=== PATIENT | female | born 1955 | race African-American/Black ===

== ENCOUNTER 2020-09-10 08:32 | Day surgery (SDC) | payer BC, OTHER, SELFPAY ==
[2020-09-03 10:56] VITALS: BMI 45.6
--- NOTE | 2020-09-05 16:39 | MHC.SHP ---
Pre-Procedural Eval Section A The patient is an INPATIENT: No The History & Physical has been completed within 30 days and I have reviewed it.: Yes Section B Chief Complaint: Cataract Left Eye Allergies: Allergies Allergy/AdvReac Type Severity Reaction Status Date / Time No Known Allergies Allergy Unverified 09/03/20 10:48 [No Known Allergies*] Plan Diagnosis/Plan: Unchanged I have reviewed the history and physical and performed a pertinent physical examination on my patient. No changes have occurred unless specified.
--- NOTE | 2020-09-07 08:50 | HO.ANESPROP2 ---
Documented by User: Lolita Feliz 09/07/20 08:50 HPI - Anesthesia Eval Consult details Narrative: 65yo F for Left Cataract Extraction IOL Insertion No prev cataract PCP cleared [facility] Past Medical History Medical History (Updated 09/10/20 @ 09:38 by Monica Pal) Asthma Cervical radiculopathy Constipation Cough GERD (gastroesophageal reflux disease) Iron deficiency anemia Obesity ADITYA on CPAP Osteoarthritis Pre-diabetes Urge incontinence Surgical History Surgical History History of ankle surgery Hx of section Hx of colonoscopy Social History Social History Smoking Status: Never smoker Use of substances other than those prescribed or required for medical reasons: No Have you been hit, kicked, punched, or otherwise hurt by someone within the past year? If so, by whom?: No Advance Directives: No Advance Directives Information Provided: No Advance Directives on File: No Recently lost weight without trying: No Meds Allergies Allergy/AdvReac Type Severity Reaction Status Date / Time No Known Allergies Allergy Unverified 09/03/20 10:48 [No Known Allergies*] Home Medications Medication Instructions Recorded Confirmed Last Taken Type albuterol sulfate 1 vial INHALATION Q4H PRN 09/03/20 09/03/20 Unknown History albuterol sulfate 2 puff INHALATION Q4H PRN 09/03/20 09/03/20 Unknown History benzonatate 1 cap PO Q8H PRN 09/03/20 09/03/20 Unknown History fluconazole 1 tab PO 09/03/20 Unknown History fluticasone propion-salmeterol 2 puff INHALATION BID 09/03/20 09/03/20 Unknown History [Advair HFA] hydrochlorothiazide 1 tab PO DAILY 09/03/20 09/03/20 Unknown History montelukast 1 tab PO DAILY 09/03/20 09/03/20 Unknown History naproxen 1 tab PO BID 09/03/20 09/03/20 Unknown History solifenacin 1 tab PO DAILY 09/03/20 09/03/20 Unknown History Exam Exam Date and Time: September 07, 2020 0850 Height,Weight and Vital Signs: Height 5 ft 5 in Weight 124.284 kg Assessment and Plan Assessment Anesthesia Assessment: Chart Reviewed Documented by User: Monica Pal 09/10/20 09:38 [facility] Past Medical History Medical History (Updated 09/10/20 @ 09:38 by Monica Pal) Asthma Cervical radiculopathy Constipation Cough GERD (gastroesophageal reflux disease) Iron deficiency anemia Obesity ADITYA on CPAP Osteoarthritis Pre-diabetes Urge incontinence Family History Family history of problems with anesthesia: No Surgical History Surgical History History of ankle surgery Hx of section Hx of colonoscopy History of Problems with Anesthesia: No Social History Social History Smoking Status: Never smoker Use of substances other than those prescribed or required for medical reasons: No Have you been hit, kicked, punched, or otherwise hurt by someone within the past year? If so, by whom?: No Advance Directives: No Advance Directives Information Provided: No Advance Directives on File: No Recently lost weight without trying: No Meds Allergies Allergy/AdvReac Type Severity Reaction Status Date / Time No Known Allergies Allergy Unverified 09/03/20 10:48 [No Known Allergies*] Home Medications Medication Instructions Recorded Confirmed Last Taken Type albuterol sulfate 1 vial INHALATION Q4H PRN 09/03/20 09/03/20 Unknown History albuterol sulfate 2 puff INHALATION Q4H PRN 09/03/20 09/03/20 Unknown History benzonatate 1 cap PO Q8H PRN 09/03/20 09/03/20 Unknown History fluconazole 1 tab PO 09/03/20 Unknown History fluticasone propion-salmeterol 2 puff INHALATION BID 09/03/20 09/03/20 Unknown History [Advair HFA] hydrochlorothiazide 1 tab PO DAILY 09/03/20 09/03/20 Unknown History montelukast 1 tab PO DAILY 09/03/20 09/03/20 Unknown History naproxen 1 tab PO BID 09/03/20 09/03/20 Unknown History solifenacin 1 tab PO DAILY 09/03/20 09/03/20 Unknown History Exam Height,Weight and Vital Signs: Vital Signs Temp Pulse Resp BP Pulse Ox 09/10/20 08:52 97.8 F 80 16 126/77 97 Airway Mallampati Class: II TM Dist: >3cm Neck ROM: Full Heart: RRR Lungs: CTAB Assessment and Plan Assessment Anesthesia Assessment: Anesthesia Plan Discussed and Chart Reviewed Final Anesthetic Review NPO: Yes ASA Class: III Final Preanesthetic Review: No Changes in Pt Med Stat, Meds/Allgs Chart Reviewed, Consent Obtained/Reviewed and Anes Risks/Benef Reviewed Patient Risk: Intermediate Procedure Risk: Low Assessment/Block/Sedation in SS: Assess/Block/Sedation-SS Anesthetic Plan Anesthetic Plan: MAC: Disposition: Standard PACU
[2020-09-10 08:52] VITALS: BP 126/77; PULSE 80; RESP 16; TEMP 36.6; O2SAT 97
[2020-09-10] MEDS: Lactated Ringers 500 ML 50 ML IV (09:13)
[2020-09-10] MEDS: Tropicamide 1 % Ophth Sol 3 ML BTL 1 DROP EYE-LEFT ×3 (09:13→09:21)
[2020-09-10] MEDS: Tetracaine HCl/PF 0.5% Oph Sol 4 ML DROPS 1 DROP EYE-LEFT (09:13)
[2020-09-10] MEDS: Phenylephrine HCL 2.5% Oph SoL 2 ML BOTTLE 1 DROP EYE-LEFT ×3 (09:16→09:24)
[2020-09-10 10:14] VITALS: BP 129/70; PULSE 63; RESP 16; TEMP 36.1; O2SAT 97
== END 2020-09-10 10:28 | disposition home or self-care (01) ==
PROVIDERS: PCP Internal Medicine; Visit Provider Ophthalmology
PROC: (CPT 66985; principal; 2020-09-10 10:30)
DX: H25.12 Age-related nuclear cataract, left eye (principal); H52.4 Presbyopia; H52.13 Myopia, bilateral; I10 Essential (primary) hypertension; J45.909 Unspecified asthma, uncomplicated; R73.03 Prediabetes; G47.33 Obstructive sleep apnea (adult) (pediatric)
CPT/HCPCS: 66984; J2250; J3010; J3300; V2632

== ENCOUNTER 2020-09-24 07:13 | Day surgery (SDC) | payer BC, OTHER, SELFPAY ==
[2020-09-03 11:26] VITALS: BMI 45.6
--- NOTE | 2020-09-19 07:49 | MHC.SHP ---
Pre-Procedural Eval Section A The patient is an INPATIENT: No The History & Physical has been completed within 30 days and I have reviewed it.: Yes Section B Chief Complaint: Cataract Right Eye Allergies: Allergies Allergy/AdvReac Type Severity Reaction Status Date / Time No Known Allergies Allergy Unverified 09/03/20 10:48 [No Known Allergies*] Plan Diagnosis/Plan: Unchanged I have reviewed the history and physical and performed a pertinent physical examination on my patient. No changes have occurred unless specified.
--- NOTE | 2020-09-21 12:38 | P.CONAN_ITS ---
Documented by User: Lolita Perezney 09/21/20 12:39 HPI - Anesthesia Eval Consult details Narrative: 65yo F for Right Cataract Extraction IOL Insertion Left eye 09/10 fent 100, mid 2 PCP cleared [facility] Active Problems Active Problems: All Active Problems (Updated 09/10/20 @ 09:38 by Monica Pal) Cough (Acute) Past Medical History Medical History Asthma Cervical radiculopathy Constipation Cough GERD (gastroesophageal reflux disease) Iron deficiency anemia Obesity ADITYA on CPAP Osteoarthritis Pre-diabetes Urge incontinence Surgical History Surgical History History of ankle surgery Hx of section Hx of colonoscopy Social History Social History Are you a primary career and technology education teacher to a significant other at home: No Do you presently have visiting nurse or other home services: No Smoking Status: Never smoker Use of substances other than those prescribed or required for medical reasons: No Have you been hit, kicked, punched, or otherwise hurt by someone within the past year? If so, by whom?: No Advance Directives: No Advance Directives Information Provided: No Advance Directives on File: No Recently lost weight without trying: No Meds Allergies Allergy/AdvReac Type Severity Reaction Status Date / Time No Known Allergies Allergy Unverified 09/03/20 10:48 [No Known Allergies*] Home Medications Medication Instructions Recorded Confirmed Last Taken Type albuterol sulfate 1 vial INHALATION Q4H PRN 09/03/20 09/03/20 Unknown History albuterol sulfate 2 puff INHALATION Q4H PRN 09/03/20 09/03/20 Unknown History benzonatate 1 cap PO Q8H PRN 09/03/20 09/03/20 Unknown History fluconazole 1 tab PO 09/03/20 Unknown History fluticasone propion-salmeterol 2 puff INHALATION BID 09/03/20 09/03/20 Unknown History [Advair HFA] hydrochlorothiazide 1 tab PO DAILY 09/03/20 09/03/20 Unknown History montelukast 1 tab PO DAILY 09/03/20 09/03/20 Unknown History naproxen 1 tab PO BID 09/03/20 09/03/20 Unknown History solifenacin 1 tab PO DAILY 09/03/20 09/03/20 Unknown History Exam Exam Date and Time: September 21, 2020 1238 Height,Weight and Vital Signs: Height 5 ft 5 in Weight 124.284 kg Assessment and Plan Assessment Anesthesia Assessment: Chart Reviewed Documented by User: Deion Canchola 09/24/20 08:29 [facility] Past Medical History Medical History Asthma Cervical radiculopathy Constipation Cough GERD (gastroesophageal reflux disease) Iron deficiency anemia Obesity ADITYA on CPAP Osteoarthritis Pre-diabetes Urge incontinence Surgical History Surgical History History of ankle surgery Hx of section Hx of colonoscopy Social History Social History Are you a primary career and technology education teacher to a significant other at home: No Do you presently have visiting nurse or other home services: No Smoking Status: Never smoker Use of substances other than those prescribed or required for medical reasons: No Have you been hit, kicked, punched, or otherwise hurt by someone within the past year? If so, by whom?: No Advance Directives: No Advance Directives Information Provided: No Advance Directives on File: No Recently lost weight without trying: No Meds Allergies Allergy/AdvReac Type Severity Reaction Status Date / Time No Known Allergies Allergy Unverified 09/03/20 10:48 [No Known Allergies*] Home Medications Medication Instructions Recorded Confirmed Last Taken Type albuterol sulfate 1 vial INHALATION Q4H PRN 09/03/20 09/03/20 Unknown History albuterol sulfate 2 puff INHALATION Q4H PRN 09/03/20 09/03/20 Unknown History benzonatate 1 cap PO Q8H PRN 09/03/20 09/03/20 Unknown History fluconazole 1 tab PO 09/03/20 Unknown History fluticasone propion-salmeterol 2 puff INHALATION BID 09/03/20 09/03/20 Unknown History [Advair HFA] hydrochlorothiazide 1 tab PO DAILY 09/03/20 09/03/20 Unknown History montelukast 1 tab PO DAILY 09/03/20 09/03/20 Unknown History naproxen 1 tab PO BID 09/03/20 09/03/20 Unknown History solifenacin 1 tab PO DAILY 09/03/20 09/03/20 Unknown History Exam Airway Mallampati Class: III TM Dist: >3cm Neck ROM: Full Denture: Upper Heart: [id number] Lungs: cta b/l Assessment and Plan Assessment Anesthesia Assessment: Anesthesia Plan Discussed, PAT Visit and Chart Reviewed Final Anesthetic Review NPO: Yes ASA Class: III Final Preanesthetic Review: No Changes in Pt Med Stat, Meds/Allgs Chart Reviewed, Consent Obtained/Reviewed and Anes Risks/Benef Reviewed Patient Risk: Intermediate Procedure Risk: Low Assessment/Block/Sedation in SS: Assess/Block/Sedation-SS Anesthetic Plan Anesthetic Plan: MAC: and Agree w/ Assess. and Plan Disposition: Standard PACU
[2020-09-24 07:57] VITALS: BP 130/94; PULSE 67; RESP 18; TEMP 36.6; O2SAT 96
[2020-09-24] MEDS: Tetracaine HCl/PF 0.5% Oph Sol 4 ML DROPS 1 DROP EYE-RIGHT (08:02)
[2020-09-24] MEDS: Tropicamide 1 % Ophth Sol 3 ML BTL 1 DROP EYE-RIGHT ×3 (08:02→08:05)
[2020-09-24] MEDS: Phenylephrine HCL 2.5% Oph SoL 2 ML BOTTLE 1 DROP EYE-RIGHT ×3 (08:03→08:06)
[2020-09-24] MEDS: Lactated Ringers 500 ML 50 ML IV (08:14)
--- NOTE | 2020-09-24 09:28 | HO.PNOPHT ---
Ophthalmology Procedure Procedure Date of Service: 09/24/20 Ophthalmology Viscoelastic: Shahnaz Horant Dual Pack Pro Ophthalmology Lenses: TECSAMARA [id number] (15) Procedure Notes: PREOPERATIVE DIAGNOSIS: Decreased visual acuity right eye secondary to cataract POSTOPERATIVE DIAGNOSIS: Same PROCEDURE: Right cataract extraction with intraocular lens insertion SURGEON: Walker Jacinto M.D. ANESTHESIA: Topical/MAC ESTIMATED BLOOD LOSS: None COMPLICATIONS: None After obtaining informed consent, the patient was brought to the operating room suite and placed in the supine position. After adequate sedation per anesthesia, topical drops of Tetracaine were given to the right eye. The eye was then prepped and draped in the usual sterile fashion. The operating room microscope was then positioned over the operative eye and a lid speculum placed. A paracentesis was created. Viscoelastic was then instilled into the anterior chamber. A three plane incision was then created temporally, utilizing a 2.85 mm keratome. Capsulotomy forceps were then utilized to create a circular tear capsulotomy. Hydrodissection and hydrodelineation were carried out until adequate mobilization of the nucleus occurred. Phacoemulsification was then utilized to remove the dense central nucleus followed by removal of the cortical material utilizing the automated aspiration irrigation unit. Viscoelastic was instilled into the posterior capsular bag followed by placement of a posterior chamber intraocular lens without difficulty. The residual Viscoelastic was then removed utilizing the automated IA machine. The wound was checked and found to be watertight. The patient tolerated the procedure well and the lid speculum was removed. Intracameral injection of Vigamox 0.1 mL followed by a subtenon injection of Kenalog-40 0.2 mL were administered. The patient will be seen in the a.m.
[2020-09-24 09:30] VITALS: BP 141/84; PULSE 67; RESP 16; TEMP 36.5; O2SAT 100
== END 2020-09-24 09:45 | disposition home or self-care (01) ==
PROVIDERS: PCP Internal Medicine; Visit Provider Ophthalmology
PROC: (CPT 66985; principal; 2020-09-24 08:40)
DX: H25.11 Age-related nuclear cataract, right eye (principal); H52.13 Myopia, bilateral; H52.4 Presbyopia; I10 Essential (primary) hypertension; G47.33 Obstructive sleep apnea (adult) (pediatric); J45.909 Unspecified asthma, uncomplicated; Z79.51 Long term (current) use of inhaled steroids; Z79.899 Other long term (current) drug therapy
CPT/HCPCS: 66984; J2250; J3010; J3300; V2632

== ENCOUNTER 2021-12-09 12:46 | Outpatient (REF) | payer BC, SELFPAY ==
[2021-12-09 13:06] VITALS: BP 133/72; PULSE 83; RESP 16; TEMP 36.9; O2SAT 98
[2021-12-09 13:07] VITALS: BMI 38.5
== END 2021-12-09 12:47 | disposition home or self-care (01) ==
LOC: HO.MS 12:46
PROVIDERS: Visit Provider Ophthalmology
PROC: (CPT 66821; principal; 2021-12-09 14:50)
DX: H26.491 Other secondary cataract, right eye (principal); H35.61 Retinal hemorrhage, right eye; Z96.1 Presence of intraocular lens; I10 Essential (primary) hypertension; J45.909 Unspecified asthma, uncomplicated; E11.9 Type 2 diabetes mellitus without complications; Z79.899 Other long term (current) drug therapy
CPT/HCPCS: 66821

== ENCOUNTER 2024-05-04 10:33 | Outpatient (AMB) | payer MEDICARE, OTHER, SELFPAY ==
--- NOTE | 2024-05-04 10:35 | MHC.OFFVIS ---
Vital Signs 05/04/24 10:38 Height 5 ft 5.5 in Weight 246 lb 14.684 oz BMI 40.5 BP 130/64 Blood Pressure Location Rt brachial Position Sitting Pulse 92 Pulse Oximetry (%) 98 Oxygen Delivery Method Room Air Intake Visit Reasons: asthma/aditya Catalogue Illustrator Required: No Service Trainer: Service Trainer offered & declined Accompanied by: Self / Same As Patient Allergies No Known Allergies [No Known Allergies*] Allergy (Unverified 05/04/24 10:42) Medication List - Last Reconciled 05/04/24 by Hannah Ward LPN albuterol sulfate 90 mcg/actuation 2 puffs inhalation Q4H PRN albuterol sulfate 1 vial inhalation Q4H PRN alendronate (Fosamax) 70 mg PO QWEEK benzonatate 1 cap PO Q8H PRN fluconazole 1 tab PO hydrochlorothiazide 1 tab PO DAILY montelukast 1 tab PO DAILY semaglutide (Ozempic) 1 mg subcut QWEEK solifenacin 1 tab PO DAILY HPI Comments Details: The patient is here for pulmonary evaluation. The patient is a 68 year woman with known history of asthma in addition to obstructive sleep apnea. She has been having worsening respiratory symptoms and she was made an appointment. Apparently she was initially diagnosed in her young adult years. She was initially treated by her primary care doctor and she felt that she received too much steroids. Subsequently after that she felt that she started developing complications from the steroids including cataracts and also osteoporosis. Subsequently after that she stopped taking any inhaled steroid medication. She had been on Advair for some time. It did bother her throat it was the disc is preparation and therefore she stopped taking it. She continued to use a Combivent inhaler and she also had a albuterol rescue inhaler. Sleep study at this time though. Recently the patient did have knee surgery and she was recovering to physical therapy. She started developing worsening shortness of breath chest tightness and wheezing. She was asked by her therapist to use her inhaler prior to the physical therapy but still continued to have significant wheezing. Therefore it was recommended that she seek pulmonary care. She had been seen at [facility] for many years. The patient had numerous studies done including x-rays a CT scan of the chest which we personally reviewed and also PFTs but I can not find PFTs in the last 510 years. Her CTA did demonstrate a small 2-3 mm nodule in the left lower lobe that was not mentioned on the report. This is from a CT scan from 2019. She also had a chest x-ray done in 2021 after she had a fall some discomfort in the x-ray appeared to be completely normal. In regards to her sleep apnea patient was diagnosed many years ago. She had been using CPAP. But during the pandemic she stopped using it and she had been sleeping upright on a recliner or with a wedge and she has been sleeping okay though she has been waking up tired. Her [place] score is elevated 1124. She is wondering if she needs to go back to using her CPAP. She will need to have a sleep study at this time. [facility] Medical History (Updated 05/04/24 @ 22:47 by [place] Scott MD) ADITYA (obstructive sleep apnea) Cough Osteoarthritis Obesity Cervical radiculopathy Constipation Asthma Pre-diabetes GERD (gastroesophageal reflux disease) Iron deficiency anemia Urge incontinence ADITYA on CPAP Surgical History History of ankle surgery Hx of section Hx of colonoscopy Social History (Updated 05/04/24 @ 10:46 by Hannah Ward LPN) Are you a primary patient care to a significant other at home: No Do you presently have visiting nurse or other home services: No Patient Tobacco Use Status: Never used Tobacco Review of Systems Const Reports daytime sleepiness, Reports difficulty sleeping and Reports fatigue Eyes Reports no additional complaints ENT Reports nasal congestion Card Denies chest pain and Reports dyspnea on exertion Resp Reports cough, Reports dyspnea on exertion and Reports wheezing GI Reports no additional complaints Musc Reports as per HPI, Reports abnormal gait and Reports arthralgias Skin/Breast Denies rash Neuro Reports abnormal gait Endo Reports fatigue Cristi/Lymph Reports no additional complaints Aller/Immun Reports wheezing Physical Exam Vital Signs: Last Vital Signs Pulse 92 05/04/24 10:38 BP 130/64 05/04/24 10:38 Pulse Ox 98 05/04/24 10:38 Oxygen Delivery Method Room Air 05/04/24 10:38 BMI result Body Mass Index 40.5 Const General: comfortable HEENT Head: Yes normocephalic Neck Neck: Yes supple Chest Chest palpation & inspection: normal inspection of the chest Resp Effort & Inspection: normal respiratory effort and prolonged expiratory phase Auscultation: wheezes Cardio Heart sounds: S1 normal heart sound present and S2 normal heart sound present GI Palpation (GI): Soft to palpation Skin General skin exam: no rashes or lesions noted Extrem General: No clubbing and No cyanosis Assessment & Plan Assessment & Plan (1) Cough: Code(s): R05 - Cough Category: Medical Qualifiers: Cough type: chronic Qualified Code(s): R05.3 - Chronic cough (2) ADITYA (obstructive sleep apnea): Code(s): G47.33 - Obstructive sleep apnea (adult) (pediatric) Category: Medical (3) Asthma: Code(s): J45.909 - Unspecified asthma, uncomplicated Category: Medical Qualifiers: Asthma severity: moderate Asthma persistence: persistent Asthma complication type: uncomplicated Qualified Code(s): J45.40 - Moderate persistent asthma, uncomplicated Plan start Advair HFA Use spacer EDWAR as needed Hold combivent for now CXR PFT Home PSG F/U 2-3 months Orders: Orders XR chest 2V Today R05 - Cough PFT pulmonary function test Today R05 - Cough RT home sleep study Today G47.33 - Obstructive sleep apnea (adult) (pediatric) Medications: New fluticasone propion-salmeterol 115-21 mcg/actuation (Advair HFA) 2 puffs inhalation Q12H 30 days 12 grams 11RF inhalational spacing device (Aerochamber MV spacer) As directed 1 ea 0RF Coding Level of Care Code New Pt Level 4 (41325) Diagnoses Chronic cough R05.3 Cough type: chronic ADITYA (obstructive sleep apnea) G47.33 Moderate persistent asthma without complication J45.40 Asthma severity: moderate Asthma persistence: persistent Asthma complication type: uncomplicated Time Spent (min) 40
[2024-05-04 10:38] VITALS: BP 130/64; PULSE 92; O2SAT 98; BMI 40.5
== END 2024-05-04 11:20 | disposition home or self-care (01) ==
PROVIDERS: PCP Internal Medicine; Visit Provider Hospitalist
DX: R05.3 Chronic cough (principal); G47.33 Obstructive sleep apnea (adult) (pediatric); J45.40 Moderate persistent asthma, uncomplicated
CPT/HCPCS: 99204

== ENCOUNTER → 2024-05-04 10:33 | Outpatient (BNVA) | payer MEDICARE, OTHER, SELFPAY | PROVIDERS: PCP Internal Medicine; Visit Provider Hospitalist | DX: J45.40 Moderate persistent asthma, uncomplicated (principal); G47.33 Obstructive sleep apnea (adult) (pediatric); R05.3 Chronic cough; Z99.89 Dependence on other enabling machines and devices | CPT/HCPCS: 99202 ==

== ENCOUNTER 2024-07-22 15:54 | Outpatient (REF) | payer MEDICARE, OTHER, SELFPAY ==
--- NOTE | 2024-07-22 15:57 | PFT_ITS ---
Flows: FEV1: 85 % of predicted at 1.74 L FVC: 96 % of predicted at 2.50 L FEV1/FVC: 70 % Bronchodilator response: Present Volumes: Total lung capacity: 79 % of predicted at 4.08 L Residual volume: 88 % of predicted at 1.71 L Slow vital capacity: 73 % of predicted at 2.37 L Expiratory reserve volume: 35 % of predicted at 0.28 L Diffusion capacity: Normal Impression: Combined mild restrictive and reversible mild obstructive ventilatory defect with positive bronchodilator response. Decreased expiratory reserve volume suggests extrathoracic restriction likely secondary to abdominal obesity. MTDD
== END 2024-07-22 15:55 | disposition home or self-care (01) ==
LOC: HO.RESP 15:54
PROVIDERS: PCP Internal Medicine; Visit Provider Hospitalist
DX: R05.9 Cough, unspecified (principal)
CPT/HCPCS: 94010; 94640; 94727; 94729

== ENCOUNTER → 2024-07-22 15:57 | Outpatient (BNV) | payer MEDICARE, OTHER, SELFPAY | PROVIDERS: PCP Internal Medicine; Visit Provider Internal Medicine Pulmonary Disease | DX: R05.9 Cough, unspecified (principal) | CPT/HCPCS: 94060; 94727; 94729 ==

== ENCOUNTER 2024-07-25 11:04 | Outpatient (AMB) | payer MEDICARE, OTHER, SELFPAY ==
[2024-07-25 11:07] VITALS: BP 118/66; PULSE 97; O2SAT 98; BMI 39.2
--- NOTE | 2024-07-25 11:07 | A.OFFVIS_ITS ---
Vital Signs 07/25/24 11:07 Height 5 ft 5.5 in Weight 239 lb 3.225 oz BMI 39.2 BP 118/66 Blood Pressure Location Rt brachial Position Sitting Pulse 97 Pulse Source Pulse Oximeter Pulse Oximetry (%) 98 Oxygen Delivery Method Room Air Intake Visit Reasons: Asthma/ADITYA Allergies No Known Allergies [No Known Allergies*] Allergy (Unverified 07/25/24 11:11) HPI Comments Details: The patient is a 69 year woman with known history of asthma in addition to obstructive sleep apnea. She has been having worsening respiratory symptoms and she was made an appointment. Apparently she was initially diagnosed in her young adult years. She was initially treated by her primary care doctor and she felt that she received too much steroids. Subsequently after that she felt that she started developing complications from the steroids including cataracts and also osteoporosis. Subsequently after that she stopped taking any inhaled steroid medication. She had been on Advair for some time. It did bother her throat it was the disc is preparation and therefore she stopped taking it. She continued to use a Combivent inhaler and she also had a albuterol rescue inhaler. Sleep study at this time though. Recently the patient did have knee surgery and she was recovering to physical therapy. She started developing worsening shortness of breath chest tightness and wheezing. She was asked by her therapist to use her inhaler prior to the physical therapy but still continued to have significant wheezing. Therefore it was recommended that she seek pulmonary care. She had been seen at [facility] for many years. The patient had numerous studies done including x-rays a CT scan of the chest which we personally reviewed and also PFTs but I can not find PFTs in the last 510 years. Her CTA did demonstrate a small 2-3 mm nodule in the left lower lobe that was not mentioned on the report. This is from a CT scan from 2019. She also had a chest x-ray done in 2021 after she had a fall some discomfort in the x-ray appeared to be completely normal. In regards to her sleep apnea patient was diagnosed many years ago. She had been using CPAP. But during the pandemic she stopped using it and she had been sleeping upright on a recliner or with a wedge and she has been sleeping okay though she has been waking up tired. Her Kindred score is elevated 1124. She is wondering if she needs to go back to using her CPAP. She will need to have a sleep study at this time. 07/25/2024 the patient is here for a pulmonary follow-up visit. Overall the patient has been doing well. She did get sick with an asthma flare-up after she saw me and she did take prednisone as her primary care doctor she is now better although she still not at her baseline. Still having some wheezing at times. She has been using the Advair HFA and has been helping. She also has a rescue inhaler that she uses a couple times a week. The patient did undergo pulmonary function studies and she seems to be having a partial reversible obstruction consistent with uncontrolled asthma and asthma COPD overlap syndrome. Therefore, will go ahead and add an anticholinergic, Spiriva to her regimen. Therefore will maximize her respiratory therapy at this time. The patient is also interested in pulmonary rehabilitation which I believe is an excellent idea. I will put in a referral rinse so she can not start the program here at [place]. She still having daytime drowsiness. The patient needs to have her sleep study. She had to reschedule because she got sick. 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 Will follow-up in 3-4 months to review her sleep study results and to assess her progress on the additional respiratory medicine. [facility] Medical History (Updated 07/25/24 @ 11:30 by [facility] MD) Asthma-COPD overlap syndrome ADITYA (obstructive sleep apnea) Cough Osteoarthritis Obesity Cervical radiculopathy Constipation Asthma Pre-diabetes GERD (gastroesophageal reflux disease) Iron deficiency anemia Urge incontinence ADITYA on CPAP Surgical History History of ankle surgery Hx of section Hx of colonoscopy Social History Are you a primary customer care assistant to a significant other at home: No Do you presently have visiting nurse or other home services: No Patient Tobacco Use Status: Never used Tobacco Review of Systems Const Reports daytime sleepiness, Reports difficulty sleeping and Reports fatigue Eyes Reports no additional complaints ENT Reports nasal congestion Card Denies chest pain and Reports dyspnea on exertion Resp Reports cough, Reports dyspnea on exertion and Reports wheezing GI Reports no additional complaints Musc Reports as per HPI, Reports abnormal gait and Reports arthralgias Skin/Breast Denies rash Neuro Reports abnormal gait Endo Reports fatigue Cristi/Lymph Reports no additional complaints Aller/Immun Reports wheezing Physical Exam Vital Signs: Last Vital Signs Pulse 97 07/25/24 11:07 BP 118/66 07/25/24 11:07 Pulse Ox 98 07/25/24 11:07 Oxygen Delivery Method Room Air 07/25/24 11:07 BMI result Body Mass Index 39.2 Const General: comfortable HEENT Head: Yes normocephalic Neck Neck: Yes supple Chest Chest palpation & inspection: normal inspection of the chest Resp Effort & Inspection: normal respiratory effort and prolonged expiratory phase Auscultation: wheezes Cardio Heart sounds: S1 normal heart sound present and S2 normal heart sound present GI Palpation (GI): Soft to palpation Skin General skin exam: no rashes or lesions noted Extrem General: No clubbing and No cyanosis Assessment & Plan Assessment & Plan (1) Cough: Code(s): R05 - Cough Category: Medical Qualifiers: Cough type: chronic Qualified Code(s): R05.3 - Chronic cough (2) ADITYA (obstructive sleep apnea): Code(s): G47.33 - Obstructive sleep apnea (adult) (pediatric) Category: Medical (3) Asthma: Code(s): J45.909 - Unspecified asthma, uncomplicated Category: Medical Qualifiers: Asthma complication type: uncomplicated Asthma persistence: persistent Asthma severity: moderate Qualified Code(s): J45.40 - Moderate persistent asthma, uncomplicated (4) Asthma-COPD overlap syndrome: Code(s): J44.89 - Other specified chronic obstructive pulmonary disease Category: Medical Plan conitnue Advair HFA start Spiriva Use spacer EDWAR as needed start pulmonary rehab Hold combivent for now CXR Home PSG F/U 4-6 months Orders: Orders Pulmonary Rehab Today J44.89 - Other specified chronic obstructive pulmonary disease Medications: New tiotropium bromide 2.5 mcg/actuation (Spiriva Respimat) 2 puffs inhalation DAILY 1 ea 11RF 30 days prednisone PO daily; Take 6 tabs daily x 3 days, then 5 tabs x 3 days, then 4 tabs x 3 days, then 3 tabs x 3 days, then 2 tabs daily x 3 days, then 1 tab x 3 days to complete. 63 tabs 0RF 18 days Coding Level of Care Code Est Pt Level 4 (96361) Diagnoses Chronic cough R05.3 Cough type: chronic ADITYA (obstructive sleep apnea) G47.33 Moderate persistent asthma without complication J45.40 Asthma complication type: uncomplicated Asthma persistence: persistent Asthma severity: moderate Asthma-COPD overlap syndrome J44.89 Time Spent (min) 17
--- OUTSIDE RECORDS SUMMARY | 2024-07-25 12:16 | XMS_ITS | Clinical Summary ---
Author Organization [facility] Address [address] [place] [address] Care Team Providers Care Frozen Pie Maker Name Role Phone Melanie Meade MD Primary Care Provider Surgical History Surgery Date Site/Laterality Comments ANKLE FRACTURE SURGERY PROCEDURE:ANKLE FRACTURE SURGERY COLONOSCOPY PROCEDURE:COLONOSCOPY SECTION PROCEDURE: SECTION;COMMENT:X 3 KNEE SURGERY 12/16/2021 Right PROCEDURE:KNEE SURGERY;COMMENT:RT TKA sx done by Dr. Rupesh Tai INDUCED 1979 PROCEDURE:INDUCED Medical History Medical History Date Comments Asthma DX:Asthma GERD (gastroesophageal reflux disease) DX:GERD (gastroesophageal reflux disease) Osteoporosis DX:Osteoporosis Sleep apnea DX:Sleep apnea;C OMMENT:uses CPAP Sleep apnea, obstructive DX:Slee p apnea, obstructive Hypertension DX:Hypertension Hyperlipidemia DX:Hyperlipidemi a;COMMENT:states it was a little high no medication Chronic constipation DX:Chronic constipation Prediabetes DX:Prediabetes Anemia DX:Anemia;COMMEN T:iron transfusion weekly in 2103 Respiratory infection DX:Respira tory infection;COMMENT:recent respiratory infection last month 11/10 Urinary incontinence DX:Urinary incontinence Peripheral neuropathy DX:Periphe ral neuropathy;COMMENT:hands Diabetes mellitus, type II (CMS/HCC) DX:Diabetes mellitus, type II (HCC);COMMENT:per patient History of colon polyps DX:Histo ry of colon polyps Family History Medical History Relation Name Comments Diabetes Brother 1 Drug abuse Brother 1 Kidney disease Brother 1 HIV Brother 2 ava No Known Problems Brother 3 tera Alcohol abuse Father Asthma Mother Diabetes Mother Hypertension Mother Stroke Mother Cancer Sister 1 Babita breast Diabetes Sister 1 Babita Cancer Sister 2 Venus ovarian Sarcoidosis Sister 3 Zainab Relation Name Status Comments Brother 1 (Age 58) Kidney dis ease Brother 2 ava Alive Brother 3 tera Alive Father biological fath er Mother (Age 72) asthma/par alized diaphragm Sister 1 Babita Alive Sister 2 Venus Alive Sister 3 Zainab Alive Social History Tobacco Use Types Packs/Day Years Used Date Smoking Tobacco: Never Smokeless Tobacco: Never Alcohol Use Standard Drinks/Week Comments Never 0 (1 standard drink = 0.6 oz pur e alcohol) Sex and Gender Information Value Date Recorded Sex Assigned at Not on file Gender Identity Not on file Sexual Orientation Not on file Obstetrics History Last Filed Vital Signs Vital Sign Reading Time Taken Comments Blood Pressure 100/70 12/29/2023 10:47 AM EDT Sitting Right arm Pulse 81 12/29/2023 10:47 AM EDT Temperature - - Respiratory Rate - - Oxygen Saturation - - Inhaled Oxygen Concentration - - Weight 113 kg (250 lb) 01/11/2024 9:42 AM EDT Height 165.1 cm (5' 5 ) 01/11/2024 9:42 AM EDT Body Mass Index 41.6 01/11/2024 9:42 AM EDT Plan of Treatment Health Maintenance Due Date Last Done Comments Diabetes: Annual Foot Exam 1967 Diabetes: Annual Retina Eye Exam 1967 Zoster Vaccines (1 of 2) 2007 Pneumococcal Vaccine: 65+ Years (2 of 2 - PCV) 03/08/2011 03/08/2010 RSV Immunization Patients 60 + Years Old (1 - Risk 60-74 years 1-dose series) 2017 Cholesterol Screening (Lipid Panel) 05/29/2022 Depression Screening 05/29/2022 Falls Risk Assessment 05/29/2022 Hepatitis C Screening 05/29/2022 Osteoporosis Screening (Bone Density Screening) 05/29/2022 Social Influencers of Health Screening 05/29/2022 Breast Cancer Screening 10/05/2023 10/05/19, 03/26/2020, 01/17/2019 COVID-19 Vaccine (3 - 2023-2 5 season) 2024 07/19/2021, 06/21/2021 Influenza Vaccine (#1) 2024 4, 06/20/2013, 03/08/2010 Diabetes: Annual Urine Albumin-Creatinine Ratio (uACR) 05/31/2024 Diabetes: Blood Sugar Contro l Test (HGBA1C) 06/16/2024 12/16/2023, 12/16/2023 Colorectal Cancer Screening: FIT-DNA (Cologuard) 07/17/2024 07/17/2021, 07/17/2021 Diabetes: Annual GFR (Glomerular Filtration Rate) 12/15/2024 12/16/2023, 12/16/2023, 05/29/2017 Hypertension/CHF/CAD Annual BMP Blood Test 12/15/2024 12/16/2023, 12/16/2023, 05/29/2017 DTaP,Tdap,and Td Vaccines (4 - Td or Tdap) 08/25/2033 08/26/2023, 02/06/2012, 07/25/2002 HIB Vaccines Aged Out No longer eligi ble based on patient's age to complete this topic HPV Vaccines Aged Out No longer eligi ble based on patient's age to complete this topic Hepatitis A Vaccines Aged Out No long er eligible based on patient's age to complete this topic Hepatitis B Vaccines Aged Out No long er eligible based on patient's age to complete this topic IPV Vaccines Aged Out No longer eligi ble based on patient's age to complete this topic MMR Vaccines Aged Out No longer eligi ble based on patient's age to complete this topic Meningococcal ACWY Vaccine Aged Out N o longer eligible based on patient's age to complete this topic RSV Immunization Patients Under 20 months Aged Out No longer eligible b ased on patient's age to complete this topic Varicella Vaccines Aged Out No longer eligible based on patient's age to complete this topic Medical Devices Implanted Type Area Leasing Assistant Device Identifier Shelf Expiration Date Model / Serial / Lot Knee Fem Bsplt W Patel Cope [id number] Implanted:Qty: 1 on 12/16/2021 by Rupesh Tai MD Right: Knee [employer] [id number] 09/01/2026 5517-F-402 / / [id number] Knee Bsplt Triathlon Ti Sz 4 Stry-Howm [id number] Implanted:Qty: 1 on 12/16/2021 by Rupesh Tai MD Right: Knee [employer] [id number] 10/11/2026 5536-B-400 / / [id number] Knee Tib Insrt Cr-X3 [id number] Stry-Howm [id number] Implanted:Qty: 1 on 12/16/2021 by Rupesh Tai MD Right: Knee [employer] [id number] 05/29/2026 5530-G-411 / / [id number] Knee Bsplt Triathlon Ti Sz 3 Stry-Howm [id number] Implanted:Qty: 1 on 01/11/2024 by Rupesh Tai MD Left: Knee [employer] [id number] 07/27/2028 5536-B-300 / / [id number] Tibial Bearing Insert Cr 10mm Stry-Howm [id number] Implanted:Qty: 1 on 01/11/2024 by Rupesh Tai MD Left: Knee [employer] [id number] 03/15/2028 5530-G-310 -E / / [id number] Knee Fem Bsplt W Pa Stry-Howm [id number] Implanted:Qty: 1 on 01/11/2024 by Rupesh Tai MD Left: Knee [employer] [id number] 10/15/2028 5517-F-301 / / [id number] Procedures Procedure Name Priority Date/Time Associated Diagnosis Comments [facility] SCREENING DIGITAL Routine 10/04/2021 8:52 AM EDT Encounter for screening mammogram for malignant neoplasm of breast from Last 3 Months or Most Recently Relevant to Health Maintenance Results * [facility] SCREENING DIGITAL (10/04/2021 8:52 AM EDT) Anatomical Region Laterality Modality Mammography 10/04/2021 8:02 AM EDT Narrative 10/04/2021 8:52 AM EDT [facility] Diagnostic Imaging Department [address] [place] [id number] Patient: ??JACOB SHARPE ?/Age/Sex: 1955 - 66 - F Unit#: ??[id number] ? Location/Status: ??SPDIMAM/REG CLI ? Mnemonic/Ordering Site: ??DIGSC/SPMAM Ordering Physician: ??MELANIE MEADE MD Justin Screening Digital - 10/04/21823 EXAM: [facility] Screening Digital EXAM DATE AND TIME: 10/04/2021 8:25 AM HISTORY: ??Screening. Sister had breast carcinoma at age 63. COMPARISON: ??03/26/20, 01/17/19, 12/28/14 TECHNIQUE: CC and MLO views of both breasts were obtained using full field digital mammography. Bilateral digital breast tomosynthesis was performed in the MLO projection. Computer aided detection with the [employer] 7.2-Zimbra was employed. TISSUE DENSITY: a. The breasts are almost entirely fatty. FINDINGS: No suspicious masses, grouped microcalcifications, or areas of architectural distortion are seen. A cluster of radiolucent nodules in the upper inner right breast is consistent with fat necrosis. Vascular calcification is present. The skin is unremarkable. IMPRESSION: No mammographic evidence of malignancy is seen. A negative mammogram in the presence of a clinically suspicious palpable abnormality does not preclude the possibility of malignancy or alter the indications for biopsy. BI-RADS: ??Category 2: Benign RECOMMENDATION(S): 1: Routine screening mammogram BILATERAL in 1 year. 41306, 39391 3342F, 7058F Dictating Physician: ??RERE MARTIN MD Electronically Signed by: ??RERE MARTIN MD Dic Date/Time: ??10/04/21850 Sign date/Time: ??10/04/21851 Procedure Note Rere Martin MD - 06/11/2022 [facility] Diagnostic Imaging Department [address] [place] [address] Patient: ANNEMARIEJACOB D.O.B./Age/Sex: 1955 - 66 - F Unit#: [id number] Location/Status: [facility] Mnemonic/Ordering Site: [facility] Ordering Physician: MELANIE MEADE MD [facility] Screening Digital - 10/04/21823 EXAM: [facility] Screening Digital EXAM DATE AND TIME: 10/04/2021 8:25 AM HISTORY: Screening. Sister had breast carcinoma at age 63. COMPARISON: 03/26/20, 01/17/19, 12/28/14 TECHNIQUE: CC and MLO views of both breasts were obtained using fullfield digital mammography. Bilateral digital breast tomosynthesis was performedin the MLO projection. Computer aided detection with the [employer] 7.2-Hwas employed. TISSUE DENSITY: a. The breasts are almost entirely fatty. FINDINGS: No suspicious masses, grouped microcalcifications, or areas ofarchitectural distortion are seen. A cluster of radiolucent nodules in the upper innerright breast is consistent with fat necrosis. Vascular calcification is present. The skin is unremarkable. IMPRESSION: No mammographic evidence of malignancy is seen. A negative mammogram in the presence of a clinically suspicious palpable abnormality does not preclude the possibility of malignancy or alter the indications for biopsy. BI-RADS: Category 2: Benign RECOMMENDATION(S): 1: Routine screening mammogram BILATERAL in 1 year. 06075, 32736 3342F, 7025F Dictating Physician: RERE MARTIN MD Electronically Signed by: RERE MARTIN MD Dic Date/Time: 10/04/21850 Sign date/Time: 10/04/21851 Melanie Meade MD [facility] from Last 3 Months or Most Recently Relevant to Health Maintenance Care Teams Frozen Pie Maker Relationship Specialty Start Date End Date Melanie Meade MD [address] [place] [id number] PCP - General Internal Medicine 02/13/21
--- OUTSIDE RECORDS SUMMARY | 2024-07-25 12:16 | XMS_ITS | Continuity of Care Document ---
Author Name [facility] Organization [facility] Care Team Providers Care Debone Processing Supervisor Name Role Phone [facility] Unavailable Unavailable Social History Combined list of available smoking, tobacco, and other social history from Department of Defense and Veterans Affairs facilities. Social History Type Response Date Comment Sourc e This section is an empty social history section. [facility]
--- OUTSIDE RECORDS SUMMARY | 2024-07-25 12:16 | XMS_ITS | Clinical Summary ---
Author Organization [facility] Address [address] [place] [address] Care Team Providers Care Compliance And Control Analyst Name Role Phone Unknown Primary Care Provider [phone] Allergies No known active allergies Medications Medication Sig Dispensed Refills Start Date End Date Status hydroCHLOROthiazide (HYDRODIURIL) 25 MG tablet Take 25 mg by mouth daily. 10/13/2022 Active ibuprofen (MOTRIN) 600 MG tabletIndications:Ac [place] right-sided low back pain without sciatica Take 1 tablet (600 mg total) by mouth 4 times daily (every 6 hours) as needed for mild pain. 20 tablet 12/09/2022 Active cyclobenzaprine (FLEXERIL) 5 MG tabletIndications:Ac [place] right-sided low back pain without sciatica Take 1 tablet (5 mg total) by mouth 3 times daily (every 8 hours) as needed for muscle spasms. 15 tablet 12/09/2022 Active phentermine 30 MG capsule 02/24/2023 Active ipratropium-albutero l (Combivent Respimat) 20-100 mcg/puff inhaler Combivent Respimat 20 mcg-100 mcg/actuation solution for inhalation TAKE 1 PUFF INHALATION 4 TIMES A DAY 06/02/2022 Active albuterol (PROVENTIL HFA; VENTOLIN HFA) 108 (90 Base) MCG/ACT inhaler Inhale 2 puffs 4 times daily (every 6 hours) as needed. Active semaglutide (OZEMPIC) (1 mg/dose pen) prefilled pen injection Inject 1 mg under the skin once a week. Active predniSONE (DELTASONE) 10 MG tabletIndications:Mi ld intermittent asthma without complication Take 1 tablet (10 mg total) by mouth daily. Take 4 tablets by mouth on day 1, 3 tablets by mouth on day 2, 2 tablets by mouth on day 3 and 1 tablet by mouth on day 4. Take all in the morning with food. 10 tablet 06/13/2024 Active Encounters Date Type Department Care Team Description 06/13/2024 10:25 AM EST Office Visit [facility] [address] [place] [address] Brenton Laguna MD [place], [place], [place] Mild intermittent asthma without complication (Primary Dx); Viral URI 06/13/2024 Travel from Last 3 Months Social History Tobacco Use Types Packs/Day Years Used Date Smoking Tobacco: Never Assessed Sex and Gender Information Value Date Recorded Sex Assigned at Female 12/09/2022 11:13 AM EDT Gender Identity Not on file Sexual Orientation Not on file Last Filed Vital Signs Vital Sign Reading Time Taken Comments Blood Pressure 121/76 06/13/2024 10:39 AM EST Pulse 89 06/13/2024 10:39 AM EST Temperature 35.7 ??C (96.3 ??F) 06/13/2024 10:[address] Respiratory Rate - - Oxygen Saturation 100% 06/13/2024 10:39 AM EST Inhaled Oxygen Concentration - - Weight - - Height - - Body Mass Index - - Plan of Treatment Health Maintenance Due Date Last Done Comments Hepatitis C Virus Screening 1955 DTaP/Tdap/Td Vaccines (1 - Tdap) 1976 Mammogram 1997 Colonoscopy 2002 Pneumococcal Vaccines 50+ (1 of 1 - PCV) 2007 Zoster (Shingles) Vaccine (1 of 2) 2007 DXA Bone Density (Females,Ages 65 and older) 2022 Influenza Vaccine 01/21/2024 05/04/2014, , 06/20/2013, Additional history exists COVID-19 Vaccine ( - season) 2024 07/19/2021, 06/21/2021 RSV Vaccine 60 years and older and Patients (1 - 1-dose 75+ series) 2032 Hepatitis B Vaccines Aged Out No long er eligible based on patient's age to complete this topic Care Teams Compliance And Control Analyst Relationship Specialty Start Date End Date Unknown Unknow Provider Address PCP - General 12/09/22
--- OUTSIDE RECORDS SUMMARY | 2024-07-25 12:16 | XMS_ITS ---
Author Name [facility] Organization Unknown Results Test Name/Text Value Interpretation Date Range Source GLUCOSE BLDC GLUCOMTR [facility] 101mg/dL Normal [id number] 70 - 199 [facility] Hgb A1c MFr Bld HPLC 6.1% Above high normal [id number] 9 - 5.7 [facility] DIFFERENTIAL TYPE AUTOMATED Normal [facility] NEUTROPHILS NFR BLD AUTO 53.7% Normal 44 - 74 [facility] BASOPHILS NFR BLD AUTO 0.6% Normal 0 - 2 [facility] MONOCYTES NFR BLD AUTO 10.5% Normal 2 - 12 [facility] HCT VFR BLD AUTO 37% Normal 37 - 47 [facility] MONOCYTES NO. BLD AUTO 0.7K/uL Normal 0 - 0.8 [facility] RDW RBC AUTO RTO 14.8% Normal 12.1 - 16. 2 [facility] PLATELET NO. BLD AUTO 299K/uL Normal 150 - 450 [facility] EOSINOPHIL NO. BLD AUTO 0.2K/uL Normal [id number] 0 - 0.5 [facility] RBC NO. BLD AUTO 4.46M/uL Normal 4.2 - 5.4 [facility] MCH RBC QN AUTO 26.9pg Normal [id number] 25 - 33 [facility] MCHC RBC AUTO [facility] 32.5g/dL Normal 32 - 36 [facility] HGB BLD [facility] 12g/dL Below low normal 12.5 - 16 [facility] BASOPHILS IN BLOOD BY AUTOMATED COUNT 0K/uL Normal 0 - 0.2 [facility] WBC NO. BLD AUTO 7.1K/uL Normal 4 - 10.5 [facility] EOSINOPHIL NFR BLD AUTO 3.3% Normal 0 - 6 [facility] LYMPHOCYTES NFR BLD AUTO 31.9% Normal 20 - 48 [facility] MCV RBC AUTO 83fL Normal 78 - 100 [facility] NEUTROPHILS NO. BLD AUTO 3.8K/uL Normal 1.8 - 7.8 [facility] LYMPHOCYTES NO. BLD AUTO 2.3K/uL Normal 1 - 3.2 [facility] PMV BLD AUTO 8.5fL Normal 7.4 - 11.4 [facility] PREALB SERPL NEPH [facility] 18.2mg/dL Normal 17 - 34 [facility] CREAT SERPL [facility] 0.6mg/dL Normal 0.5 - 1 [facility] BILIRUB SERPL [facility] 0.4mg/dL Normal 0.3 - 1 [facility] AST SERPL [facility] 17U/L Normal 5 - 40 [facility] Glomerular filtration rate/1.73 sq M. predicted 99 Normal 60 - [facility] HCO3 SER SCNC 30mmol/L Normal 24 - 32 [facility] POTASSIUM SERPL [facility] 4.3mmol/L Normal 3.5 - 5.1 [facility] ANION GAP SERPL [facility] 11mmol/L Normal 5 - 14 [facility] PROT SERPL [facility] 7.4g/dL Normal 6.4 - 8.5 [facility] CALCIUM SERPL [facility] 9.8mg/dL Normal 8.4 - 10 .2 [facility] ALP SERPL-CCNC 75U/L Normal 34 - 104 [facility] SODIUM SERPL [facility] 140mmol/L Normal 135 - 145 [facility] GLUCOSE P FAST SERPL [facility] 75mg/dL Normal 70 - 99 [facility] ALBUMIN SERPL BCG [facility] 4.2g/dL Normal 3.5 - 5 [facility] CHLORIDE SERPL [facility] 99mmol/L Normal 98 - 10 7 [facility] ALT SERPL [facility] 14U/L Normal 7 - 52 [facility] BUN SERPL [facility] 22mg/dL Above high normal 7 - 17 [facility] History of Medication Use Medication Directions Dispensed Refills Start Date End Date Status Naltrexone-buPROPion HCl ER (Contrave) 8-90 MG TB12 2 tablets 2 aborted montelukast (Singulair) 10 MG tablet 1 tablet aborted Linzess 290 mcg capsule TAKE 1 CAPSULE B Y MOUTH EVERY DAY active prednisolone acetate 1 % eye drops,suspension INSTILL 1 DROP IN RIGHT EYE FOUR TIMES A DAY FOR FOUR DAYS AND D/C. 023 completed phentermine 15 MG capsule Take 15 mg by mouth every morning before breakfast. 2 024 aborted Ozempic, 0.25 or 0.5 MG/DOSE, 2 MG/3ML SOPN Thursday 4 suspended alendronate 70 mg tablet TAKE 1 TABLET BY MOUTH EVERY WEEK active OptiChamber Feli [facility] spacer active magnesium hydroxide (MILK OF MAGNESIA) 400 MG/5ML suspension 30 mL 30 mL, Oral, Daily as needed, constipation, Starting on Thu01/11/24 at 1553Hold for patients with history of IBS, IBO, Ileostomy. 4 active cyclobenzaprine (FLEXERIL) 5 MG tablet Take 1 tablet (5 mg total) by mouth 3 times daily (every 8 hours) as needed for muscle spasms. 3 023 active diclofenac 1 % topical gel APPLY 2 GRAMS TO THE AFFECTED AREA(S) BY TOPICAL ROUTE 4 TIMES PER DAY 4 active Ipratropium-Albuterol (ALBUTEROL-IPRATROPIUM IN) Inhale into the lungs. 2 024 aborted montelukast (SINGULAIR) 10 MG tablet Take 1 tablet (10 mg total) by mouth every night at bedtime. 2 active ceFAZolin (ANCEF) injection 2 g 2 g, Intravenous, Every 8 hours, First dose on Thu01/11/24 at 2000, For 1 dose, PACU/FloorGive 8 hours after the intra-op cefazolin dose.??For Adults, if ordered IV then reconstitute each 1GM vial with 10mL sterile water or normal saline and administer IV Push over 3-5 minutes. 4 completed Ozempic, 0.25 or 0.5 MG/DOSE, 2 MG/3ML SOPN Thursday 4 active calcium carbonate (TUMS) chewable tablet 500 mg 500 mg, Chew, Every 4 hours PRN, indigestion, heartburn, Starting on Thu01/11/24 at 1553 4 active Mounjaro 2.5 mg/0.5 mL subcutaneous pen injector INJECT 2.5 MG SUBCUTANEOUSLY EVERY WEEK, ROTATE INJECTION SITES active sodium,potassium,mag sulfates 17.5 gram-3.13 gram-1.6 gram oral soln TAKE 177 ML BY MOUTH SEE ADMIN INSTRUCTIONS FOR 2 DOSES. active albuterol sulfate 2.5 mg/3 mL (0.083 %) solution for nebulization USE 1 VIAL INHALATION VIA NEBULIZER EVERY 6 HOURS NEEDED FOR WHEEZE OR FOR SHORTNESS OF BREATH active meloxicam 15 mg tablet completed albuterol (PROVENTIL) (2.5 MG/3ML) 0.083% nebulizer solution INHALE 1 VIAL BY NEB EVERY 6 HOURS NEEDED FOR WHEEZE OR FOR SHORTNESS OF BREATH 2 suspended linaCLOtide (LINZESS PO) Take 290 mcg by mouth daily. active phentermine 15 mg capsule TAKE 1 CAPSULE (15 MG) BY MOUTH ONCE DAILY ON AN EMPTY STOMACH, NO LATER THAN 3PM 023 completed potassium chloride ER 20 mEq tablet,extended release TAKE 1 TABLET BY MOUTH ONCE active ondansetron 4 mg disintegrating tablet active phentermine 30 MG capsule 3 active albuterol (PROVENTIL HFA; VENTOLIN HFA) 108 (90 Base) MCG/ACT inhaler Inhale 2 puffs 4 times daily (every 6 hours) as needed. active gabapentin (NEURONTIN) capsule 100 mg 100 mg, Oral, 3 times daily, First dose on Thu01/11/24 at 1600 4 active Cholecalciferol 25 MCG (1000 UT) tablet Take 5 capsules by mouth every 7 days. For 12 weeks, pt thinks this is 50,000 IU once per week. Takes on thursday active amoxicillin 875 mg-potassium clavulanate 125 mg tablet TAKE 1 TABLET BY MOUTH EVERY 12 HOURS FOR 10 DAYS 024 active hydroCHLOROthiazide (HYDRODIURIL) tablet 25 mg 25 mg, Oral, Daily, First dose on Thu01/12/24 at 0900 2 active linaCLOtide (LINZESS PO) Take 290 mcg by mouth daily. suspended semaglutide (OZEMPIC) (1 mg/dose pen) prefilled pen injection Inject 1 mg under the skin once a week. active vancomycin (VANCOCIN) 2,000 mg in dextrose 5% 500 mL IVPB Premix 2,000 mg, Intravenous, Once, On Thu01/11/24 at 0945, For 1 dose, Pre-opGive pre-op in OR. 4 024 completed ergocalciferol (vitamin D2) 1,250 mcg (50,000 unit) capsule TAKE 1 CAPSULE BY MOUTH EVERY WEEK FOR 12 WEEK(S) 024 active alum & mag hydroxide-simethicone suspension 30 mL 30 mL, Oral, Every 6 hours PRN, indigestion, Starting on Thu01/11/24 at 1553 4 active Combivent Respimat 20 mcg-100 mcg/actuation solution for inhalation TAKE 1 PUFF INHALATION 4 TIMES A DAY active benzonatate (TESSALON) 100 MG capsule TAKE 1 CAPSULE BY MOUTH THREE TIMES A DAY NEEDED FOR COUGH 2 024 aborted hydrochlorothiazide 25 mg tablet TAKE 1 TABLET BY MOUTH EVERY DAY active Naproxen Sodium (Aleve) 220 MG CAPS Take 2 tablets by mouth every 12 (twelve) hours as needed. active bisacodyl (DULCOLAX) suppository 10 mg 10 mg, Rectal, Daily as needed, constipation, Starting on Thu01/11/24 at 1553Hold for patients with history of IBS, IBO, Ileostomy. 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 1 ProblemAct [facility] Radial styloid tenosynovitis active 1 ProblemAct [facility] Osteoarthritis of left knee joint active 7 ProblemAct [facility] Cervical radiculopathy active EncounterDiagnosi sAct [facility] Chronic constipation active ProblemAct [facility] Anemia active ProblemAct [facility] Osteoarthritis of left knee active 2023-12-22 2 ProblemAct [facility] Urinary incontinence, unspecified type active EncounterDiagnosisAct [facility] Prediabetes active EncounterDiagnosisAct [facility] Sleep apnea, obstructive active ProblemAct [facility] Chest pain, unspecified type active EncounterDiagnosisAct [facility] Hypertension, unspecified type active EncounterDiagnosisAct [facility] Gastroesophageal reflux disease, unspecified whether esophagitis present active EncounterDiagnosisAct [facility] Peripheral neuropathy active ProblemAct [facility] Asthma, unspecified asthma severity, unspecified whether complicated, unspecified whether persistent active EncounterDiagnosisAct [facility] Osteoporosis, unspecified osteoporosis type, unspecified pathological fracture presence active EncounterDiagnosisAct [facility] Class 3 obesity (HCC) active EncounterDiagnosis Act [facility] Hyperlipidemia, unspecified hyperlipidemia type active EncounterDiagnosisAct [facility] Viral URI active EncounterDiagnosisAct HHCCT Dyspnea on exertion active EncounterDiagnosisAc t [facility] Osteoarthritis of left knee active EncounterDiagnosisAct [facility] Immunizations Vaccine Date Source Lot Number Status Covid-19 (Moderna 12+) 100mcg/0.5mL dosage [facility]/21[facility] Covid-19 (Moderna 12+) 100mcg/0.5mL dosage 07/19/2021 [facility] completed
--- OUTSIDE RECORDS SUMMARY | 2024-07-25 12:16 | XMS_ITS | Data Portability ---
Author Organization [place] [facility] Satnam Albarran AONE Spangler Address [address] [place] [address] Care Team Providers Care Professor Of Geology Name Role Phone MAGO SHEN Primary Care Provider [phone] Assessment Encounter Date Assessment Date Assessment LastModified by Organization Details LastModified Time 01/27/2024 01/27/2024 HPI : Patient is doing well at 2 week follow up status post left total knee arthroplasty. They deny fever, chest pain and shortness of breath. They are compliant with anticoagulation protocol. She reports good compliance with aspirin for DVT prophylaxis. She gets good relief with methocarbamol and requests a refill. She is having some difficulty achieving a full night sleep. She has been doing home physical therapy and has plans to switch over to outpatient PT this coming Thursday. She has not encountered any specific problems since the date of her surgery. Physical Exam : Patient is well nourished, well- developed, in no acute distress, with appropriate mood and affect. The patient demonstrates good knee strength. The incision is clean and dry with no sign of infection. Negative calf tenderness and Brea's sign. Range of motion is from 0-90 degrees. Assessment/Plan : The patient is doing well status post knee arthroplasty. Continue 28 day course of anticoagulation therapy. The patient will do physical therapy and return for follow-up in 1 month for re-evaluation; sooner with any problems. She could use Tylenol PM or a dose of Benadryl at bedtime as a temporary sleep aid. She will be provided a refill for methocarbamol. This patient was seen and evaluated by Ritesh Lee MS, PA-C in indirect conjunction with documenting/superv ising provider Rupesh Tai MD. He agrees with history, physical examination, tests/diagnostic imaging, and treatment plan. [email or web address] Not available 01/27/2024 09:59:47 02/23/2024 02/23/2024 HPI : Patient is here for a 6 week follow-up from a left total knee replacement. She is recovering well. Her pain is improving. She is working with therapy. Her main issue is working on the knee flexion. She felt she did not get a good start with therapy, and now has switched to a new therapy team. She would like to go 3 times a week which I think is reasonable. Physical Exam : Patient is well nourished, well- developed, in no acute distress, with appropriate mood and affect. The patient is AAOx3. The patient demonstrates good knee motion and strength. The incision is well healed. Range of motion today 0 to 100 degrees. Assessment/Plan : The patient is functioning well 6 weeks from total knee arthroplasty. She is recovering well, although we would like her to get more knee flexion. She is going up her physical therapy to 3 times per week. She will follow-up with me in 1 month for range of motion check. Not available 02/23/2024 13:02:06 03/29/2024 03/29/2024 Coleen is here for range of motion check for her left knee. At last visit in February her range of motion was to about 100 degrees. She has been working hard with physical therapy. She now has active range of motion to 111 degrees of flexion, with passive range of motion to 118 degrees. This is significantly improved. She is now working on strengthening. She is happy with her progress so far. She will be off of work until May 22 we reviewed like her to return to work at that time. She will follow-up with me in about 2 months with x-rays of the left knee at that time. Not available 03/29/2024 13:47:29 04/22/2024 04/22/2024 The above findin gs are discussed in detail today with the patient. She is evidence of a right middle finger trigger finger, left MP joint arthritis, and left de Quervain's tenosynovitis. Pathology and prognosis were discussed. The trigger finger we discussed treatment options which include continued observation, steroid injection, or consideration for A1 jalyn release. She would like to continue to think about her options and will observe at this time. She is leaning more toward surgery however she is not ready to do this at this time. For the MP joint arthritis, we discussed pathology and prognosis for arthritis. Treatment options include activity modification, anti-inflammatorie s, ice or heat. I will send in a prescription for diclofenac cream which she can try as well as Aleve or other NSAIDs. She will continue with activities as tolerated. For deep venous tenosynovitis, pathology expected prognosis were discussed. Treatment options include activity modification, bracing, anti-inflammatorie s, consideration for steroid injection, or surgery. She would like to start with the brace and anti-inflammatorie s which I will provide her today. She will return to see me if her symptoms recur or worsen. All of her questions were answered, she is in agreement with plan [email or web address] Not available 04/22/2024 12:25:25 05/27/2024 05/27/2024 The above findin gs were discussed in detail today with patient. She continues to have symptoms of left Dequervain's tenosynovitis which is symptomatic for her. Treatment options include continued nonoperative treatment in the form of activity modification, bracing, anti-inflammatorie s, or considering a cortisone injection. She like to proceed with injections today. Details of injection and as well as risks were discussed, including but not limited to infection, bleeding, nerve injury, no improvement, worsening of symptoms, flare reaction, skin depigmentation, and lipodystrophy. I let them know it can take 2 days to 2 weeks to start working and up to 6 weeks to take its full effect. They understand this and gave verbal consent. They tolerated the procedure well. She can continue to wear her brace and take anti-inflammatorie s and ice as needed until the injection starts to work. After that she can wean out of the brace and increase activities as tolerated. She will follow-up with me as needed if symptoms recur or do not improve in 6 weeks. [email or web address] Not available 05/30/2024 16:17:40 Plan of Treatment Reminders Order Date Submit Date Provider Last Modified By Organization Details Last Modified Time Details Appointments None recorded . Lab None recorded . Referral None recorded . Procedures None recorded . Surgeries None recorded . Imaging XR, wrist, 3 or more view 2023 [facility], [address], [address], [place], [address], 13:17:46 XR, wrist, 3 or more view 2023 024 [facility], [address], [address], [place], [address], 4 13:17:46 Medication Orders methocar bamol 750 mg tablet 2023 [id number], [address] [place], [address], 13:53:04 diclofen ac 1 % topical gel 2023 [id number], [address] [place], [address], 11:55:53 lidocain e (PF) 10 mg/mL (1 %) injectio n solution 2023 024 [email or web address] Not available 11:49:48 triamcin olone acetonid e 40 mg/mL suspensi on for injectio n 2023 024 [email or web address] Not available 11:49:48 Patient TargetsNo targets recorded. Patient Instructions Encounter Date Encounter Id Patient Instructions Last Modified By Organization Details Last Modified Time 04/22/2024 [id number] views of bilateral wrist were ordered and reviewed today, this demonstrates no acute findings. 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 Otherwise anatomic alignment of the wrist and carpal bones. [email or web address] Not available 04/22/2024 12:24:00 Reason for Referral None Reported. 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 188084185 Active 2023 Blanquita brewer MD [address], [place], [address], [place] [facility] 4 11:55:32 Radial styloid tenosynovit is 32632552 Active 2023 Blanquita brewer MD [address], [place], [address], [place] [facility] 4 12:25:32 Triggering of digit 205737564 Active 2023 Blanquita brewer MD [address], [place], [address], [place] [facility] 4 12:25:41 Acquired trigger finger of right middle finger 7072361941430 05 Active 2022 Ayden Khan MD [address], [place], [address], [place] [facility] 3 11:23:45 Problem Notes None recorded. Procedures Surgical History Date Name Laterality Status Provider Name and Address Organization Details Recorded Time 05/27/20 24 LES trigger finger/De Quervain's injection completed MD [address], [place], [address], [place] [facility] 05/30/2024 16:16:50 01/11/20 24 TOTAL KNEE ARTHROPLASTY (SURG) completed Macie Hopson [place] [facility] 01/12/2024 09:00:37 10/02/19 24 TOSHIA Knee Injection completed AURA REYES PA-C [address], [place], [address], [place] [facility] 10/02/2023 11:25:23 05/19/20 23 TOSHIA Knee Injection completed AURA REYES PA-C [address], [place], [address], [place] [facility] 05/19/2023 17:01:18 02/27/20 23 TOSHIA Knee Injection completed AURA REYES PA-C [address], [place], [address], [place] [facility] 02/26/2023 11:02:17 12/02/19 23 TOSHIA Knee Injection completed AURA REYES PA-C [address], [place], [address], [place] [facility] 12/01/2022 10:09:03 arthroplasty of knee completed Paula Beckford [place] [facility] 12/01/2022 09:53:12 delivery completed Paula Beckford [facility] 12/01/2022 09:53:19 Imaging Results None recorded. Procedure Notes None recorded. Medical Equipment None Reported. Allergies No known drug allergies Medications Name Sig Start Date Stop Date Status Note LastModified by Organization Details LastModified Time metformin 500 mg tablet TAKE 1 TABLET BY MOUTH TWICE A DAY 02/22 completed Not Available Not Available Not Available prednisone 10 mg tablet PLEASE SEE ATTACHED FOR DETAILED DIRECTION S active Not Available Not Available No t Available albuterol sulfate 2.5 mg/3 mL (0.083 %) solution for nebulizatio n USE 1 VIAL INHALATIO N VIA NEBULIZER EVERY 6 HOURS NEEDED FOR WHEEZE OR FOR SHORTNESS OF BREATH active Not Available Not Available No t Available azithromyci n 250 mg tablet TAKE 2 TABLETS BY MOUTH TODAY, THEN TAKE 1 TABLET DAILY FOR 4 DAYS 12/03 completed Not Available Not Available Not Available meloxicam 15 mg tablet 03/29 completed Not Available Not Available Not Available prednisone 20 mg tablet PLEASE SEE ATTACHED FOR DETAILED DIRECTION S 03/29 completed Not Available Not Available Not Available alendronate 70 mg tablet TAKE 1 TABLET BY MOUTH EVERY WEEK active Not Available Not Available No t Available phentermine 15 mg capsule TAKE 1 CAPSULE (15 MG) BY MOUTH ONCE DAILY ON AN EMPTY STOMACH, NO LATER THAN 3PM 12/03 completed Not Available Not Available Not Available phentermine 30 mg capsule 05/19 completed Not Available Not Available Not Available hydromorpho ne 2 mg tablet 02/22 completed Not Available Not Available Not Available prednisolon e acetate 1 % eye drops,suspe nsion INSTILL 1 DROP IN RIGHT EYE FOUR TIMES A DAY FOR FOUR DAYS AND D/C. 12/03 completed Not Available Not Available Not Available methocarbam ol 750 mg tablet TAKE 1 TABLET BY MOUTH EVERY 6 HOURS NEEDED 02/22 completed Not Available Not Available Not Available benzonatate 100 mg capsule TAKE 1 CAPSULE BY MOUTH THREE TIMES A DAY NEEDED FOR COUGH 02/26 completed Not Available Not Available Not Available triamcinolo ne acetonide 40 mg/mL suspension for injection Take 20 mg by injection route. 2023 active Not Available Not Available Not Avai lable pantoprazol e 40 mg tablet,jackie yed release 02/22 completed Not Available Not Available Not Available hydrochloro thiazide 25 mg tablet TAKE 1 TABLET BY MOUTH EVERY DAY active Not Available Not Available No t Available gabapentin 100 mg capsule TAKE 1 CAPSULE BY MOUTH 3 TIMES A DAY active Not Available Not Available No t Available ergocalcife rol (vitamin D2) 1,250 mcg (50,000 unit) capsule TAKE 1 CAPSULE BY MOUTH EVERY WEEK FOR 12 WEEK(S) 03/29 completed Not Available Not Available Not Available ibuprofen 600 mg tablet TAKE 1 TABLET BY MOUTH EVERY DAY WITH FOOD OR MILK NEEDED 10/15 completed Not Available Not Available Not Available albuterol sulfate HFA 90 mcg/actuati on aerosol inhaler INHALE 2 PUFFS INHALATIO N EVERY 4 HOURS NEEDED FOR WHEEZE OR FOR SHORTNESS OF BREATH active Not Available Not Available No t Available ondansetron 4 mg disintegrat ing tablet 03/29 completed Not Available Not Available Not Available fluticasone propionate 50 mcg/actuati on nasal spray,suspe nsion SPRAY 1 SPRAY BY INTRANASA L ROUTE EVERY DAY FOR 30 DAYS 12/03 completed Not Available Not Available Not Available amoxicillin 875 mg-potfabianoiu m clavulanate 125 mg tablet TAKE 1 TABLET BY MOUTH EVERY 12 HOURS FOR 10 DAYS 02/22 completed Not Available Not Available Not Available cyclobenzap rine 5 mg tablet TAKE 1 TABLET BY MOUTH 3 TIMES DAILY (EVERY 8 HOURS) NEEDED FOR MUSCLE SPASMS. 05/19 completed Not Available Not Available Not Available lidocaine (PF) 10 mg/mL (1 %) injection solution Take 1 mL by injection route. 2023 active Not Available Not Available Not Avai lable fluticasone propionate 115 mcg-salmete rol 21 mcg/actuati on HFA inhaler active Not Available Not Available Not Available diclofenac 1 % topical gel APPLY 2 GRAMS TO THE AFFECTED AREA(S) BY TOPICAL ROUTE 4 TIMES PER DAY 2023 active Not Available Not Available Not Avai lable tranexamic acid 650 mg tablet active Not Available Not Available Not Available sodium,pota ssium,mag sulfates 17.5 gram-3.13 gram-1.6 gram oral soln TAKE 177 ML BY MOUTH SEE ADMIN INSTRUCTI ONS FOR 2 DOSES. 02/22 completed Not Available Not Available Not Available lidocaine (PF) 100 mg/5 mL (2 %) injection syringe Take 4 mL by injection route. 04/22 completed Not Available Not Available Not Available [facility] spacer active Not Available Not Available Not Available Combivent Respimat 20 mcg-100 mcg/actuati on solution for inhalation INHALE 1 PUFFS BY MOUTH 4 TIMES A DAY active Not Available Not Available No t Available Linzess 290 mcg capsule TAKE 1 CAPSULE BY MOUTH EVERY DAY 04/22 completed Not Available Not Available Not Available potassium chloride ER 20 mEq tablet,exte nded release TAKE 1 TABLET BY MOUTH ONCE 02/22 completed Not Available Not Available Not Available Ozempic 1 mg/dose (4 mg/3 mL) subcutaneou s pen injector INJECT 1 MG SUBCUTANE OUSLY EVERY WEEK active Not Available Not Available No t Available Mounjaro 2.5 mg/0.5 mL subcutaneou s pen injector INJECT 2.5 MG SUBCUTANE OUSLY EVERY WEEK, ROTATE INJECTION SITES 02/22 completed Not Available Not Available Not Available Ozempic 0.25 mg or 0.5 mg (2 mg/3 mL) subcutaneou s pen injector 0.5 MG SUBCUTANE OUS INJECTION EVERY WEEK,INST R:ROTATE INJECTION SITES 04/22 completed Not Available Not Available Not Available Vitals Date Recorded Body height Provider Name an d Address Organization Details Last Updated DateTime 02/23/2024 165.1 cm Frances Funesbeti [facility] 02/23/2024 12:52:12 Date Recorded Body height Provider Name an d Address Organization Details Last Updated DateTime 03/29/2024 165.1 cm [facility] 03/29/2024 13:44:15 Date Recorded Body height Body mass index (BMI) Body weight Provider Name and Address Organization Details Last Updated DateTime 04/22/2024 165.1 cm 38.3 kg/m2 589088.25 g Colleen Bowles [facility] 04/22/2024 11:20:11 Social History Question Answer Notes LastModified by Organizat ion Details LastModified Time Tobacco Smoking Status Never Smoker Paula Beckford [facility], [facility] 12/01/2022 09:51:22 What Is Your Level Of Alcohol Consumption? None Information not available 12/01/2022 Do You Use Any Illicit Or Recreational Drugs? No Information not available 12/01/2022 Do You Or Have You Ever Used Any Other Forms Of Tobacco Or Nicotine? No Information not available 12/01/2022 Sex: Unknown Functional Status None recorded. Mental Status None recorded. Family History Relationship Description Onset Age of this Age Resolved Age Notes LastModified by Organization Details LastModified Time Father Family history of malignant neoplasm [email or web address] Not available 11/20 09:52:02 Sister Family history of malignant neoplasm [email or web address] Not available 11/20 09:52:02 Sister Diabetes mellitus [email or web address] Not available 11/20 09:52:50 Mother Diabetes mellitus [email or web address] Not available 11/20 09:52:50 Brother Diabetes mellitus [email or web address] Not available 11/20 09:52:50 Medical History Condition Response Gastrointestinal Disease Y Asthma Y Hypertension Y Gynecological HistoryNo gynecological history recorded. 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 0411057166 18331 M65.331 [id number] MD RISA Quinonez [address] [address] 02/26/2023 09:48:44 02/26/2023 10:57:50 Osteoarthritis of left knee joint 0179233727 61057 M17.12 [id number] MD RISA Quinonez [address] [address] 05/19/2023 09:58:09 05/19/2023 10:46:46 Osteoarthritis of left knee joint 3471197266 82445 M17.12 [id number] MD RISA Quinonez [address] [address] 06/23/2023 13:54:40 06/23/2023 14:27:57 Osteoarthritis of left knee joint 2956723335 35746 M17.12 [id number] MD RISA Quinonez [facility] [address] [place] [address], ite [address] [place] [address] 10/02/2023 10:29:22 10/02/2023 11:23:55 Osteoarthritis of left knee joint 7229499971 73695 M17.12 [id number] MD RISA Quinonez [address] [address] 10/16/2023 13:19:48 10/16/2023 13:50:13 Osteoarthritis of left knee joint 3288106389 32314 M17.12 Arthritis of knee 811004 002 M13.869 [id number] MD RISA Quinonez [address] [address] 01/07/2024 09:07:02 01/07/2024 15:41:48 Osteoarthritis of left knee joint 8308701695 90733 M17.12 [id number] MD RISA Quinonez [address] [place] [address] [place] [address] 01/27/2024 09:39:09 01/27/2024 10:04:22 History of total knee arthroplasty 7654206575 105 Z96.652 Additional diagnosis detail: Status post left knee replacemen t [id number] MD RISA Quinonez [address] [address] 02/23/2024 12:41:43 02/23/2024 13:02:10 History of total knee arthroplasty 6074498873 105 Z96.652 [id number] MD RISA Quinonez [address] [address] 03/29/2024 13:29:02 03/29/2024 13:46:47 History of total knee arthroplasty 4607707620 105 Z96.652 [id number] MD RISA Gold [address] [address] 04/22/2024 11:02:24 04/22/2024 11:59:00 Pain of right wrist 2659630365 36217 M25.531 Pain of left wrist 53075 21343 69597 M25.532 Osteoarthr itis of metacarpophalangeal joint of finger 665713029 M19.042 Radial sty loid tenosynovitis 22105842 M65.4 Triggering of digit 2399 55991 M65.331 [id number] MD RISA Gold [address] [place] [address] 05/27/2024 14:52:40 05/27/2024 15:44:50 Radial styloid tenosynovitis 11980021 M65.4 Health Concerns Section Related Observation LastModified by Organization Detai ls LastModified Time None Recorded Concern Status LastModified by Organization Details LastModified Time None Recorded Advance Directives Directive None Recorded Payers Encounter Date Sequence Insurance Name Policy Number Policy Lassiter Covered Member ID Lassiter Member ID Guarantor Name 01/27/2024 1 [employer] (MEDICARE REPLACEMENT PPO) [id number] 1 Coleen A Machado [id number] Gino Machado 01/27/2024 2 [employer] - FOR LIFE (MEDICARE SUPPLEMENT) Gino Machado [id number] Gino Machado 02/23/2024 1 [employer] (MEDICARE REPLACEMENT PPO) [id number] Coleen A Machado [id number] Gino Machado 02/23/2024 2 [employer] - FOR LIFE (MEDICARE SUPPLEMENT) Gino Machado [id number] Gino Machado 03/29/2024 1 [employer] (MEDICARE REPLACEMENT PPO) [id number] 1 Coleen A Machado [id number] Gino Machado 03/29/2024 2 [employer] - FOR LIFE (MEDICARE SUPPLEMENT) Gino Machado [id number] Gino Machado 04/22/2024 1 [employer] (MEDICARE REPLACEMENT PPO) [id number] Coleen A Machado [id number] Gino Machado 04/22/2024 2 [employer] - FOR LIFE (MEDICARE SUPPLEMENT) Gino Machado [id number] Gino Machado 05/27/2024 1 [employer] (MEDICARE REPLACEMENT PPO) [id number] 1 Coleen A Machado [id number] Gino Machado 05/27/2024 2 [employer] - FOR LIFE (MEDICARE SUPPLEMENT) Gino Machado [id number] Gino Machado Notes Date Note Type Note Provider Name and Address Organization Details Recorded Time 04/22/2024 text/html This is a 68-year-old bhmdr-mmao-auwyucu t female who presents with bilateral, right worse than left hand pain. On the right side, she has a history of a middle finger trigger finger which was previously seen by Dr. Khan on 12/03/2022. She elected to continue to observe symptoms. She notes that it did get better for a time however she notes that it has getting worse. She notes pain over the A1 jalyn and stiffness in the finger especially with flexion. She notes some triggering with range of motion. On the left side she notes stiffness in her MP joints especially in the morning. She also has pain localized at the radial wrist. This has been going on for the last few months. She takes Tylenol arthritis which is somewhat helpful, she uses a compression glove which is somewhat helpful. Blanquita Killian MD [address], [place], [address], [place] [facility] 04/22/2024 12:25:57 05/27/2024 text/html She presents for follow-up of her left wrist Dequervain's tenosynovitis, she has tried brace, activity modification, anti-inflammatorie s with continued pain. She would like to consider a cortisone injection today. Blanquita Killian MD [address], [place], [address], [place] [facility] 05/30/2024 16:18:17 OBGyn Episode No OBEpisode recorded.
--- OUTSIDE RECORDS SUMMARY | 2024-07-25 12:16 | XMS_ITS | Continuity of Care Document ---
Author Organization [facility] Address [address] [place] [address]- Support Name Relationship Address Phone SHARPE, IAN Personal Relationship Unknown Nancy vailable SHARPE, IAN Personal Relationship Unknown Nancy vailable SHARPE, IAN Personal Relationship Unknown Nancy vailable SHARPE, IAN Personal Relationship Unknown Nancy vailable SHARPE, IAN Personal Relationship Unknown Nancy vailable SHARPE, IAN spouse Unknown Unavailable SHARPE, IAN Personal Relationship Unknown Nancy vailable SHARPE, IAN Personal Relationship Unknown Nancy vailable SHARPE, ZENAIDA Personal Relationship Unknown Nancy vailable SHARPE, ZENAIDA Personal Relationship Unknown Nancy vailable SHARPE, IAN Personal Relationship Unknown Nancy vailable LACEY, IAN Personal Relationship Unknown Unav ailable SHARPE, IAN Personal Relationship Unknown Nancy vailable SHARPE, IAN Personal Relationship Unknown Nancy vailable SHARPE, IAN Personal Relationship Unknown Nancy vailable SHARPE, IAN Personal Relationship Unknown Nancy vailable SHARPE, IAN Personal Relationship Unknown Nancy vailable SHARPE, IAN Personal Relationship Unknown Nancy vailable SHARPE, IAN Personal Relationship Unknown Nancy vailable SHARPE, IAN Personal Relationship Unknown Nancy vailable SHARPE, IAN Personal Relationship Unknown Nancy vailable SHARPE, IAN Personal Relationship Unknown Nancy vailable SHARPE, IAN Personal Relationship Unknown Nancy vailable SHARPE, IAN Personal Relationship Unknown Nancy vailable SHARPE, IAN Personal Relationship Unknown Nancy vailable SHARPE, ZENAIDA Personal Relationship Unknown Nancy vailable SHARPE, IAN Personal Relationship Unknown Nancy vailable SHARPE, IAN Personal Relationship Unknown Nancy vailable SHARPE, IAN Personal Relationship Unknown Nancy vailable SHARPE, IAN Personal Relationship Unknown Nancy vailable SHARPE, IAN Personal Relationship Unknown Nancy vailable SHARPE, IAN Personal Relationship Unknown Nancy vailable SHARPE, IAN Personal Relationship Unknown Nancy vailable SHARPE, IAN Personal Relationship Unknown Nancy vailable SHARPE, IAN Personal Relationship Unknown Nancy vailable SHARPE, IAN Personal Relationship Unknown Nancy vailable SHARPE, IAN Personal Relationship Unknown Nancy vailable SHARPE, IAN Personal Relationship Unknown Nancy vailable SHARPE, IAN Personal Relationship Unknown Nancy vailable SHARPE, IAN Personal Relationship Unknown Nancy vailable SHARPE, IAN Personal Relationship Unknown Nancy vailable SHARPE, IAN Personal Relationship Unknown Nancy vailable GARCÍA, DARSHAN child Unknown Unavailable SHARPE, IAN Personal Relationship Unknown Nancy vailable SHARPE, IAN Personal Relationship Unknown Nancy vailable SHARPE, IAN Personal Relationship Unknown Nancy vailable SHARPE, IAN Personal Relationship Unknown Nancy vailable SHARPE, IAN Personal Relationship Unknown Nancy vailable SHARPE, IAN Personal Relationship Unknown Nancy vailable SHARPE, IAN Personal Relationship Unknown Nancy vailable SHARPE, IAN Personal Relationship Unknown Nancy vailable SHARPE, IAN Personal Relationship Unknown Nancy vailable SHARPE, IAN Personal Relationship Unknown Nancy vailable SHARPE, IAN Personal Relationship Unknown Nancy vailable SHARPE, IAN Personal Relationship Unknown Nancy vailable SHARPE, IAN Personal Relationship Unknown Nancy vailable SHARPE, IAN Personal Relationship Unknown Nancy vailable SHARPE, IAN Personal Relationship Unknown Nancy vailable SHARPE, IAN Personal Relationship Unknown Nancy vailable SHARPE, IAN Personal Relationship Unknown Nancy vailable SHARPE, IAN Personal Relationship Unknown Nancy vailable SHARPE, IAN Personal Relationship Unknown Nancy vailable SHARPE, IAN Personal Relationship Unknown Nancy vailable SHARPE, IAN Personal Relationship Unknown Nancy vailable SHARPE, IAN Personal Relationship Unknown Nancy vailable Care Team Providers Care Blanket Weaver Name Role Phone Noemy LAYNE, Melanie Primary Care Physician [id number] Date(s): 05/31/24 - 06/30/24 [facility] [address] [place] [phone]- Encounter Type: Triage Allergies, Adverse Reactions, Alerts Substance Criticality Severity Reaction Reaction Severity Status metFORMIN diarrhea Active Immunizations Given and Recorded Vaccine Date Status Refusal Reason tetanus/diphtheria/pertussis, acel(Tdap) 1 08/26/23 Given tetanus/diphtheria/pertussis, acel(Tdap) 2 02/06/12 Given SARS-CoV-2 (COVID-19) mRNA-1273 vaccine 07/19/21 R ecorded SARS-CoV-2 (COVID-19) mRNA-1273 vaccine 06/21/21 R ecorded influenza virus vaccine, inactivated 05/04/14 Give n influenza virus vaccine, inactivated 06/20/13 Give n influenza virus vaccine, inactivated 03/08/10 Give n pneumococcal 23-valent vaccine 03/08/10 Given tetanus-diphtheria toxoids (Td) 07/25/02 Given 1Result Comment: [facility] [id number] 2Admin Note: VIS: 07/15/11 Medications Albuterol (Eqv-ProAir HFA) 90 mcg/inh inhalation aerosol 2 puffs, Inhalation, Every 4 hours, PRN NEEDED FOR WHEEZE OR FOR SHORTNESS OF BREATH, # 25.5 each, 1 Refills, Maintenance, 05/24/23 8:29:00 PM EST, [facility]/pharmacy #[id number], 90, 2 puffs Inhalation Every 4 hours,PRN: NEEDED FOR WHEEZE OR FOR SHORTNESS OF BREATH, 161.9, cm, 07/22/22 15:09:00 EST, Height Start Date: 05/24/23 Status: Ordered Quantity: 25.5 Unit: each Repeat number: 2 albuterol 0.083% inhalation solution 1 vials, Inhalation, Every 6 hours, PRN NEEDED FOR WHEEZE OR FOR SHORTNESS OF BREATH, # 25 each,5 Refills, 08/26/23 11:27:00 AM EST, [facility]/pharmacy #[id number], 162.5, cm, 08/26/23 10:56:00 EST, Height Start Date: 08/26/23 Status: Ordered Quantity: 25.0 Unit: each Repeat number: 6 Combivent Respimat 20 mcg-100 mcg/inh inhalation aerosol 1 puffs, Inhalation, 4 times a day, # 12 mL, 5 Refills, Maintenance, 08/26/23 11:29:00 AM EST, [facility]pharm[facility] #[id number], 90, 1 puffs Inhalation 4 times a day, 162.5, cm, 08/26/23 10:56:00 EST, Height Start Date: 08/26/23 Status: Ordered Quantity: 12.0 Unit: mL Repeat number: 6 Compression Stockings See Instructions, # 1 each, Maintenance, surgical, thigh length 40-50 mm Hg. Wear in AM and Off at Bedtime. DX Bilateral leg edema, 02/13/21 9:42:00 AM EDT, Supply Start Date: 02/13/21 Status: Ordered Quantity: 1.0 Unit: each Repeat number: 1 Indication: Localized edema CPAP Machine See Instructions, # 1 each, Maintenance, auto-CPAP 8 to 14 cm H2O w heated humidifier, compliance data capabilities and following residual AHI. dx aditya [id number], 12/12/16 1:18:16 PM EDT Start Date: 12/12/16 Status: Ordered Quantity: 1.0 Unit: each Repeat number: 1 CPAP Equipment See Instructions, # 1 each, Refills 11, Tot. Refills 11, Maintenance, Replacement CPAP-auto cpap 8-14cm h20 w heated humidifier, compliance data capabilities and following residual AHI. nasal pillow,tubing, filters, head gear, heated tubing, chin strap dx aditya [id number], 11/08/21 11:35:00 AM EDT, Compound Start Date: 11/08/21 Status: Ordered Quantity: 1.0 Unit: each Repeat number: 12 DEPENDS UNDERWEAR FOR WOMEN DEPENDS UNDERWEAR FOR WOMEN, See Instructions, # 60 each, Refills 11, Tot. Refills 11, Maintenance,USE TWICE DAILY, ADULT EXTRA LARGE, MAXIMUM ABSORBANCY, MARILU 99, DX URINARY INCONTINENCE, MORBID OBESITY, 09/25/23 11:31:00 AM EDT, Supply Start Date: 09/25/23 Status: Ordered Quantity: 60.0 Unit: each Repeat number: 12 ferrous sulfate 325 mg oral enteric coated tablet 325 mg, 1, tablet, By Mouth, Daily, # 90 tablet, Refills 1, Tot. Refills 1, Maintenance, 04/12/24 3:23:00 PM EDT, Route to Pharmacy Electronically, [facility]/pharmacy #[id number], Partial fill upon patient request if the prescription is for a schedule II opioid drug., 162.5, cm, 04/06/24 12:35:00 EDT, Height Start Date: 04/12/24 Status: Ordered Quantity: 90.0 Unit: tablet Repeat number: 2 Fosamax 70 mg oral tablet 1 tablet = 70 mg, By Mouth, Every week, # 12 tablet, 3 Refills, Maintenance, 08/26/23 11:44:00 AM EST, Tablet, [facility]/pharmacy #[id number], Partial fill upon patient request if the prescription is for a schedule II opioid drug., 162.5, cm, 08/26/23 10:56:00 EST, Height Start Date: 08/26/23 Status: Ordered Quantity: 12.0 Unit: tablet Repeat number: 4 Indication: Age-related osteoporosis without current pathological fracture gabapentin 100 mg oral capsule 100 mg, 1, capsule, By Mouth, 3 times a day, # 90 capsule, Refills 5, Tot. Refills 5, Maintenance, 11/27/23 4:40:00 PM EDT, Route to Pharmacy Electronically, [facility]/pharmacy #[id number], Partial fill upon patient request if the prescription is for a schedule II opioid drug., 162.5, cm, 09/25/23 11:20:00 EDT, Height Start Date: 11/27/23 Status: Ordered Quantity: 90.0 Unit: capsule Repeat number: 6 Indication: Other intervertebral disc degeneration, lumbar region hydrochlorothiazide 25 mg oral tablet 1, tablet, By Mouth, Daily, # 90 tablet, Refills 1, Maintenance, 05/20/24 11:28:00 AM EST, Route toPharmacy Electronically, [id number], 162.5, cm, 04/06/24 12:35:00 EDT, Height Start Date: 05/20/24 Status: Ordered Quantity: 90.0 Unit: tablet Repeat number: 1 NEBULIZER SUPPLIES NEBULIZER SUPPLIES, See Instructions, # 1 each, Refills 11, Tot. Refills 11, Maintenance, USE DIRECTED oxygen tubing, adapter, mouth piece, flex tube. DX- J45.909. length of need-lifetime. APRIA [id number], 11/08/21 11:35:00 AM EDT, Compound Start Date: 11/08/21 Status: Ordered Quantity: 1.0 Unit: each Repeat number: 12 Nebulizer/Compressor See Instructions, # 1 each, Maintenance, USE DIRECTED, DX J45.909 length of need-lifetime. [id number], 06/05/21 2:35:00 PM EST, Compound Start Date: 06/05/21 Status: Ordered Quantity: 1.0 Unit: each Repeat number: 1 Ozempic (1 mg dose) 4 mg/3 mL subcutaneous solution = 1 mg, Subcutaneous Injection, Every week, # 3 mL, 5 Refills, Maintenance, 04/06/24 12:23:00 PM EDT, Solution, [facility]/pharmacy #[id number], Partial fill upon patient request if the prescription is for a schedule II opioid drug., 162.5, cm, 04/06/24 12:01:00 EDT, Height Start Date: 04/06/24 Status: Ordered Quantity: 3.0 Unit: mL Repeat number: 6 Singulair 10 mg oral tablet 10 mg, 1, tablet, By Mouth, Daily at bedtime, # 90 tablet, Refills 1, Tot. Refills 1, Maintenance, 06/04/21 3:00:00 PM EST, Route to Pharmacy Electronically, [facility]/pharmacy #[id number], 161.9, cm, 06/04/21 14:30:00 EST, Height, 130.1, kg, 01/28/21 23:17:00 EDT, Dry Weight Start Date: 06/04/21 Stop Date: 12/01/21 Status: Ordered Quantity: 90.0 Unit: tablet Repeat number: 2 Problem List Condition Confirmation Course Effective Dates Status H ealth Status Informant Asthma Confirmed 2005 Active Cervical radiculopathy Confirmed 2007 Active Constipation Confirmed Active Lumbar degenerative disc disease Confirmed Active Dyslipidemia Confirmed Active GERD - Gastro-esophageal reflux disease Confirmed Active HTN (hypertension) Confirmed Active Iron deficiency anemia Confirmed Active ADITYA - Obstructive sleep apnea repeat PSG 10/16/16 Confirmed 2009 Active Osteopenia Confirmed Active Osteoporosis Confirmed Active Bilateral primary osteoarthritis of knee Confirmed Active Severe obesity Confirmed Active Type 2 diabetes mellitus Confirmed Active Urge urinary incontinence Confirmed Active Social History Social History Type Response Smoking Status Never smoker entered on: 01/09/15 Sex Female Sex Representation Female (finding) Patient Care team information Care Team Personnel Name: Melanie Salguero MD Position: [facility] Physician - Primary Care Member Role: PCP Address: [address] [place] [id number] Telecom: Care Team Related Persons Name: DARSHAN GARCÍA Name: IAN SHARPE Insurance Providers Guarantor name: JACOB SHARPE Health Plan Information #: 1 Payer: [employer] MED[employer] ADV HMO Member Number: NA Policy Number: NA Group Number: NA Health Plan Information #: 2 Payer: [employer] M[employer] A ONLY Member Number: NA Policy Number: NA Group Number: NA
--- OUTSIDE RECORDS SUMMARY | 2024-07-25 12:16 | XMS_ITS | Clinical Summary ---
Author Organization [facility] Address [address] [place] [address] Care Team Providers Care Assistant Attorney General Name Role Phone Melanie Salguero MD Primary Care Provider Allergies Active Allergy Reactions Criticality Noted Date Comments Metformin Diarrhea Low 12/15/2023 Other reaction(s): diarrhea Medications Medication Sig Dispensed Refills Start Date End Date Status albuterol (PROVENTIL) (2.5 MG/3ML) 0.083% nebulizer solution INHALE 1 VIAL BY NEB EVERY 6 HOURS NEEDED FOR WHEEZE OR FOR SHORTNESS OF BREATH 0 07/26/2021 Active hydroCHLOROthiazide (HYDRODIURIL) tablet 25 mg Take 1 tablet (25 mg total) by mouth daily. 0 08/24/2021 Active montelukast (SINGULAIR) 10 MG tablet Take 1 tablet (10 mg total) by mouth every night at bedtime. 0 08/31/2021 Active albuterol (ProAir HFA) 108 (90 Base) MCG/ACT inhaler Inhale 2 puffs into the lungs every 6 (six) hours as needed for wheezing. 0 Active ipratropium-albuterol (Combivent Respimat) 20-100 MCG/ACT inhaler Inhale 1 puff into the lungs 4 (four) times a day as needed. 0 06/02/2022 Active Cholecalciferol 25 MCG (1000 UT) tablet Take 5 capsules by mouth every 7 days. For 12 weeks, pt thinks this is 50,000 IU once per week. Takes on thursday 0 Active alendronate (FOSAMAX) tablet 70 mg Take 1 tablet (70 mg total) by mouth once a week. 0 08/26/2023 Active Ozempic, 0.25 or 0.5 MG/DOSE, 2 MG/3ML SOPN Thursday 0 11/13/2023 Ac tive linaCLOtide (LINZESS PO) Take 290 mcg by mouth daily. 0 Active gabapentin (NEURONTIN) 100 MG capsule Take 1 capsule (100 mg total) by mouth 3 (three) times a day. 0 Active acetaminophen (TYLENOL EXTRA STRENGTH) 500 MG tablet Take 2 tablets (1,000 mg total) by mouth every 8 (eight) hours as needed for pain. 60 tablet 0 01/12/2024 Active HYDROmorphone (DILAUDID) 2 MG tablet Take 1 tablet (2 mg total) by mouth every 4 (four) hours as needed for pain. 40 tablet 0 01/12/2024 Active methocarbamol (ROBAXIN) 750 MG tablet Take 1 tablet (750 mg total) by mouth every 6 (six) hours as needed (muscle spasm). 40 tablet 0 01/12/2024 Active senna-docusate (PERICOLACE) 8.6-50 MG Take 1 tablet by mouth 2 (two) times a day. 30 tablet 0 01/12/2024 Active ondansetron (ZOFRAN-ODT) 4 MG disintegrating tablet Take 1 tablet (4 mg total) by mouth every 8 (eight) hours as needed for nausea. 20 tablet 0 01/12/2024 Active Active Problems Problem Noted Date Diagnosed Date Osteoarthritis of left knee 01/11/2024 Hypertension Hyperlipidemia Sleep apnea, obstructive Anemia Overview: iron transfusion weekly in 2103 Asthma GERD (gastroesophageal reflux disease) Osteoporosis Prediabetes Chronic constipation Urinary incontinence Peripheral neuropathy Overview: hands Immunizations Name Administration Dates Next Due Covid-19 (Moderna 12+) 100mcg/0.5mL dosage 07/19,06/21/2021 Family History Medical History Relation Name Comments Diabetes Brother 1 Drug abuse Brother 1 Kidney disease Brother 1 HIV Brother 2 ava No Sig Med Hx Brother 3 tera Alcohol abuse Father Asthma [...] Date Smoking Tobacco: Never Smokeless Tobacco: Never Tobacco Cessation:Counseling Given: Not Answered Alcohol Use Standard Drinks/Week Comments Never 0 (1 standard drink = 0.6 oz pur e alcohol) Sex and Gender Information Value Date Recorded Sex Assigned at Female 12/09/2021 4:41 PM EDT Gender Identity Female 12/09/2021 4:41 PM EDT Sexual Orientation Straight 12/16/2021 7: 54 AM EDT Job Start Date Occupation Industry Not on file Not on file Not on file Last Filed Vital Signs Vital Sign Reading Time Taken Comments Blood Pressure 127/67 01/13/2024 8:03 AM EDT Pulse 66 01/13/2024 8:03 AM EDT Temperature 36.5 ??C (97.7 ??F) 01/13/2024 8:03 AM ED T Respiratory Rate 16 01/13/2024 8:03 AM EDT Oxygen Saturation 96% 01/13/2024 8:03 AM EDT Inhaled Oxygen Concentration - - Weight 113.4 kg (250 lb) 01/11/2024 9:42 AM EDT Height 165.1 cm (5' 5 ) 01/11/2024 9:42 AM EDT Body Mass Index 41.6 01/11/2024 9:42 AM EDT Plan of Treatment Health Maintenance Due Date Last Done Comments Hepatitis C Screening 1957 Depression Screening 1969 BMI Counseling 1975 Preventative Health Evaluation 1975 Colon Cancer Screening (Colonoscopy) 2002 DTap / Tdap / Td (1 - Tdap) 07/26/2002 07/25/2002 Breast Cancer Screening (Mammogram) 2007 Shingrix-Zoster Vaccine (1 o f 2) 2007 Pneumococcal Vaccine (2 of 2 - PCV) 03/08/2011 03/08/2010 RSV Adult > 60+ Yrs or (1 - Risk 60-74 years 1-dose series) 2017 Fall Risk Assessment 2022 Osteoporosis Screening (DEXA Scan) 2022 COVID-19 Vaccine (3 2023-2 5 season) 2024 07/19/2021, 06/21/2021 Influenza Vaccine (#1) 2024 4, 06/20/2013, 03/08/2010 Hepatitis B Vaccines Aged Out No long er eligible based on patient's age to complete this topic RSV Ped < 20 months Aged Out No longe r eligible based on patient's age to complete this topic Medical Devices Implanted Type Area Powder Worker Tnt Device Identifier Shelf Expiration Date Model / Serial / Lot Knee Fem Bsplt W Pa Stry-Howm [id number] - [id number] Implanted:Qty: 1 on 12/16/2021 by Rupesh Tai MD at [facility] Right: Knee [employer] [id number] 09/01/2026 5517-F-402 / / [id number] Knee Bsplt Triathlon Ti Sz 4 Stry-HowIncap [id number] - [id number] Implanted:Qty: 1 on 12/16/2021 by Rupesh Tai MD at [facility] Right: Knee [employer] [id number] 10/11/2026 5536-B-400 / / [id number] Knee Tib Insrt Cr-X3 [id number] Stry-Howm [id number] - [id number] Implanted:Qty: 1 on 12/16/2021 by Rupesh Tai MD at [facility] Right: Knee [employer] [id number] 05/29/2026 5530-G-411 / / [id number] Knee Bsplt Triathlon Ti Sz 3 Stry-Howm [id number] 551 - [id number] Implanted:Qty: 1 on 01/11/2024 by Rupesh Tai MD at [facility] Left: Knee [employer] [id number] 07/27/2028 5536-B-300 / / [id number] Tibial Bearing Insert Cr 10mm Stry-Howm [id number] - [id number] Implanted:Qty: 1 on 01/11/2024 by Rupesh Tai MD at [facility] Left: Knee [employer] [id number] 03/15/2028 5530-G-310 -E / / [id number] Knee Fem Bsplt W Pa Stry-Howm [id number] - [id number] Implanted:Qty: 1 on 01/11/2024 by Rupesh Tai MD at [facility] Left: Knee [employer] [id number] 10/15/2028 5517-F-301 / / [id number] Explanted Type Area Powder Worker Tnt Device Identifier Shelf Expiration Date Model / Serial / Lot Knee Tib Insrt Cr-X3 [id number] [employer]-How [id number] - [id number] Explanted:Qty: 1 on 12/16/2021 at [facility] Right: Knee [employer] [id number] 05/18/2023 5530-G-409 / / [id number] Advance Directives For more information, please contact: [phone] Latest Code Status on File Code Status Date Activated Date Inactivated Comments Full Code 01/11/2024 9:33 AM 01/13/2024 11:24 PM This code status was ascertained in the following way: discussion with patient . Code Status History Code Status Date Activated Date Inactivated Comments Full Code 01/11/2024 7:02 AM 01/11/2024 9:33 AM This code status was ascertained in the following way: discussion with healthcare licensing representative . Full Code 12/16/2021 11:19 AM 12/19/2021 12:34 AM Thi s code status was ascertained in the following way: per living will or healthcare instructions . Full Code 12/16/2021 6:32 AM 12/16/2021 11:19 AM This code status was ascertained in the following way: discussion with patient . Care Teams Assistant Attorney General Relationship Specialty Start Date End Date Melanie Salguero MD [address] [place] [address] PCP - General Internal Medicine 08/26/21
== END 2024-07-25 11:35 | disposition home or self-care (01) ==
PROVIDERS: PCP Internal Medicine; Visit Provider Hospitalist
DX: R05.3 Chronic cough (principal); G47.33 Obstructive sleep apnea (adult) (pediatric); J45.40 Moderate persistent asthma, uncomplicated; J44.89 Other specified chronic obstructive pulmonary disease
CPT/HCPCS: 99214

== ENCOUNTER → 2024-07-25 11:04 | Outpatient (BNVA) | payer MEDICARE, OTHER, SELFPAY | PROVIDERS: PCP Internal Medicine; Visit Provider Hospitalist | DX: G47.33 Obstructive sleep apnea (adult) (pediatric) (principal); J44.89 Other specified chronic obstructive pulmonary disease; J45.40 Moderate persistent asthma, uncomplicated; R05.3 Chronic cough | CPT/HCPCS: 99212 ==

== ENCOUNTER → 2025-03-20 14:02 | Outpatient (REF) | payer MEDICARE, OTHER, SELFPAY ==
--- OUTSIDE RECORDS SUMMARY | 2025-03-20 15:52 | XMS_ITS | Clinical Summary ---
Author Organization [facility] Address [facility] [address] [place] [phone] Phone Care Team Providers Care Industrial Production Manager Name Role Phone Melanie Salguero MD Primary Care Provider Allergies No known active allergies Medications hydroCHLOROthia zide (HYDRODIURIL) 25 MG tablet Take 25 mg by mouth daily. Active montelukast (SINGULAIR) 10 mg tablet Take 10 mg by mouth nightly at bedtime. Active albuterol (ACCUNEB) 0.63 mg/3 mL nebulizer solution Take 1 ampule by nebulization every 6 (six) hours as needed for wheezing. Active albuterol 90 mcg/actuation inhaler Inhale 2 puffs into the lungs every 6 (six) hours as needed for wheezing. Active naproxen (NAPROSYN) 250 MG tablet Take 250 mg by mouth 2 (two) times a day with meals. Active Active Problems No known active problems Social History Tobacco Use Types Packs/Day Years Used Date Smoking Tobacco: Never Assessed Education Answer Date Recorded Are you interested in more education? Not on adenike e 10/17/2022 Are you concerned about learning? Not on file 10/17/2022 No 10/17/2022 No 10/17/2022 Digital Access Answer Date Recorded No 11/15/2022 No 11/15/2022 Reliable internet access at home? Not on file 11/15/2022 Device with a working camera? Not on file Comments Unknown Sex and Gender Information Value Date Recorded Sex Assigned at Female 09/26/2020 3:43 PM EDT Legal Sex Female 3:35 PM EDT Gender Identity Female 09/26/2020 3:43 PM EDT Sexual Orientation Straight 09/26/2020 3: 43 PM EDT Last Filed Vital Signs Vital Sign Reading Time Taken Comments Blood Pressure - - Pulse - - Temperature 35.6 C (96 F) 10/04/2020 9:12 AM EDT Respiratory Rate - - Oxygen Saturation - - Inhaled Oxygen Concentration - - Weight 123.4 kg (272 lb) 10/04/2020 9:12 AM EDT Height 165.1 cm (5' 5 ) 10/04/2020 9:12 AM EDT Body Mass Index 45.26 10/04/2020 9:12 AM EDT Plan of Treatment Health Maintenance Due Date Last Done Comments Adult Td,Tdap Booster 1957 LIPID PANEL 1957 POTASSIUM LEVEL 1957 DEPRESSION SCREENING 1969 SMOKING Hx and SMOKELESS TOB ACCO SCREENING 1970 HEPATITIS C SCREENING 1975 MAMMOGRAM 1997 COLOGUARD 2002 COLONOSCOPY 2002 COLORECTAL CANCER SCREENING 2002 FIT TEST 2002 FOBT 2002 SIGMOIDOSCOPY 2002 VIRTUAL COLONOSCOPY 2002 PNEUMOCOCCAL VACCINES (50+ y ears) (1 of 1 - PCV) 2007 ZOSTER VACCINES (1 of 2) 2007 OSTEOPOROSIS SCREENING INITI AL (ONE-TIME) 2022 INFLUENZA VACCINE (#1) 2025 COVID-19 VACCINE (2 - 2024-2 6 season) 2025 06/21/2021 RSV VACCINE (1 - 1-dose 75+ series) 2032 HEPATITIS A VACCINES Aged Out No long er eligible based on patient's age to complete this topic HIB VACCINES Aged Out No longer eligi ble based on patient's age to complete this topic MENINGOCOCCAL VACCINES (ACWY) Aged Out No longer eligible based on patient's age to complete this topic MENINGOCOCCAL VACCINES (B) Aged Out N o longer eligible based on patient's age to complete this topic Medical Devices Not on file Insurance BLUE CROSS OUT OF STATE O BLUE CROSS OUT OF [facility] BLUE CROSS OUT OF [facility] BLUE CROSS OUT OF STATE O BLUE CROSS OUT OF [facility] BLUE CROSS OUT OF [facility] BLUE CROSS OUT OF STATE O BLUE CROSS OUT OF STATE O BLUE CROSS OUT OF STATE O Care Teams Industrial Production Manager Relationship Specialty Start Date End Date Melanie Salguero MD [address] [place] [id number] PCP - General 09/26/20 Additional Source Comments The information contained in this document represents components of the legal health record. It is not the complete legal health record.[facility]
--- OUTSIDE RECORDS SUMMARY | 2025-03-20 15:52 | XMS_ITS | Clinical Summary ---
Author Organization [facility] Address [address] [place] [address] Care Team Providers Care Well Puller Name Role Phone Melanie Meade MD Primary [...] DX:Periphe ral neuropathy;COMMENT:hands Diabetes mellitus, type II ( CMS/HCC V24, CMS/HCC V28) DX:Diabetes mellitus, type I I (HCC);COMMENT:per patient History of colon polyps DX:Histo [...] drink = 0.6 oz pur e alcohol) Comments Unknown Sex and Gender Information Value Date Recorded Sex Assigned at Not on file Legal Sex Female 6:37 AM EST Gender Identity Not on file Sexual Orientation [...] Vaccines (1 of 2) 2007 Pneumococcal Vaccine: 50+ Years (2 of 2 - PCV) 03/08/2011 03/08/2010 RSV Immunization Adult Patients (1 - Risk 60-74 years 1-dose series) 2017 Cholesterol Screening (Lipid Panel) 05/29/2022 Falls Risk Assessment 05/29/2022 Hepatitis C Screening 05/29/2022 Osteoporosis Screening (Bone Density Screening) 05/29/2022 Social Influencers of Health Screening 05/29/2022 Breast Cancer Screening 10/05/2023 10/05/19, 03/26/2020, 01/17/2019 Diabetes: Annual Urine Albumin-Creatinine Ratio (uACR) 05/31/2024 Diabetes: Blood Sugar Contro l Test (HGBA1C) 06/16/2024 12/16/2023, 12/16/2023 Depression Screening 06/22/2024 Colorectal Cancer Screening: FIT-DNA (Cologuard) 07/17/2024 07/17/2021, 07/17/2021 Diabetes: Annual GFR (Glomerular Filtration Rate) 12/15/2024 12/16/2023, 12/16/2023, 05/29/2017 Hypertension/CHF/CAD Annual BMP Blood Test 12/15/2024 12/16/2023, 12/16/2023, 05/29/2017 COVID-19 Vaccine (3 - 2024-2 6 season) 2025 07/19/2021, 06/21/2021 Influenza Vaccine (#1) 2025 4, 06/20/2013, 03/08/2010 DTaP,Tdap,and Td Vaccines (4 - Td or [...] patient's age to complete this topic Meningococcal B Vaccine Aged Out No l onger eligible based on patient's age to complete this topic RSV Immunization Patients Under 20 months Aged Out No longer eligible b ased on patient's age to complete this topic Varicella Vaccines Aged Out No longer eligible based on patient's age to complete this topic Medical Devices Implanted Type Area Patient Care Assistant Device Identifier Shelf Expiration Date Model / Serial / Lot Knee Fem Bsplt W Pa [facility] [id number] Implanted:Qty: 1 on 12/16/2021 by Rupesh Tai MD Right: Knee [employer] [id number] 09/01/2026 5517-F-402 / / [id number] Knee Bsplt Triathlon Ti Sz 4 Stry-Howm [id number] Implanted:Qty: 1 on 12/16/2021 by Rupesh Tai MD Right: Knee [employer] [id number] 10/11/2026 5536-B-400 / / [id number] Knee Tib Insrt Cr-X3 [id number] Stry-Howm [id number] Implanted:Qty: 1 on 12/16/2021 by Rupesh Tai MD Right: Knee [employer] [id number] 05/29/2026 5530-G-411 / / [id number] Knee Bsplt Triathlon Ti Sz 3 Stry-Howm [id number] Implanted:Qty: 1 on 01/11/2024 by Rupesh Tai MD Left: Knee [employer] [id number] 07/27/2028 5536-B-300 / / [id number] Tibial Bearing Insert Cr 10mm Stry-Howm [id number] Implanted:Qty: 1 on 01/11/2024 by Rupesh Tai MD Left: Knee [employer] [id number] 03/15/2028 5530-G-310 -E / / [id number] Knee Fem Bsplt W Pa Stry-Howm [id number] Implanted:Qty: 1 on 01/11/2024 by Rupesh Tai MD Left: Knee [employer] [id number] 10/15/2028 5517-F-301 / / [id number] Procedures Procedure Name Priority Date/Time Associated Diagnosis Comments [facility] SCREENING DIGITAL Routine 10/04/2021 8:52 AM EDT Encounter for screening mammogram for malignant neoplasm of breast from Last 3 Months or Most Recently Relevant to Health Maintenance Results * [facility] SCREENING DIGITAL (10/04/2021 8:52 AM EDT) Anatomical Region Laterality Modality Mammography 10/04/2021 8:02 AM EDT Narrative 10/04/2021 8:52 AM EDT [facility] Diagnostic Imaging Department [address] [place] [id number] Patient: ANNEMARIEJACOBBEN Nath D.O.B./Age/Sex: 1955 - 66 - F Unit#: [id number] Location/Status: SPDIMAM/REG CLI Mnemonic/Ordering Site: [facility] Ordering Physician: MELANIE MEADE MD [facility] Screening Digital - 10/04/21 0824 EXAM: [facility] Screening Digital EXAM DATE AND TIME: 10/04/2021 8:25 AM HISTORY: Screening. Sister had breast carcinoma at age 63. COMPARISON: 03/26/20, 01/17/19, 12/28/14 TECHNIQUE: CC and MLO views of both breasts were obtained using full field digital mammography. Bilateral digital breast tomosynthesis was performed in the MLO projection. Computer aided detection with the CashEdge 7.2-H was employed. TISSUE DENSITY: a. The breasts [...] Routine screening mammogram BILATERAL in 1 year. [address]191, 27534 3342F, 7025F Dictating Physician: RERE MARTIN MD Electronically Signed by: RERE MARTIN MD Dic Date/Time: 10/04/21850 Sign date/Time: 10/04/21851 Procedure Note Rere Martin MD - 06/11/2022 [facility] Diagnostic Imaging Department [address] [place] [address] Patient: SHARPEJACOB./Age/Sex: 1955 - 66 - F Unit#: [id number] Location/Status: [facility] Mnemonic/Ordering Site: [facility] Ordering Physician: MELANIE MEADE MD [facility] Screening Digital - 10/04/21823 EXAM: [facility] Screening Digital EXAM DATE AND TIME: 10/04/2021 8:25 AM HISTORY: Screening. Sister had breast carcinoma at age 63. COMPARISON: 03/26/20, 01/17/19, 12/28/14 TECHNIQUE: CC and MLO views of both breasts were obtained using fullfield digital mammography. Bilateral digital breast tomosynthesis was performedin the MLO projection. Computer aided detection with the Cash[employer] 7.2-Hwas employed. TISSUE DENSITY: a. The breasts [...] Routine screening mammogram BILATERAL in 1 year. 42064, 83282 3342F, 7025F Dictating Physician: RERE MARTIN MD Electronically Signed by: RERE MARTIN MD Dic Date/Time: 10/04/21850 Sign date/Time: 10/04/21851 Melanie Meade MD IMG BI PROCEDURES Final Result from Last 3 Months or Most Recently Relevant to Health Maintenance Care Teams Well Puller Relationship Specialty Start Date End Date Melanie Meade MD [address] [place] [id number] PCP - General Internal Medicine 02/13/21
--- OUTSIDE RECORDS SUMMARY | 2025-03-20 15:52 | XMS_ITS | Clinical Summary ---
Author Organization [address] Address [address] [place] [id number] Care Team Providers Care Patient Liaison Name Role Phone No, Pcp (Do Not Change Name) Primary Care Provid er Unavailable Allergies Active Allergy Reactions Criticality Noted Date Comments Metformin Diarrhea Low 12/15/2023 Other reaction(s): diarrhea Medications albuterol sulfate 90 mcg/actuation HFA aerosol inhaler USE 2 PUFFS INHALATION EVERY 4 HOURS,: NEEDED FOR WHEEZE OR FOR SHORTNESS OF BREATH Active albuterol (PROVENTIL, VENTOLIN) 2.5 mg /3 mL (0.083 %) nebulizer solution 1 VIALS INHALATION EVERY 6 HOURS NEEDED FOR WHEEZE OR FOR SHORTNESS OF BREATH Active alendronate (FOSAMAX) 70 mg tablet Take 1 tablet (70 mg total) by mouth. 5 Active atenoloL (TENORMIN) 25 mg tablet Take 1 tablet (25 mg total) by mouth. 5 Active fluticasone propion-salmete roL (ADVAIR HFA) 115-21 mcg/actuation inhaler 2 PUFF INHALED EVERY 12 HOURS FOR 30 DAYS Active hydroCHLOROthia zide (HYDRODIURIL) 25 mg tablet Take 1 tablet (25 mg total) by mouth daily. Active methIMAzole (TAPAZOLE) 10 mg tablet Take 1 tablet (10 mg total) by mouth. 5 Active OZEMPIC 2 mg/dose (8 mg/3 mL) pen injector 2 MG SUBCUTANEOUS INJECTION EVERY WEEK,INSTR:IN THE ABDOMEN, THIGH, OR UPPER ARM Active SPIRIVA RESPIMAT 2.5 mcg/actuation mist for inhalation 2 PUFF INHALED DAILY FOR 30 DAYS 5 Active predniSONE (DELTASONE) 10 mg tablet PLEASE SEE ATTACHED FOR DETAILED DIRECTIONS Active lidocaine (LIDODERM) 5 %Indications:Ac [place] sciatica Place 1 patch over 12 hours onto the skin every 24 hours. Remove & Discard patch within 12 hours or as directed by MD Sanchez patch 2 Active Additional Information Patient not taking.Reported on 11/30/2024 naproxen (NAPROSYN) 500 mg tabletIndicatio ns:Acute sciatica Take 1 tablet (500 mg total) by mouth 2 (two) times daily with breakfast and dinner. 20 tablet 11 Active montelukast (SINGULAIR) 10 mg tablet Take 1 tablet (10 mg total) by mouth daily. Active naproxen (NAPROSYN) 500 mg tabletIndicatio ns:Torticollis, acute Take 1 tablet (500 mg total) by mouth 2 (two) times daily with breakfast and dinner. 20 tablet 1 Active methocarbamoL (ROBAXIN) 500 mg tabletIndicatio ns:Torticollis, acute Take 1 tablet (500 mg total) by mouth 3 (three) times daily. 30 tablet Active Family History Relation Name Status Comments Father Mother Social History Tobacco Use Types Packs/Day Years Used Date Smoking Tobacco: Never Smokeless Tobacco: Never Tobacco Cessation:Counseling Given: Not Answered Alcohol Use Standard Drinks/Week Comments Never 0 (1 standard drink = 0.6 oz pur e alcohol) Comments No Sex and Gender Information Value Date Recorded Sex Assigned at Not on file Legal Sex Female 7:09 AM EDT Gender Identity Not on file Sexual Orientation Not on file Last Filed Vital Signs Vital Sign Reading Time Taken Comments Blood Pressure 114/80 11/30/2024 8:52 AM EDT Pulse 70 11/30/2024 8:52 AM EDT Temperature 36.5 C (97.7 F) 11/30/2024 8:52 AM EDT Respiratory Rate 20 11/30/2024 8:52 AM EDT Oxygen Saturation 100% 11/30/2024 8:52 AM EDT Inhaled Oxygen Concentration - - Weight 104.3 kg (230 lb) 11/30/2024 8:52 AM EDT Height 165.1 cm (5' 5 ) 11/30/2024 8:52 AM EDT Body Mass Index 38.27 11/30/2024 8:52 AM EDT Plan of Treatment Health Maintenance Due Date Last Done Comments HIV screening 1970 Hepatitis C screening 1975 Prediabetes Surveillance 1975 Breast cancer screening 1997 Lipid disorder screening 1997 Colon cancer screening, Colonoscopy 2002 Diabetes screening 2002 Shingles vaccine (Shingrix) (1 of 2 - Shingrix (RZV) 2 Dose Standard Series) 2007 Pneumococcal Vaccine (50+ years) (2 of 2 - PCV) 03/08/2011 03/08/2010 Osteoporosis screening (bone density) 2022 Influenza vaccine 01/20/2025 05/04/2014, 06/20/2013, 03/08/2010 Covid-19 vaccine series ( - season) 2025 07/19/2021, 06/21/2021 RSV Immunization (1 - 1-dose 75+ series) 2032 Tetanus adult (Td q 10,TDAP once) 08/25/2033 08/26/2023, 02/06/2012, 07/25/2002 Cervical cancer screening Discontinued Meningococcal B Vaccine Aged Out No l onger eligible based on patient's age to complete this topic Meningococcal Vaccine Aged Out No mario jenni eligible based on patient's age to complete this topic Insurance [facility] [employer] [facility] [employer] [facility] [employer] Care Teams Patient Liaison Relationship Specialty Start Date End Date No, Pcp (Do Not Change Name) PCP - General 10/25/24
--- OUTSIDE RECORDS SUMMARY | 2025-03-20 15:52 | XMS_ITS | Data Portability ---
Author Organization [place] [facility] Satnam Albarran AONE Pierpont Address [address] [place] [address] Care Team Providers Care Plaster Molder Name Role Phone MAGO SHEN Primary Care Provider Assessment Encounter Date Assessment Date Assessment LastModified by Organization Details LastModified Time 02/23/2024 02/23/2024 HPI : Patient is here [...] available 03/29/2024 13:47:29 04/22/2024 04/22/2024 The above findings are discussed in detail today with the [...] for arthritis. Treatment options include activity modification, anti-inflammator ies, ice or heat. I will send in a prescription for diclofenac cream which she can try as well as Aleve or other NSAIDs. She will continue with activities as tolerated. For deep venous tenosynovitis, pathology expected prognosis were discussed. Treatment options include activity modification, bracing, anti-inflammator ies, consideration for steroid injection, or surgery. She would like to start with the brace and anti-inflammator ies which I will provide her today. She will return to see me if her symptoms recur or worsen. All of her questions were answered, she is in agreement with plan [email or web address] Not available 04/22/2024 12:25:25 05/27/2024 05/27/2024 The above findings were discussed in detail today with patient. She continues to have symptoms of left Dequervain's tenosynovitis which is symptomatic for her. Treatment options include continued nonoperative treatment in the form of activity modification, bracing, anti-inflammator ies, or considering a cortisone injection. She like [...] continue to wear her brace and take anti-inflammator ies and ice as needed until the injection starts to work. After that she can wean out of the brace and increase activities as tolerated. She will follow-up with me as needed if symptoms recur or do not improve in 6 weeks. [email or web address] Not available 05/30/2024 16:17:40 09/29/2024 09/29/2024 The above findings were discussed in detail today with patient. She continues to have symptoms of left Dequervain's tenosynovitis which is symptomatic for her. Treatment options include continued nonoperative treatment in the form of activity modification, bracing, anti-inflammator ies, or considering a cortisone injection. She like [...] continue to wear her brace and take anti-inflammator ies and ice as needed until the injection starts to work. After that she can wean out of the brace and increase activities as tolerated. She may follow-up with a hand team in 6 weeks for repeat evaluation and consideration regarding a right trigger finger injection at that time. [email or web address] Not available 09/29/2024 14:32:14 Plan of Treatment Reminders Order Date Submit Date Provider Last Modified By Organization Details Last Modified Time Details Appointments None recorded . Lab None recorded . Referral None recorded . Procedures None recorded . Surgeries None recorded . Imaging XR, wrist, 3 or more view 2023 024 [email or web address] [facility], [address], [place], [address], 13:17:46 XR, wrist, 3 or more view 2023 024 [email or web address] [facility], [address], [address], [place], [address], 4 13:17:46 Medication Orders lidocain e (PF) 10 mg/mL (1 %) injectio n solution 2024 025 [email or web address] Not available 5 08:40:43 triamcin olone acetonid e 40 mg/mL suspensi on for injectio n 2024 025 [email or web address] Not available 5 08:40:43 lidocain e (PF) 10 mg/mL (1 %) injectio n solution 2023 024 [email or web address] Not available 4 11:49:48 triamcin olone acetonid e 40 mg/mL suspensi on for injectio n 2023 024 [email or web address] Not available 4 11:49:48 diclofen ac 1 % topical gel 2023 025 [id number], [address] [place], [address], 5 14:12:05 Patient TargetsNo targets recorded. Patient Instructions Encounter Date Encounter Id Patient Instructions Last Modified By Organization Details Last Modified Time 04/22/2024 [id number] views of bilateral wrist were ordered [...] Name and Address Organization Details Recorded Time Acquired trigger finger of right middle finger 32696095733 9105 Active 2022 Ayden Khan MD [address], [place], [address] , [place] [facility] 3 11:23:45 Osteoarth ritis of left knee joint 29634534307 9109 Active 2022 AURA REYES PA-C [address], [place], [address] , [place] [facility] 3 11:04:02 Obstructi ve sleep apnea syndrome 53196822 Active 2023 Sleep apnea, obstructi ve Not Available [facility] 5 23:22:41 Osteoporo sis 99547243 Active 2023 Osteoporo sis Not Available [facility] 5 23:22:42 Gastroeso phageal reflux disease 114113489 Active 2023 GERD (gastroes ophageal reflux disease) Not Available [facility] 5 23:22:43 Hyperlipi demia 61042997 Active 2023 Hyperlipi demia Not Available [facility] 5 23:22:43 Asthma 748640950 Active 2023 Asthma Not Available [facility] 5 23:22:44 Hypertens tere disorder 43222740 Active 2023 Hypertens ion Not Available [facility] 5 23:22:44 Anemia 129856217 Active 2023 Anemia - Overview: Formattin g of this note might be different from the original. iron transfusi on weekly in 2103 Not Available [facility] 5 23:22:45 Urinary incontine nce 569375616 Active 2023 Urinary incontine nce Not Available [facility] 5 23:22:42 Periphera l nerve disease 557557555 Active 2023 Periphera l neuropath y - Overview: Formattin g of this note might be different from the original. 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 Procedures Surgical History Date Name Laterality Status Provider Name and Address Organization Details Recorded Time 09/30/19 25 LES trigger finger/De Quervain's injection completed Pop Jones MD [address] [facility], [place], [address], [place] [facility] 09/29/2024 14:30:55 05/27/20 24 LES trigger finger/De Quervain's injection completed MD [address] [facility], [place], [address], [place] [facility] 05/30/2024 16:16:50 01/11/20 24 TOTAL KNEE ARTHROPLASTY (SURG) completed Macie Hopson [place] [facility] 01/12/2024 09:00:37 10/02/19 24 TOSHIA Knee Injection completed AURA REYES PA-C [address], [place], [address], [place] [facility] 10/02/2023 11:25:23 05/19/20 23 TOSHIA Knee Injection completed AURA REYES PA-C [address], [place], [address], [place] [facility] 05/19/2023 17:01:18 02/27/20 23 TOSHIA Knee Injection completed AURA REYES PA-C [address], [place], [address], [place] [facility] 02/26/2023 11:02:17 12/02/19 23 TOSHIA Knee Injection completed AURA REYES PA-C [address], [place], [address], [place] [facility] 12/01/2022 10:09:03 arthroplasty of knee completed Paula Beckford [facility], [facility] 12/01/2022 09:53:12 delivery completed Paula Beckford [facility] 12/01/2022 09:53:19 Imaging Results None recorded. Procedure Notes None recorded. Medical Equipment None Reported. Allergies Allergen ID Allergen Name Allergen Category Reaction Reaction Severity Criticality Documentation Date Start Date Code Code System Note Provider Name and Address Organization Details Recorded Time 23478 metformin medicatio n Not available Not available Not available 03/14/20252023 6809 RxNorm React ion: Diarr hea, sever ity: Unkno wn;Ot her react ion(s ): diarr hea Not Available [facility] 01:16:15 Medications Name Sig Start Date Stop Date Status Note LastModified by Organization Details LastModified Time methocarbam ol 500 mg tablet TAKE 1 TABLET BY MOUTH 4 TIMES DAILY FOR 10 DAYS. active Not Available Not Available No t Available metformin 500 mg tablet TAKE 1 TABLET BY MOUTH TWICE A DAY 02/22 completed Not Available Not Available Not Available sennosides 8.6 mg tablet Take 1 tablet by mouth 2 (two) times a day for 30 days. 01/18 completed Not Available Not Available Not Available prednisone 10 mg tablet PLEASE SEE ATTACHED FOR DETAILED DIRECTION S active Not Available Not Available No t Available albuterol sulfate 2.5 mg/3 mL (0.083 %) solution for nebulizatio n 1 VIALS INHALATIO N EVERY 6 HOURS NEEDED FOR WHEEZE OR FOR SHORTNESS OF BREATH active Not Available Not Available No t Available azithromyci n 250 mg tablet TAKE 2 TABLETS BY MOUTH TODAY, THEN TAKE 1 TABLET DAILY FOR 4 DAYS 12/03 completed Not Available Not Available Not Available meloxicam 15 mg tablet Take 1 tablet (15 mg total) by mouth daily for 15 days. 03/29 completed Not Available Not Available Not Available bupivacaine HCl 0.5 % (5 mg/mL) injection solution 05/27 completed Not Available Not Available Not Available prednisone 20 mg tablet PLEASE SEE ATTACHED FOR DETAILED DIRECTION S 03/29 completed Not Available Not Available Not Available alendronate 70 mg tablet TAKE 1 TABLET BY MOUTH EVERY WEEK active Not Available Not Available No t Available sennosides 8.6 mg-docusate sodium 50 mg tablet Take 1 tablet by mouth 2 (two) times a day. 2023 active Not Available Not Available Not Avai lable atenolol 25 mg tablet TAKE 1 TABLET BY MOUTH EVERY DAY active Not Available Not Available No t Available phentermine 15 mg capsule Take 15 mg by mouth every morning before breakfast . 12/14 completed Not Available Not Available Not Available aspirin 81 mg tablet,jackie yed release Take 1 tablet (81 mg total) by mouth 2 (two) times a day for 28 days. 01/16 completed Not Available Not Available Not Available acetaminoph en 500 mg tablet Take 2 tablets (1,000 mg total) by mouth every 8 (eight) hours as needed for pain. 2023 active Not Available Not Available Not Avai lable phentermine 30 mg capsule 05/19 completed Not Available Not Available Not Available ondansetron 8 mg disintegrat ing tablet Take 1 tablet (8 mg total) by mouth every 8 (eight) hours as needed for nausea. 12/14 completed Not Available Not Available Not Available hydromorpho ne 2 mg tablet Take 1 tablet (2 mg total) by mouth every 4 (four) hours as needed for pain. 02/22 completed Not Available Not Available Not [...] THREE TIMES A DAY NEEDED FOR COUGH 12/14 completed Not Available Not Available Not Available triamcinolo ne acetonide 40 mg/mL suspension for injection Take 20 mg by injection route. 2024 active Not Available Not Available Not Avai lable pantoprazol e 40 mg tablet,jackie yed release Take 1 tablet (40 mg total) by mouth daily for 28 days. 02/22 completed Not Available Not Available Not Available montelukast 10 mg tablet 1 tablet 12/14 completed Not Available Not Available Not Available hydrochloro thiazide 25 mg tablet TAKE 1 TABLET BY MOUTH EVERY DAY active Not Available Not Available No t Available gabapentin 100 mg capsule Take 1 capsule (100 mg total) by mouth 3 (three) times a day. active Not Available Not Available No t [...] sulfate HFA 90 mcg/actuati on aerosol inhaler Inhale 2 puffs into the lungs every 6 (six) hours as needed for wheezing. active Not Available Not Available No t Available methimazole 10 mg tablet TAKE 1 TABLET BY MOUTH EVERY DAY active Not Available Not Available No t Available ondansetron 4 mg disintegrat ing tablet Take 1 tablet (4 mg total) by mouth every 8 (eight) hours as needed for nausea. 03/29 completed Not Available Not Available Not Available fluticasone propionate 50 mcg/actuati on nasal spray,suspe nsion SPRAY 1 SPRAY BY INTRANASA L ROUTE EVERY DAY FOR 30 DAYS 12/03 completed Not Available Not Available Not Available naproxen 500 mg tablet TAKE 1 TABLET BY MOUTH TWICE A DAY WITH BREAKFAST AND DINNER active Not Available Not Available No t Available amoxicillin 875 mg-leslieiu m clavulanate 125 mg tablet TAKE 1 [...] solution Take 1 mL by injection route. 2024 active Not Available Not Available Not Avai lable lidocaine (PF) 20 mg/mL (2 %) injection solution 01/11 completed Not Available Not Available Not Available fluticasone propionate 115 mcg-salmete rol 21 mcg/actuati on HFA inhaler 2 PUFF INHALED EVERY 12 HOURS FOR 30 DAYS active Not Available Not Available No t Available cholecalcif jailene (vitamin D3) 25 mcg (1,000 unit) tablet Take 5 capsules by mouth every 7 days. For 12 weeks, pt thinks this is 50,000 IU once per week. Takes on thursday active Not Available Not Available No t Available diclofenac 1 % topical gel APPLY 2 GRAMS TO THE AFFECTED AREA(S) BY TOPICAL ROUTE 4 TIMES PER DAY 09/29 completed Not Available Not Available Not Available tranexamic acid 650 mg tablet active Not [...] Available Not Available Not Available Josr Edmond [facility] spacer active Not Available Not Available Not Available Combivent Respimat 20 mcg-100 mcg/actuati on solution for inhalation INHALE 1 PUFFS BY MOUTH 4 TIMES A DAY 09/29 completed Not Available Not Available Not Available Linzess 290 mcg capsule TAKE 1 CAPSULE BY MOUTH EVERY DAY 04/22 completed Not Available Not Available Not Available potassium chloride ER 20 mEq tablet,exte nded release TAKE 1 TABLET BY MOUTH ONCE 02/22 completed Not Available Not Available Not Available Contrave 8 mg-90 mg tablet,exte nded release 2 tablets 12/14 completed Not Available Not Available Not Available Spiriva Respimat 2.5 mcg/actuati on solution for inhalation 2 PUFF INHALED DAILY FOR 30 DAYS active Not Available Not Available No t Available Ozempic 1 mg/dose (4 mg/3 mL) subcutaneou s pen injector INJECT 1 MG SUBCUTANE OUSLY EVERY WEEK active Not Available Not Available No t Available Ozempic 2 mg/dose (8 mg/3 mL) subcutaneou s pen injector 2 MG SUBCUTANE OUS INJECTION EVERY WEEK,INST R:IN THE ABDOMEN, THIGH, OR UPPER ARM active Not Available Not Available No t [...] d Address Organization Details Last Updated DateTime 09/29/[address] [place] [facility] 09/29/2024 14:12:22 Date Recorded Body height Provider Name an d Address Organization Details Last Updated DateTime 02/23/2024 165[address] [place] [facility] 02/23/2024 12:52:12 Date Recorded Body height Provider Name an d Address Organization Details Last Updated DateTime 03/29/2024 165.[address] [place] - [facility] 03/29/2024 13:44:15 Date Recorded Body height Body mass index (BMI) Body weight Provider Name and Address Organization Details Last Updated DateTime 04/22/2024 165.1 cm 38.3 kg/m2 418766.[address] [place] [facility] 04/22/2024 11:20:11 Social History None recorded. Functional Status Question Answer Note LastModified by Organizat ion Details LastModified Time Do you use any illicit or recreational drugs? No Information not available 12/01/2022 Do you or have you ever used any other forms of tobacco or nicotine? No Information not available 12/01/2022 What is your level of alcohol consumption? None Information not available 12/01/2022 Mental Status None recorded. Family History Relationship Description Onset Age of this Age Resolved Age Notes LastModified by Organization Details LastModified Time Father Family history of malignant neoplasm [email or web address] Not available 11/20 09:52:02 Sister Family history of malignant neoplasm [email or web address] Not available 11/20 09:52:02 Sister Diabetes mellitus [email or web address] Not available 11/20 09:52:50 Mother Diabetes mellitus [email or web address] Not available 11/20 09:52:50 Brother Diabetes mellitus [email or web address] Not available 11/20 09:52:50 Medical History Condition Response Gastrointestinal Disease Y Hypertension Y Asthma Y Gynecological HistoryNo gynecological history recorded. Obstetrics History GPAL:G 0 P 0 0 0 0 Immunizations Vaccine Type Date Status Note Provider Nam e and Address Organization Details Recorded Time COVID-19, mRNA, LNP-S, PF, 100 mcg/0.5mL dose or 50 mcg/0.25mL dose 06/21/2021 completed Not Available [facility] 5 06:10:58 COVID-19, mRNA, LNP-S, PF, 100 mcg/0.5mL dose or 50 mcg/0.25mL dose 07/19/2021 completed Not Available [facility] 5 06:10:58 Past Encounters Encounter ID Performer Location Encounter Start Date Encounter Closed Date Diagnosis/Indication Diagnosis SNOMED-CT Code Diagnosis ICD10 Code Diagnosis IMO Codes Diagnosis Note [id number] [place] [address] 12/01/2022 09:20:27 12/01/2022 10:02:15 Osteoarthritis of right knee joint 9593303649 13629 M17.11 [id number] MD RISA Shipley [place] [id number] 12/03/2022 10:42:28 12/03/2022 11:16:10 Pain in finger of right hand 5421365022 47483 M79.644 Acquired t ab initio etl developer finger of right middle finger 7195753769 27418 M65.331 [id number] MARILEE COLLINS [place] [id number] 02/26/2023 09:48:44 02/26/2023 10:57:50 Osteoarthritis of left knee joint 3703788773 68784 M17.12 [id number] MARILEE COLLINS [place] [id number] 05/19/2023 09:58:09 05/19/2023 10:46:46 Osteoarthritis of left knee joint 4716029229 61228 M17.12 [id number] MARILEE GOLDBERG [place] [id number] 06/23/2023 13:54:40 06/23/2023 14:27:57 Osteoarthritis of left knee joint 1619655049 12958 M17.12 [id number] MARILEE COLLINS [facility] [address] [place], [place] [address] [address] [place] [id number] 10/02/2023 10:29:22 10/02/2023 11:23:55 Osteoarthritis of left knee joint 4361876970 15017 M17.12 [id number] MD RISA Quinonez [place] [id number] 10/16/2023 13:19:48 10/16/2023 13:50:13 Osteoarthritis of left knee joint 0411117947 48367 M17.12 Arthritis of knee 776885 002 M13.869 [id number] MARILEE GOLDBERG [address] [address] 01/07/2024 09:07:02 01/07/2024 15:41:48 Osteoarthritis of left knee joint 6598396853 44664 M17.12 [id number] MARILEE GOLDBERG [address] [place] [address] 01/27/2024 09:39:09 01/27/2024 10:04:22 History of total knee arthroplasty 8816606992 105 Z96.652 Additional diagnosis detail: Status post left knee replacemen t [id number] MD RISA Quinonez [address] [address] 02/23/2024 12:41:43 02/23/2024 13:02:10 History of total knee arthroplasty 0368683798 105 Z96.652 [id number] MD RISA Quinonez [address] [address] 03/29/2024 13:29:02 03/29/2024 13:46:47 History of total knee arthroplasty 6253374209 105 Z96.652 [id number] MD RISA Gold [address] [address] 04/22/2024 11:02:24 04/22/2024 11:59:00 Pain of right wrist 4517783127 63495 M25.531 383915 Pain of left wrist 96363 32825 51569 M25.532 429071 Osteoarthr itis of metacarpophalangeal joint of finger 295924411 M19.042 6810943407 Radial sty loid tenosynovitis 67557236 M65.4 602324 Triggering of digit 2399 77524 M65.334 [id number] MD RISA Gold [address] [address] 05/27/2024 14:52:40 05/27/2024 15:44:50 Radial styloid tenosynovitis 19746765 M65.4 [id number] MD RISA Dobbins [address] [address] 09/29/2024 14:02:31 09/29/2024 14:39:31 Triggering of digit 351375603 M65.709 7768130 Radial sty loid tenosynovitis 98773662 M65.4 [id number] Health Concerns Section Related Observation LastModified by Organization Detai ls LastModified Time None Recorded Concern Status LastModified by Organization Details LastModified Time None Recorded Advance Directives Directive None Recorded Payers Insurance Date Sequence Insurance Name Policy Number Policy Lassiter Covered Member ID Lassiter Member ID Guarantor Name 11/15/2024 1 [employer] (MEDICARE REPLACEMENT /ADVANTAGE - PPO) [id number] 1 Coleen Machado [id number] Gino Machado 11/15/2024 2 [employer] ( - MEDICARE SUPPLEMENT) Gino Machado [id number] Gino Machado Notes Date Note Type Note Provider Name and Address Organization Details Recorded Time 04/22/2024 text/html ROS as noted in the HPI This is a 68-year-old avwcm-aeys-akpkoz nt female who presents with bilateral, right worse [...] Blanquita Killian MD [address], [place], [address], [place] [facility] 04/22/2024 12:25:57 05/27/2024 text/html ROS as noted in the HPI She presents for follow-up of her left wrist Dequervain's tenosynovitis, she has tried brace, activity modification, anti-inflammatori es with continued pain. She would like to consider a cortisone injection today. Blanquita Killian MD [address], [place], [address], [place] [facility] 05/30/2024 16:18:17 09/29/2024 text/html ROS as noted in the HPI 69-year-old woman presenting with recurrent left de Quervain's recently had injection with Dr. Killian 05/27/2024 resolved majority of the pain. She also has triggering of her right long finger she is interested in discussing treatment options Pop Jones MD [address], [place], [address], [place] [facility] 09/29/2024 14:32:38 OBGyn Episode No OBEpisode recorded.
--- OUTSIDE RECORDS SUMMARY | 2025-03-20 15:52 | XMS_ITS | Clinical Summary ---
Author Organization [facility] Address [address] [place] [address] Care Team Providers Care Senior Maintenance Technician Name Role Phone Melanie Salguero MD Primary [...] diaphragm Sister 1 Babita Alive Sister 2 Vensu Alive Sister 3 Zainab Alive Social History [...] 66 01/13/2024 8:03 AM EDT Temperature 36.5 C (97.7 F) 01/13/2024 8:03 AM EDT Respiratory Rate 16 01/13/2024 8:03 AM EDT [...] Shingrix-Zoster Vaccine (1 o f 2) 2007 Fall Risk Assessment 2022 Osteoporosis Screening (DEXA Scan) 2022 Pneumococcal Vaccine (2 of 2 - PCV) 2022 03/08/2010 COVID-19 Vaccine (3 - 2024-2 6 season) 2025 07/19/2021, 06/21/2021 Influenza Vaccine (#1) 2025 4, 06/20/2013, 03/08/2010 RSV Adult > 60+ Yrs or (1 - 1-dose 75+ series) 2032 Hepatitis B Vaccines Aged Out No long er eligible based on patient's age to complete this topic RSV Ped < 20 months Aged Out No longe r eligible based on patient's age to complete this topic Medical Devices Implanted Type Area Fourdrinier Operator Device Identifier Shelf Expiration Date Model / Serial / Lot Knee Fem Bsplt W Pa Stry-Howm [id number] - [id number] Implanted:Qty: 1 on 12/16/2021 by Rupesh Tai MD at [facility] Right: Knee [employer] [id number] 09/01/2026 5517-F-402 / / [id number] Knee Bsplt Triathlon Ti Sz 4 Stry-HowMungo [id number] 543 - [id number] Implanted:Qty: 1 on 12/16/2021 by Rupesh Tai MD at [facility] Right: Knee [employer] [id number] 10/11/2026 5536-B-400 / / [id number] Knee Tib Insrt Cr-X3 [id number] Stry-HowMungo [id number] - [id number] Implanted:Qty: 1 on 12/16/2021 by Rupesh Tai MD at [facility] Right: Knee [employer] [id number] 05/29/2026 5530-G-411 / / [id number] Knee Bsplt Triathlon Ti Sz 3 Stry-Howm [id number] 551 - [id number] Implanted:Qty: 1 on 01/11/2024 by Rupesh Tai MD at [facility] Left: Knee [employer] [facility] [id number] 07/27/2028 5536-B-300 / / [id number] Tibial Bearing Insert Cr 10mm [employer] [id number] - [id number] Implanted:Qty: 1 on 01/11/2024 by Rupesh Tai MD at [facility] Left: Knee [facility] [id number] 03/15/2028 5530-G-310 -E / / [id number] Knee Fem Bsplt W Pa Stry-HowMungo [id number] 555 - [id number] Implanted:Qty: 1 on 01/11/2024 by Rupesh Tai MD at [facility] Left: Knee [employer] [facility] [id number] 10/15/2028 5517-F-301 / / [id number] Explanted Type Area Fourdrinier Operator Device Identifier Shelf Expiration Date Model / Serial / Lot Knee Tib Insrt Cr-X3 [id number] [employer] [id number] - [id number] Explanted:Qty: 1 on 12/16/2021 at [facility] Right: Knee [employer] [facility] [employer] [id number] 05/18/2023 5530-G-409 / / [id number] Advance Directives For more information, please contact: [phone] Latest Code Status on File Code Status Date Activated Date Inactivated Comments Full Code 01/11/2024 9:33 AM 01/13/2024 11:24 PM This code status was ascertained in the following way: discussion with patient . Code Status History Code Status Date Activated Date Inactivated Comments Full Code 01/11/2024 7:02 AM 01/11/2024 9:33 AM This code status was ascertained in the following way: discussion with healthcare product sales representative . Full Code 12/16/2021 11:19 AM 12/19/2021 12:34 AM Thi s code status was ascertained in the following way: per living will or healthcare instructions . Full Code 12/16/2021 6:32 AM 12/16/2021 11:19 AM This code status was ascertained in the following way: discussion with patient . Care Teams Senior Maintenance Technician Relationship Specialty Start Date End Date Melanie Salguero MD [address] [place] [address] PCP - General Internal Medicine 08/26/21
--- OUTSIDE RECORDS SUMMARY | 2025-03-20 15:52 | XMS_ITS | Clinical Summary ---
Author Organization [facility] Address [address] [place] [address] Care Team Providers Care Flight Surgeon Name Role Phone Unknown Primary Care Provider [phone] Allergies No known active allergies Medications hydroCHLOROthiazi de (HYDRODIURIL) 25 MG tablet Take 25 mg by mouth daily. 3 Active ibuprofen (MOTRIN) 600 MG tabletIndications :Acute right-sided low back pain without sciatica Take 1 tablet (600 mg total) by mouth 4 times daily (every 6 hours) as needed for mild pain. 20 tablet 3 Active cyclobenzaprine (FLEXERIL) 5 MG tabletIndications :Acute right-sided low back pain without sciatica Take 1 tablet (5 mg total) by mouth 3 times daily (every 8 hours) as needed for muscle spasms. 15 tablet 3 Active phentermine 30 MG capsule 3 Active ipratropium-albut jailene (Combivent Respimat) 20-100 mcg/puff inhaler Combivent Respimat 20 mcg-100 mcg/actuation solution for inhalation TAKE 1 PUFF INHALATION 4 TIMES A DAY 2 Active albuterol (PROVENTIL HFA; VENTOLIN HFA) 108 (90 Base) MCG/ACT inhaler Inhale 2 puffs 4 times daily (every 6 hours) as needed. Active semaglutide (OZEMPIC) (1 mg/dose pen) prefilled pen injection Inject 1 mg under the skin once a week. Active predniSONE (DELTASONE) 10 MG tabletIndications :Mild intermittent asthma without complication Take 1 tablet (10 mg total) by mouth daily. Take 4 tablets by mouth on day 1, 3 tablets by mouth on day 2, 2 tablets by mouth on day 3 and 1 tablet by mouth on day 4. Take all in the morning with food. 10 tablet 4 Active Social History Tobacco Use Types Packs/Day Years Used Date Smoking Tobacco: Never Assessed Comments Unknown Sex and Gender Information Value Date Recorded Sex Assigned at Female 12/09/2022 11:13 AM EDT Legal Sex Female 11:12 AM EDT Gender Identity Not on file Sexual Orientation Not on file Last Filed Vital Signs Vital Sign Reading Time Taken Comments Blood Pressure 121/76 06/13/2024 10:39 AM EST Pulse 89 06/13/2024 10:39 AM EST Temperature 35.7 C (96.3 F) 06/13/2024 10:39 AM EST Respiratory Rate - - Oxygen Saturation 100% 06/13/2024 10:39 AM EST Inhaled Oxygen Concentration - - Weight - - Height - - Body Mass Index - - Plan of Treatment Health Maintenance Due Date Last Done Comments Advance Care Planning 1955 Hepatitis C Virus Screening 1955 DTaP/Tdap/Td Vaccines (1 - Tdap) 1976 Mammogram 1997 Colonoscopy 2002 Pneumococcal Vaccines 50+ (1 of 1 - PCV) 2007 Zoster (Shingles) Vaccine (1 of 2) 2007 DXA Bone Density (Females,Ages 65 and older) 2022 Influenza Vaccine 01/20/2025 05/04/2014, , 06/20/2013, Additional history exists COVID-19 Vaccine ( season) 2025 07/19/2021, 06/21/2021 RSV Vaccine 60 years and older and Patients (1 - 1-dose 75+ series) 2032 Hepatitis B Vaccines Aged Out No long er eligible based on patient's age to complete this topic Insurance [employer] MGD MEDICARE [facility] Care Teams Flight Surgeon Relationship Specialty Start Date End Date Unknown Unknow Provider Address PCP - General 12/09/22
--- OUTSIDE RECORDS SUMMARY | 2025-03-20 15:52 | XMS_ITS ---
Author Name [facility] Organization Unknown Results Test Name/Text Value Interpretation Date Range Source GLUCOSE BLDC GLUCOMTR MCNC 101.0 mg/dL Normal 01/11/2024 70 - 199 [facility] BILIRUB SERPL [facility] 0.4 mg/dL Normal 12/16/2023 0.3 - 1 [facility] HCO3 SER SCNC 30.0 mmol/L Normal 12/16/2023 24 - 32 [facility] CHLORIDE SERPL SCNC 99.0 mmol/L Normal 12/16/2023 98 - 10 7 [facility] CREAT SERPL MCNC 0.6 mg/dL Normal 12/16/2023 0.5 - 1 [facility] AST SERPL [facility] 17.0 U/L Normal 12/16/2023 5 - 40 [facility] CALCIUM SERPL [facility]NC 9.8 mg/dL Normal 12/16/2023 8.4 - 10.2 [facility] Glomerular filtration rate/1.73 sq M. predicted 99.0 Normal 12/16/2023 60 - [facility] ANION GAP SERPL [facility] 11.0 mmol/L Normal 12/16/2023 5 - 14 [facility] ALBUMIN SERPL BCG MCNC 4.2 g/dL Normal 12/16/2023 3.5 - 5 [facility] SODIUM SERPL SC[facility] 140.0 mmol/L Normal 12/16/2023 135 - 14 5 [facility] GLUCOSE P FAST SERPL MCNC 75.0 mg/dL Normal 12/16/2023 70 - 99 [facility] ALT SERPL [facility] 14.0 U/L Normal 12/16/2023 7 - 52 [facility] ALP SERPL-CCNC 75.0 U/L Normal 12/16/2023 34 - 104 [facility] PROT SERPL MCNC 7.4 g/dL Normal 12/16/2023 6.4 - 8.5 [facility] BUN SERPL [facility] 22.0 mg/dL Above high normal 12/16/2023 7 - 1 7 [facility] POTASSIUM SERPL SCNC 4.3 mmol/L Normal 12/16/2023 3.5 - 5 .1 [facility] Hgb A1c MFr Bld HPLC 6.1 % Above high normal 12/17/2023 - 5.7 [facility] PREALB SERPL NEPH MCNC 18.2 mg/dL Normal 12/16/2023 17 - 34 [facility] DIFFERENTIAL TYPE AUTOMATED Normal 12/16/2023 C [facility] NEUTROPHILS NO. BLD AUTO 3.8 K/uL Normal 12/16/2023 1.8 - 7.8 [facility] HGB BLD MCNC 12.0 g/dL Below low normal 12/16/2023 12.5 - 16 [facility] LYMPHOCYTES NFR BLD AUTO 31.9 % Normal 12/16/2023 20 - 48 [facility] PMV BLD AUTO 8.5 fL Normal 12/16/2023 7.4 - 11.4 [facility] EMG EOSINOPHIL NO. BLD AUTO 0.2 K/uL Normal 12/16/2023 0 - 0.5 [facility] EOSINOPHIL NFR BLD AUTO 3.3 % Normal 12/16/2023 0 - 6 [facility] MCHC RBC AUTO MCNC 32.5 g/dL Normal 12/16/2023 32 - 36 [facility] BASOPHILS NFR BLD AUTO 0.6 % Normal 12/16/2023 0 - 2 [facility] RDW RBC AUTO RTO 14.8 % Normal 12/16/2023 12.1 - 16.2 [facility] MCV RBC AUTO 83.0 fL Normal 12/16/2023 78 - 100 [facility] MG LYMPHOCYTES NO. BLD AUTO 2.3 K/uL Normal 12/16/2023 1 - 3.2 [facility] MONOCYTES NFR BLD AUTO 10.5 % Normal 12/16/2023 2 - 12 [facility] MCH RBC QN AUTO 26.9 pg Normal 12/16/2023 25 - 33 [facility] WBC NO. BLD AUTO 7.1 K/uL Normal 12/16/2023 4 - 10.5 [facility] RBC NO. BLD AUTO 4.46 M/uL Normal 12/16/2023 4.2 - 5.4 [facility] HCT VFR BLD AUTO 37.0 % Normal 12/16/2023 37 - 47 [facility] BASOPHILS IN BLOOD BY AUTOMATED COUNT 0.0 K/uL Normal 12/16/2023 0 - 0.2 [facility] NEUTROPHILS NFR BLD AUTO 53.7 % Normal 12/16/2023 44 - 74 [facility] PLATELET NO. BLD AUTO 299.0 K/uL Normal 12/16/2023 150 - 450 [facility] MONOCYTES NO. BLD AUTO 0.7 K/uL Normal 12/16/2023 0 - 0.8 [facility] History of Medication Use Medication Directions Dispensed Refills Start Date End Date Status lidocaine (LIDODERM) 5 % Place 1 patch over 12 hours onto the skin every 24 hours. Remove & Discard patch within 12 hours or as directed by 5 active methocarbamoL (ROBAXIN) 500 mg tablet Take 1 tablet (500 mg total) by mouth 4 (four) times daily for 10 days. 5 active naproxen (NAPROSYN) 500 mg tablet Take 1 tablet (500 mg total) by mouth 2 (two) times daily with breakfast and dinner. 5 active atenoloL (TENORMIN) 25 mg tablet Take 1 tablet (25 mg total) by mouth. 5 active methIMAzole (TAPAZOLE) 10 mg tablet Take 1 tablet (10 mg total) by mouth. 5 active SPIRIVA RESPIMAT 2.5 mcg/actuation mist for inhalation 2 PUFF INHALED DAILY FOR 30 DAYS 5 active alendronate (FOSAMAX) 70 mg tablet Take 1 tablet (70 mg total) by mouth. 5 active lidocaine (PF) 10 mg/mL (1 %) injection solution Take 1 mL by injection route. 4 active diclofenac 1 % topical gel APPLY 2 GRAMS TO THE AFFECTED AREA(S) BY TOPICAL ROUTE 4 TIMES PER DAY 4 active ceFAZolin (ANCEF) injection 2 g 2 g, Intravenous, Every 8 hours, First dose on Thu01/11/24 at 2000, For 1 dose, PACU/FloorGive 8 hours after the intra-op cefazolin dose. For Adults, if ordered IV then reconstitute each 1GM vial with 10mL sterile water or normal saline and administer IV Push over 3-5 minutes. 4 024 completed vancomycin (VANCOCIN) 2,000 mg in dextrose 5% 500 mL IVPB Premix 2,000 mg, Intravenous, Once, On Thu01/11/24 at 0945, For 1 dose, Pre-opGive pre-op in OR. 4 024 completed alum & mag hydroxide-simethicone suspension 30 mL 30 mL, Oral, Every 6 hours PRN, indigestion, Starting on Thu01/11/24 at 1553 4 active bisacodyl (DULCOLAX) suppository 10 mg 10 mg, Rectal, Daily as needed, constipation, Starting on Thu01/11/24 at 1553Hold for patients with history of IBS, IBO, Ileostomy. 4 active calcium carbonate (TUMS) chewable tablet 500 mg 500 mg, Chew, Every 4 hours PRN, indigestion, heartburn, Starting on Thu01/11/24 at 1553 4 active gabapentin (NEURONTIN) capsule 100 mg 100 mg, Oral, 3 times daily, First dose on Thu01/11/24 at 1600 4 active magnesium hydroxide (MILK OF MAGNESIA) 400 MG/5ML suspension 30 mL 30 mL, Oral, Daily as needed, constipation, Starting on Thu01/11/24 at 1553Hold for patients with history of IBS, IBO, Ileostomy. 4 active Ozempic, 0.25 or 0.5 MG/DOSE, 2 MG/3ML SOPN Thursday 4 active Ozempic, 0.25 or 0.5 MG/DOSE, 2 MG/3ML SOPN Thursday 4 suspended phentermine 30 MG capsule 3 active cyclobenzaprine (FLEXERIL) 5 MG tablet Take 1 tablet (5 mg total) by mouth 3 times daily (every 8 hours) as needed for muscle spasms. 3 023 active Naltrexone-buPROPion HCl ER (Contrave) 8-90 MG TB12 2 tablets 2 aborted benzonatate (TESSALON) 100 MG capsule TAKE 1 CAPSULE BY MOUTH THREE TIMES A DAY NEEDED FOR COUGH 2 aborted phentermine 15 MG capsule Take 15 mg by mouth every morning before breakfast. 2 aborted montelukast (SINGULAIR) 10 MG tablet Take 1 tablet (10 mg total) by mouth every night at bedtime. 2 active hydroCHLOROthiazide (HYDRODIURIL) tablet 25 mg 25 mg, Oral, Daily, First dose on Thu01/12/24 at 0900 2 active Ipratropium-Albuterol (ALBUTEROL-IPRATROPIUM IN) Inhale into the lungs. 2 aborted albuterol (PROVENTIL) (2.5 MG/3ML) 0.083% nebulizer solution INHALE 1 VIAL BY NEB EVERY 6 HOURS NEEDED FOR WHEEZE OR FOR SHORTNESS OF BREATH 2 suspended Ozempic 2 mg/dose (8 mg/3 mL) subcutaneous pen injector 2 MG SUBCUTANEOUS INJECTION EVERY WEEK,INSTR:IN THE ABDOMEN, THIGH, OR UPPER ARM completed Linzess 290 mcg capsule TAKE 1 CAPSULE B Y MOUTH EVERY DAY active ergocalciferol (vitamin D2) 1,250 mcg (50,000 unit) capsule TAKE 1 CAPSULE BY MOUTH EVERY WEEK FOR 12 WEEK(S) active meloxicam 15 mg tablet completed ondansetron 4 mg disintegrating tablet active amoxicillin 875 mg-potassium clavulanate 125 mg tablet TAKE 1 TABLET BY MOUTH EVERY 12 HOURS FOR 10 DAYS active Mounjaro 2.5 mg/0.5 mL subcutaneous pen injector INJECT 2.5 MG SUBCUTANEOUSLY EVERY WEEK, ROTATE INJECTION SITES active potassium chloride ER 20 mEq tablet,extended release TAKE 1 TABLET BY MOUTH ONCE active sodium,potassium,mag sulfates 17.5 gram-3.13 gram-1.6 gram oral soln TAKE 177 ML BY MOUTH SEE ADMIN INSTRUCTIONS FOR 2 DOSES. 024 active montelukast (Singulair) 10 MG tablet 1 tablet 024 aborted phentermine 15 mg capsule TAKE 1 CAPSULE (15 MG) BY MOUTH ONCE DAILY ON AN EMPTY STOMACH, NO LATER THAN 3PM 023 completed prednisolone acetate 1 % eye drops,suspension INSTILL 1 DROP IN RIGHT EYE FOUR TIMES A DAY FOR FOUR DAYS AND D/C. 023 completed albuterol sulfate 2.5 mg/3 mL (0.083 %) solution for nebulization USE 1 VIAL INHALATION VIA NEBULIZER EVERY 6 HOURS NEEDED FOR WHEEZE OR FOR SHORTNESS OF BREATH active alendronate 70 mg tablet TAKE 1 TABLET BY MOUTH EVERY WEEK active Combivent Respimat 20 mcg-100 mcg/actuation solution for inhalation TAKE 1 PUFF INHALATION 4 TIMES A DAY active hydrochlorothiazide 25 mg tablet TAKE 1 TABLET BY MOUTH EVERY DAY active [facility] spacer active prednisone 10 mg tablet PLEASE SEE ATTACHED FOR DETAILED DIRECTIONS active Spiriva Respimat 2.5 mcg/actuation solution for inhalation active albuterol (PROVENTIL HFA; VENTOLIN HFA) 108 (90 Base) MCG/ACT inhaler Inhale 2 puffs 4 times daily (every 6 hours) as needed. active albuterol (PROVENTIL, VENTOLIN) 2.5 mg /3 mL (0.083 %) nebulizer solution 1 VIALS INHALATION EVERY 6 HOURS NEEDED FOR WHEEZE OR FOR SHORTNESS OF BREATH active albuterol sulfate 90 mcg/actuation HFA aerosol inhaler USE 2 PUFFS INHALATION EVERY 4 HOURS,: NEEDED FOR WHEEZE OR FOR SHORTNESS OF BREATH active Cholecalciferol 25 MCG (1000 UT) tablet Take 5 capsules by mouth every 7 days. For 12 weeks, pt thinks this is 50,000 IU once per week. Takes on thursday active fluticasone propion-salmeteroL (ADVAIR HFA) 115-21 mcg/actuation inhaler 2 PUFF INHALED EVERY 12 HOURS FOR 30 DAYS active hydroCHLOROthiazide (HYDRODIURIL) 25 mg tablet Take 1 tablet (25 mg total) by mouth daily. active linaCLOtide (LINZESS PO) Take 290 mcg by mouth daily. suspended linaCLOtide (LINZESS PO) Take 290 mcg by mouth daily. active montelukast (SINGULAIR) 10 mg tablet Take 1 tablet (10 mg total) by mouth daily. active Naproxen Sodium (Aleve) 220 MG CAPS Take 2 tablets by mouth every 12 (twelve) hours as needed. active OZEMPIC 2 mg/dose (8 mg/3 mL) pen injector 2 MG SUBCUTANEOUS INJECTION EVERY WEEK,INSTR:IN THE ABDOMEN, THIGH, OR UPPER ARM active predniSONE (DELTASONE) 10 mg tablet PLEASE SEE ATTACHED FOR DETAILED DIRECTIONS active semaglutide (OZEMPIC) (1 mg/dose pen) prefilled pen injection Inject 1 mg under the skin once a week. active Allergies Allergen Reaction Severity Comment Documented Date Source Statu s METFORMIN DIARRHEA Other reaction( s): diarrhea 12/15/2023 [facility] active Problems Problem Status Onset Date Problem Type Date of Resolution Source Torticollis, acute active EncounterDiagnosisAct [facility] Osteoarthritis of left knee active EncounterDiagnosisAct [facility] Cervical radiculopathy active EncounterDiagnosi sAct [facility] Hyperlipidemia, unspecified hyperlipidemia type active EncounterDiagnosisAct [facility] Osteoporosis, unspecified osteoporosis type, unspecified pathological fracture presence active EncounterDiagnosisAct [facility] RAN Class 3 obesity (HCC) active EncounterDiagnosis Act [facility] Prediabetes active EncounterDiagnosisAct [facility] Asthma, unspecified asthma severity, unspecified whether complicated, unspecified whether persistent active EncounterDiagnosisAct [facility] Sleep apnea, obstructive active ProblemAct [facility] Chronic constipation active ProblemAct [facility] Osteoarthritis of left knee active 2023-12-22 2 ProblemAct [facility] Dyspnea on exertion active EncounterDiagnosisAc t [facility] Gastroesophageal reflux disease, unspecified whether esophagitis present active EncounterDiagnosisAct [facility] Peripheral neuropathy active ProblemAct [facility] Anemia active ProblemAct [facility] Urinary incontinence, unspecified type active EncounterDiagnosisAct [facility] Chest pain, unspecified type active EncounterDiagnosisAct [facility] Hypertension, unspecified type active EncounterDiagnosisAct [facility] 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 1 ProblemAct [facility] Osteoarthritis of left knee joint active 7 ProblemAct [facility] History of total knee arthroplasty active 7 ProblemAct [facility] Triggering of digit active 1 ProblemAct [facility] Radial styloid tenosynovitis active 1 ProblemAct [facility] Mild intermittent asthma without complication active EncounterDiagnosisAct [facility] Viral URI active EncounterDiagnosisAct [facility] Immunizations Vaccine Date Source Lot Number Status Covid-19 (Moderna 12+) 100mcg/0.5mL dosage 07/19/2021 [facility] completed Covid-19 (Moderna 12+) 100mcg/0.5mL dosage 06/21/2021 [facility] completed Encounters Encounter Type Encounter Reason Primary Diagnosis Location Date Ambulatory Torticollis, unspecified Torticollis, unspecified [facility] 11/30/2024 Ambulatory Sciatica Sciatica [facility] 10/26/19 Ambulatory [facility] 09/29/2024 Ambulatory [facility] 09/29/2024 Ambulatory [facility] 09/07/2024 Ambulatory [facility] 08/05/2024 Ambulatory [facility] 06/30/2024 Ambulatory Cough Cough [facility] 06/13/2024 Ambulatory [facility] 04/25/2024 Ambulatory [facility] 04/22/2024 Ambulatory [facility] 03/28/2024 Ambulatory [facility] 03/28/2024 Ambulatory [facility] 01/27/2024 Ambulatory [facility] 01/27/2024 Ambulatory [facility] 01/27/2024 Ambulatory [facility] 01/22/2024 Ambulatory Encounter for other preprocedural examination Encounter for other preprocedural examination [facility] 01/11/2024 Ambulatory Encounter for preprocedural cardiovascular examination Encounter for preprocedural cardiovascular examination [facility] 01/07/2024 Ambulatory Encounter for preprocedural cardiovascular examination Encounter for preprocedural cardiovascular examination [facility] 01/07/2024 Ambulatory [facility] 01/07/2024 Ambulatory [facility] 12/15/2023 Ambulatory [facility] 10/03/2023 Ambulatory [facility] 09/22/2023 Ambulatory [facility] 09/18/2023 Ambulatory Mild intermittent asthma, uncomplicated Mild intermittent asthma, uncomplicated [facility] 02/26/2023 Ambulatory Low back pain, unspecified [facility] 12/09/2022 Ambulatory [facility] 12/03/2022 Ambulatory [facility] 12/03/2022 Ambulatory [facility] 12/01/2022 Ambulatory [facility] 12/01/2022 Ambulatory [facility] 08/27/2022 Care Team Organization Name Specialty Phone Email Start Date End Da te [facility] 10/25/2024 [facility] 12/15/2023 [facility] 12/15/2023 01/03/2025 [facility]23 [facility] 12/09/2022 09/07/2024 [facility] 12/09/2022 12/09/2022
--- OUTSIDE RECORDS SUMMARY | 2025-03-20 15:52 | XMS_ITS | Patient Health Record ---
Author Organization [facility] [address] Address [address] [place] [address] Care Team Providers Care Transfer Specialist Name Role Phone VIRGINIE DE LA GARZA Unavailable [phone] Allergies No Known Allergies Reason For Referral No Information Medications Medication SIG (Take, Route, Frequency, Duration) Notes Start Date End Date Status Berberine HCI 500 MG as directed Orally Active Ibuprofen 600 MG 1 tablet with food o r milk as needed Orally once a day; Duration: 30 days 02/24/2023 Active Phentermine HCl 30 MG 1 capsule Orally O nce a day; Duration: 30 days 02/24/2023 Active hydroCHLOROthiazide 25 MG 1 tablet in th e morning Orally Once a day Active Singulair 10 MG 1 tablet Orally Once a day Active Social History Tobacco Use: Social History Observation Description Date Details (start date - stop date) Never Smoker NA - NA Tobacco Use/Smoking Question Answer Notes Are you a nonsmoker Problems Problem Type SNOMED Code ICD Code Onset Dates Problem Status W/U Status Risk Notes Problem Vitamin D deficiency (91226447) Vitamin D deficiency, unspecified (E55.9) Active confirmed Problem Morbid obesity (disorder) (165375004) Morbid (severe) obesity due to excess calories (E66.01) Active confirmed Problem Obesity due to exces s calories (781544519) Other obesity due to excess calories (E66.09) Active confirmed Problem Hyperlipidaemia (49659977) Hyperlipidemia, unspecified hyperlipidemia type (E78.5) Active confirmed Problem Hyperlipoproteinemia (4907123) Acquired hyperlipoproteinemia (E78.5) Active confirmed Problem Sleep apnea (23569206) Sleep apnea, unspecified type (G47.30) Active confirmed Problem Body mass index 35.0 0 to 39.99 (574281767919967) Body mass index [BMI] 39.0-39.9, adult (Z68.39) Active confirmed Problem Body mass index 40+ - severely obese (263500662) Body mass index [BMI] 45.0-49.9, adult (Z68.42) Active confirmed Problem Primary hypertension (05984268) Primary hypertension (I10) Active confirmed Plan Of Treatment Pending Test Test Name Order Date EKG 11/20/2021 Insurance Providers Payer Name Payer Address Payer Phone Subscriber Number Group Number Insured Name Patient Relationship to Insured Coverage Start Date Coverage End Date [employer] [address] [address] [place] [address] [id number] Coleen Machado Self - patient is the insured for life [address] [place] [address] [id number] Coleen Machado Self - patient is the insured Medications Administered Medication Instructions Date of Administration Dosage Notes MICC B12 INJECTION 03/18/2021 lot # [id number] MICC B12 INJECTION 12/25/2022 1 mg Lot # [id number] MICC B12 INJECTION 01/15/2023 1 Semaglutide 01/15/2023 0.25 mg R tricep SQ Semaglutide 01/22/2023 sema 0.25mg Semaglutide 01/29/2023 0.25 mg LRQ SQ Semaglutide 02/05/2023 0.5 mg LRQ SQ Medical (General) History Medical History History ICD Code hypertension allergies sleep apnea Surgical History Surgery Date(Month/Year) section ankle surgery right knee replacement surgery Bonnie vora
== END ==
LOC: HO.SL 14:02
PROVIDERS: PCP Internal Medicine; Visit Provider Hospitalist
DX: G47.33 Obstructive sleep apnea (adult) (pediatric) (principal)
CPT/HCPCS: 95806

== ENCOUNTER → 2025-03-20 14:14 | Outpatient (BNV) | payer MEDICARE, OTHER, SELFPAY | PROVIDERS: PCP Internal Medicine; Visit Provider Internal Medicine | DX: G47.10 Hypersomnia, unspecified (principal) | CPT/HCPCS: 95806 ==

== ENCOUNTER 2025-04-06 09:32 | Outpatient (AMB) | payer MEDICARE, OTHER, SELFPAY ==
[2025-04-06 09:35] VITALS: BP 100/70; PULSE 79; O2SAT 97; BMI 37.8
--- NOTE | 2025-04-06 09:35 | A.OFFVIS_ITS ---
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 She has been having worsening respiratory symptoms and she was made an appointment. Apparently she was initially diagnosed in her y oung adult years. She was initially treated by her primary care doctor and she felt that she received too much steroids. Subsequently after that she felt that she started developing complications from the steroids including cataracts and also osteoporosis. Subsequently after that she stopped taking any inhaled steroid medication. She had been on Advair for some time. It did bother her throat it was the disc is preparation and therefore she stopped taking it. She continued to use a Combivent inhaler and she also had a albuterol rescue inhaler. Sleep study at this time though. Recently the patient did have knee surgery and she was recovering to physical therapy. She started developing worsening shortness of breath chest tightness and wheezing. She was asked by her therapist to use her inhaler prior to the physical therapy but still continued to have significant wheezing. Therefore it was recommended that she seek pulmonary care. She had been seen at [facility] for many years. The patient had numerous studies done including x-rays a CT scan of the chest which we personally reviewed and also PFTs but I can not find PFTs in the last 510 years. Her CTA did demonstrate a small 2-3 mm nodule in the left lower lobe that was not mentioned on the report. This is from a CT scan from 2019. She also had a chest x-ray done in 2021 after she had a fall some discomfort in the x-ray appeared to be completely normal. In regards to her sleep apnea patient was diagnosed many years ago. She had been using CPAP. But during the pandemic she stopped using it and she had been sleeping upright on a recliner or with a wedge and she has been sleeping okay though she has been waking up tired. Her [place] score is elevated 1124. She is wondering if she needs to go back to using her CPAP. She will need to have a sleep study at this time. 07/25/2024 the patient is here for a pulmonary follow-up visit. Overall the patient has been doing well. She did get sick with an asthma flare-up after she saw me and she did take prednisone as her primary care doctor she is now better although she still not at her baseline. Still having some wheezing at times. She has been using the Advair HFA and has been helping. She also has a rescue inhaler that she uses a couple times a week. The patient did undergo pulmonary function studies and she seems to be having a partial reversible obstruction consistent with uncontrolled asthma and asthma COPD overlap syndrome. Therefore, will go ahead and add an anticholinergic, Spiriva to her regimen. Therefore will maximize her respiratory therapy at this time. The patient is also interested in pulmonary rehabilitation which I believe is an excellent idea. I will put in a referral rinse so she can not start the program here at [facility]. She still having daytime drowsiness. The patient needs to have her sleep study. She had to reschedule because she got sick. 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 Will follow-up in 3-4 months to review her sleep study results and to assess her progress on the additional respiratory medicine. [facility] Medical History (Updated 04/06/25 @ 09:57 by [facility] MD) Nocturnal hypoxia Asthma-COPD overlap syndrome ADITYA (obstructive sleep apnea) Cough Osteoarthritis Obesity Cervical radiculopathy Constipation Asthma Pre-diabetes GERD (gastroesophageal reflux disease) Iron deficiency anemia Urge incontinence ADITYA on CPAP Surgical History History of ankle surgery Hx of section Hx of colonoscopy Social History Are you a primary healthcare administration internship to a significant other at home: No Do you presently have visiting nurse or other home services: No Patient Tobacco Use Status: Never used Tobacco Review of Systems Const Reports daytime sleepiness, Reports difficulty sleeping and Reports fatigue Eyes Reports no additional complaints ENT Reports nasal congestion Card Denies chest pain and Reports dyspnea on exertion Resp Reports cough, Reports dyspnea on exertion and Reports wheezing GI Reports no additional complaints Musc Reports as per HPI, Reports abnormal gait and Reports arthralgias Skin/Breast Denies rash Neuro Reports abnormal gait Endo Reports fatigue Cristi/Lymph Reports no additional complaints Aller/Immun Reports wheezing Physical Exam Vital Signs: Last Vital Signs Pulse 79 04/06/25 09:35 BP 100/70 04/06/25 09:35 Pulse Ox 97 04/06/25 09:35 Oxygen Delivery Method Room Air 04/06/25 09:35 BMI result Body Mass Index 37.8 Const General: comfortable HEENT Head: Yes normocephalic Neck Neck: Yes supple Chest Chest palpation & inspection: normal inspection of the chest Resp Effort & Inspection: normal respiratory effort and prolonged expiratory phase Auscultation: wheezes Cardio Heart sounds: S1 normal heart sound present and S2 normal heart sound present GI Palpation (GI): Soft to palpation Skin General skin exam: no rashes or lesions noted Extrem General: No clubbing and No cyanosis Assessment & Plan Assessment & Plan (1) Cough: Code(s): R05 - Cough Category: Medical Qualifiers: Cough type: chronic Qualified Code(s): R05.3 - Chronic cough (2) ADITYA (obstructive sleep apnea): Code(s): G47.33 - Obstructive sleep apnea (adult) (pediatric) Category: Medical (3) Asthma: Code(s): J45.909 - Unspecified asthma, uncomplicated Category: Medical Qualifiers: Asthma complication type: uncomplicated Asthma persistence: persistent Asthma severity: moderate Qualified Code(s): J45.40 - Moderate persistent asthma, uncomplicated (4) Asthma-COPD overlap syndrome: Code(s): J44.89 - Other specified chronic obstructive pulmonary disease Category: Medical (5) Nocturnal hypoxia: Code(s): G47.34 - Idiopathic sleep related nonobstructive alveolar hypoventilation Category: Medical Plan inlab PSG conitnue Advair HFA continue Spiriva Use spacer EDWAR as needed consider Biologics F/U 4-6 months Orders: Orders RT PSG in-lab sleep study Today G47.33 - Obstructive sleep apnea (adult) (pediatric), G47.34 - Idiopathic sleep related nonobstructive alveolar hypoventilation Medications: New azithromycin 500 mg PO DAILY 5 tabs 0RF 5 days prednisone PO daily; Take 6 tabs daily x 3 days, then 5 tabs x 3 days, then 4 tabs x 3 days, then 3 tabs x 3 days, then 2 tabs daily x 3 days, then 1 tab x 3 days to complete. 63 tabs 0RF 18 days Coding Level of Care Code Est Pt Level 4 (59227) Complex EM visit Add On G2211 Diagnoses Chronic cough R05.3 Cough type: chronic ADITYA (obstructive sleep apnea) G47.33 Moderate persistent asthma without complication J45.40 Asthma complication type: uncomplicated Asthma persistence: persistent Asthma severity: moderate Asthma-COPD overlap syndrome J44.89 Nocturnal hypoxia G47.34 Time Spent (min) 17
--- OUTSIDE RECORDS SUMMARY | 2025-04-06 10:55 | XMS_ITS | Data Portability ---
Author Organization [place] [facility] Satnam Albarran [place] Address [address] [place] [address] Care Team Providers Care Fabrication Supervisor Name Role Phone MAGO SHEN Primary Care Provider Assessment Encounter Date Assessment Date Assessment LastModified by Organization Details LastModified Time 03/29/2024 03/29/2024 Coleen is here for range [...] of the left knee at that time. [email or web address] Not available 03/29/2024 13:47:29 04/22/2024 04/22/2024 The [...] 6 weeks. [email or web address] Not available 05/30/2024 16:17:40 09/29/2024 09/29/2024 The [...] right trigger finger injection at that time. [email or web address] Not available 09/29/2024 14:32:14 03/24/2025 03/24/2025 The above findings were discussed in detail the patient. She is evidence of left Dequervain's tenosynovitis after a cortisone injection 6 months ago and right ring finger trigger finger. Pathology and expected prognosis were discussed. Treatment options include another cortisone injection versus consideration for surgery in the form of Dequervain's release and/or A1 jalyn release. She would like to proceed with injections into her left Dequervain's and right ring finger A1 jalyn. Details of injection and as well as [...] consent. They tolerated the procedure well. She will return to see me if her symptoms do not improve or they recur. All her questions were answered, she is in agreement the plan. [email or web address] Not available 03/24/2025 16:20:16 Plan of Treatment Reminders Order Date Submit Date Provider Last Modified By Organization Details Last Modified Time Details Appointments None recorded . Lab None recorded . Referral None recorded . Procedures None recorded . Surgeries None recorded . Imaging XR, wrist, 3 or more view 2023 024 [email or web address] [facility], [address], [place], [address], 11/01/202 4 13:17:46 XR, wrist, 3 or more view 2023 024 [facility], [address], [address], [place], [address], 4 13:17:46 Medication Orders lidocain e (PF) 10 mg/mL (1 %) injectio n solution 2024 025 [id number], [address] [place], [address], 5 16:34:58 triamcin olone acetonid e 40 mg/mL suspensi on for injectio n 2024 025 [id number], [address] [place], [address], 5 16:34:58 lidocain e (PF) 10 mg/mL (1 %) injectio n solution 2024 025 [id number], [address] [place], [address], 5 16:34:58 triamcin olone acetonid e 40 mg/mL suspensi on for injectio n 2024 025 [id number], [address] [place], [address], 5 16:34:58 lidocain e (PF) 10 mg/mL (1 %) injectio n solution 2024 025 [email or web address] Not available 5 08:40:43 triamcin olone acetonid e 40 mg/mL suspensi on for injectio n 2024 025 [email or web address] Not available 5 08:40:43 lidocain e (PF) 10 mg/mL (1 %) injectio n solution 2023 024 [email or web address] Not available 4 11:49:48 triamcin olone acetonid e 40 mg/mL suspensi on for injectio n 2023 024 [email or web address] Not available 4 11:49:48 diclofen ac 1 % topical gel 2023 025 [id number], [address] [place], [address], 5 14:12:05 Patient TargetsNo targets recorded. Patient Instructions Encounter Date Encounter Id Patient Instructions Last Modified By Organization Details Last Modified Time 04/22/2024 [id number] views of bilateral wrist were ordered and reviewed today, this demonstrates no acute findings. 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 Otherwise anatomic alignment of the wrist and carpal bones. [email or web address] Not available 04/22/2024 12:24:00 03/24/2025 [id number] You have been provided with a cortisone injection in order to reduce the pain and inflammation that you are experiencing. The injection consists of two medications. Cortisone (an anti-inflammatory that will take 48-72 hours to take effect) and Lidocaine (a numbing agent that will last 2-3 hours). Please note that not everyone will have a lasting response following the injection. PATIENT INSTRUCTIONS Once the Lidocaine wears off, you may have an increase in your pain. I recommend icing the affected area for 20 minutes 3-4 times per day. It is recommended that you refrain from any high level activities using the joint or limb that was injected for approximately 24-48 hours. Normal day-to-day activities are generally not a problem. POSSIBLE SIDE EFFECTS Individuals with dark complexions may experience some skin discoloration locally at the site of the injection. There is the possibility of an increase in discomfort within 48 hours following the injection. This is called lea rodgers . To help minimize the chances of this, please see the post-injection instructions above. There is a less than 1% chance of an infection. If you notice any signs of infection (redness, warmth, drainage, fever greater than 100 degrees) please call our office or contact us through the portal [facility]. [email or web address] Not available 03/24/2025 16:19:34 Reason for Referral None Reported. Problems Name Problem SNOMED Code Status Onset Date Resolution Date Notes Provider Name and Address Organization Details Recorded Time Acquired trigger finger of right middle finger 32476297134 9105 Active 2022 Ayden Khan MD [address], [place], [address] , [place] [facility] 3 11:23:45 Osteoarth ritis of left knee joint 25563739232 9109 Active 2022 AURA REYES PA-C [address], [place], [address] , [place] [facility] 3 11:04:02 Obstructi ve sleep apnea syndrome 68864360 Active 2023 Sleep apnea, obstructi ve Not Available [facility] 5 23:22:41 Osteoporo sis 30716821 Active 2023 Osteoporo sis Not Available [facility] 5 23:22:42 Gastroeso phageal reflux disease 280685540 Active 2023 GERD (gastroes ophageal reflux disease) Not Available [facility] 5 23:22:43 Hyperlipi demia 72770925 Active 2023 Hyperlipi demia Not Available [facility] 5 23:22:43 Asthma 383637318 Active 2023 Asthma Not Available [facility] 5 23:22:44 Hypertens tere disorder 89935803 Active 2023 Hypertens ion Not Available [facility] 5 23:22:44 Anemia 297471813 Active 2023 Anemia - Overview: Formattin g of this note might be different from the original. iron transfusi on weekly in 2103 Not Available [facility] 5 23:22:45 Urinary incontine nce 056757469 Active 2023 Urinary incontine nce Not Available [facility] 5 23:22:42 Periphera l nerve disease 088170755 Active 2023 Periphera l neuropath y - Overview: Formattin g of this note might be different from the original. 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 Procedures Surgical History Date Name Laterality Status Provider Name and Address Organization Details Recorded Time 03/24/20 25 LES trigger finger/De Quervain's injection completed Colleen Bowles [facility] 03/24/2025 14:02:20 03/24/20 25 AJR trigger finger/De Quervain's injection completed Colleen Bowles [facility] 03/24/2025 14:02:29 09/30/19 25 LES trigger finger/De Quervain's injection completed Pop Jones MD [address], [place], [address], [place] [facility] 09/29/2024 14:30:55 05/27/20 24 LES trigger finger/De Quervain's injection completed Blanquita Killian MD [address], [place], [address], [place] [facility] 05/30/2024 16:16:50 01/11/20 24 TOTAL KNEE ARTHROPLASTY (SURG) completed Macie Hopson [place] [facility] 01/12/2024 09:00:37 10/02/19 24 TOSHIA Knee Injection completed AURA REYES PA-C [address], [place], [address], [place] [facility] 10/02/2023 11:25:23 05/19/20 23 TOSHIA Knee Injection completed AURA REYES PA-C [address], [place], [address], [place] [facility] 05/19/2023 17:01:18 02/27/20 23 TOSHIA Knee Injection completed AURA REYES PA-C [address], [place], [address], [place] [facility] 02/26/2023 11:02:17 12/02/19 23 TOSHIA Knee Injection completed AURA REYES PA-C [address], [place], [address], [place] [facility] 12/01/2022 10:09:03 arthroplasty of knee completed Paula Beckford [place] [facility] 12/01/2022 09:53:12 delivery completed Paula Beckford [place] [facility] 12/01/2022 09:53:19 Imaging Results None recorded. Procedure Notes None recorded. Medical Equipment None Reported. Allergies Allergen ID Allergen Name Allergen Category Reaction Reaction Severity Criticality Documentation Date Start Date Code Code System Note Provider Name and Address Organization Details Recorded Time 78858 metformin medicatio n Not available Not available Not available 03/14/20252023 7409 RxNorm React ion: Bonny veliz, lillie ity: Unkno wn;Ot her react ion(s ): bonny veliz Not Available [facility] 01:16:15 Medications Name Sig Start Date Stop Date Status Note LastModified by Organization Details LastModified Time methocarbam ol 500 mg tablet TAKE 1 TABLET BY MOUTH THREE TIMES A DAY 03/24 completed Not Available Not Available Not Available metformin 500 mg tablet TAKE 1 [...] Not Available Not Available No t Available doxycycline hyclate 100 mg capsule TAKE 1 CAPSULE BY MOUTH TWICE A DAY FOR 10 DAYS 03/24 completed Not Available Not Available Not Available albuterol sulfate 2.5 mg/3 mL (0.083 [...] Available Not Available meloxicam 15 mg tablet TAKE 1 TABLET BY MOUTH EVERY DAY WITH FOOD active Not Available Not Available No t Available bupivacaine HCl 0.5 % (5 mg/mL) injection solution 05/27 completed Not Available Not Available Not Available prednisone 20 mg tablet TAKE 2 TABLETS BY MOUTH (SAME TIME) DAILY FOR 5 DAYS, AND THEN 1 TAB DAILY FOR 5 DAYS 03/24 completed Not Available Not Available Not Available alendronate 70 mg tablet TAKE 1 TABLET BY MOUTH EVERY WEEK active Not Available Not Available No t Available sennosides 8.6 mg-docusate sodium 50 mg tablet Take 1 tablet by mouth 2 (two) times a day. 03/24 completed Not Available Not Available Not Available atenolol 25 mg tablet TAKE 1 TABLET [...] completed Not Available Not Available Not Available methimazole 5 mg tablet TAKE 1 TABLET BY MOUTH EVERY DAY active Not Available Not Available No t Available montelukast 10 mg tablet TAKE 1 TABLET BY MOUTH EVERYDAY AT BEDTIME active Not Available Not Available No t Available hydrochloro thiazide 25 mg tablet TAKE 1 TABLET BY MOUTH EVERY DAY active Not Available Not Available No t Available gabapentin 100 mg capsule Take 1 capsule (100 mg total) by mouth 3 (three) times a day. 03/24 completed Not Available Not Available Not Available ergocalcife rol (vitamin D2) 1,250 mcg [...] No t Available methimazole 10 mg tablet 2 TABLET BY MOUTH DAILY,INS TR:20 MG DAILY 03/24 completed Not Available Not Available Not Available ondansetron 4 mg disintegrat ing tablet [...] Not Available No t Available amoxicillin 875 mg-potassiu m clavulanate 125 mg tablet TAKE 1 [...] Available Not Available Not Available Josr Edmond [facility] spacer active Not Available Not Available Not [...] INJECT 1 MG SUBCUTANE OUSLY EVERY WEEK 03/24 completed Not Available Not Available Not Available Ozempic 2 mg/dose (8 mg/3 mL) subcutaneou s pen injector 2 MG SUBCUTANE OUS INJECTION EVERY WEEK,INST R:IN THE ABDOMEN, THIGH, OR UPPER ARM 10/03 /2025 completed Not Available Not Available Not Available Mounjaro 7.5 mg/0.5 mL subcutaneou s pen injector 7.5 MG SUBCUTANE OUS INJECTION EVERY WEEK,INST R:ROTATE INJECTION SITES active Not Available Not Available No t [...] cm Annie Britt [place] [facility] 09/29/2024 14:12:22 Date Recorded Body height Provider Name an d Address Organization Details Last Updated DateTime 03/29/2024 [address] [place] [facility] 03/29/2024 13:44:15 Date Recorded Body height Body mass index (BMI) Body weight Provider Name and Address Organization Details Last Updated DateTime 04/22/2024 165.1 cm 38.3 kg/m2 937654.[address] [place] [facility] 04/22/2024 11:20:11 Social History None recorded. [...] Not available 11/20 09:52:02 Sister Diabetes mellitus jui Not available 11/20 09:52:50 Mother Diabetes mellitus [email or web address] Not available 11/20 09:52:50 Brother Diabetes mellitus jui Not available 11/20 09:52:50 Medical History Condition Response Asthma Y Gastrointestinal Disease Y Hypertension Y Gynecological HistoryNo gynecological history recorded. Obstetrics History GPAL:G 0 P 0 0 0 0 Immunizations Vaccine Type Date Status Note Provider Nam e and Address Organization Details Recorded Time COVID-19, mRNA, LNP-S, PF, 100 mcg/0.5mL dose or 50 mcg/0.25mL dose 06/21/2021 completed Not Available [facility] 06:10:58 COVID-19, mRNA, LNP-S, PF, 100 mcg/0.5mL dose or 50 mcg/0.25mL dose 07/19/2021 completed Not Available [facility] 06:10:58 Past Encounters Encounter ID Performer Location Encounter Start Date Encounter Closed Date Diagnosis/Indication Diagnosis SNOMED-CT Code Diagnosis ICD10 Code Diagnosis IMO Codes Diagnosis Note [id number] MARILEE COLLINS [place] [phone] 12/01/2022 09:20:27 12/01/2022 10:02:15 Osteoarthritis of right knee joint 1391756642 53346 M17.11 [id number] [place] [phone] 12/03/2022 10:42:28 12/03/2022 11:16:10 Pain in finger of right hand 9756112395 78415 M79.644 Acquired t paleontological helper finger of right middle finger 1031951890 48052 M65.331 [id number] MARILEE COLLINS [address] [address] 02/26/2023 09:48:44 02/26/2023 10:57:50 Osteoarthritis of left knee joint 5457579597 09599 M17.12 [id number] MARILEE COLLINS [address] [address] 05/19/2023 09:58:09 05/19/2023 10:46:46 Osteoarthritis of left knee joint 5762464431 10529 M17.12 [id number] MARILEE GOLDBERG [address] [address] 06/23/2023 13:54:40 06/23/2023 14:27:57 Osteoarthritis of left knee joint 9092638656 44108 M17.12 [id number] MARILEE COLLINS [facility] [address] [place] [address] [place] [address] 10/02/2023 10:29:22 10/02/2023 11:23:55 Osteoarthritis of left knee joint 2889374100 96441 M17.12 [id number] MD RISA Quinonez [address] [address] 10/16/2023 13:19:48 10/16/2023 13:50:13 Osteoarthritis of left knee joint 6477930877 46181 M17.12 Arthritis of knee 835697 002 M13.869 [id number] MARILEE GOLDBERG [address] [address] 01/07/2024 09:07:02 01/07/2024 15:41:48 Osteoarthritis of left knee joint 6312410341 43201 M17.12 [id number] MARILEE GOLDBERG [address] [place] [address] [place] [address] 01/27/2024 09:39:09 01/27/2024 10:04:22 History of total knee arthroplasty 0926432115 105 Z96.652 Additional diagnosis detail: Status post left knee replacemen t [id number] MD RISA Quinonez [address] [address] 02/23/2024 12:41:43 02/23/2024 13:02:10 History of total knee arthroplasty 3194241844 105 Z96.652 [id number] MD RISA Quinonez [address] [address] 03/29/2024 13:29:02 03/29/2024 13:46:47 History of total knee arthroplasty 3045213700 105 Z96.652 [id number] Blanquita Killian MD [facility] [place] [id number] 04/22/2024 11:02:24 04/22/2024 11:59:00 Pain of right wrist 7475898512 89183 M25.531 000295 Pain of left wrist 46643 60338 74985 M25.532 662346 Osteoarthr itis of metacarpophalangeal joint of finger 381292324 M19.042 0853243500 Radial sty loid tenosynovitis 41831575 M65.4 350710 Triggering of digit 2399 29858 M65.716 [id number] Blanquita Killian MD [facility] [place] [phone] 05/27/2024 14:52:40 05/27/2024 15:44:50 Radial styloid tenosynovitis 20595241 M65.4 [id number] Pop Jones MD [facility] [place] [id number] 09/29/2024 14:02:31 09/29/2024 14:39:31 Triggering of digit 686593663 M65.737 2277219 Radial sty loid tenosynovitis 00633019 M65.4 478098 [id number] Blanquita Killian MD [facility] [place] [id number] 03/24/2025 13:26:20 03/24/2025 14:28:27 Radial styloid tenosynovitis 88072321 M65.4 231771 Acquired t paleontological helper finger of right middle finger 3759204470 07605 M65.331 Health Concerns Section Related Observation LastModified by Organization Detai ls LastModified Time None Recorded Concern Status LastModified by Organization Details LastModified Time None Recorded Advance Directives Directive None Recorded Payers Insurance Date Sequence Insurance Name Policy Number Policy Lassiter Covered Member ID Lassiter Member ID Guarantor Name 03/24/2025 1 [employer] (MEDICARE REPLACEMENT /ADVANTAGE - PPO) [id number] 1 Coleen Machado [id number] Gino Machado 03/23/2025 2 FOR LIFE ( - MEDICARE SUPPLEMENT) Gino Machado [id number] Gino Machado Notes Date Note Type Note Provider Name and Address Organization Details Recorded Time 04/22/2024 text/html ROS as noted in the HPI This is a 68-year-old ojndf-shhv-imkewfpr female who presents with bilateral, right worse [...] Blanquita Killian MD [address], [place], [address], [place] [facility] 04/22/2024 12:25:57 05/27/2024 text/html ROS as noted in the HPI She presents for follow-up of her left wrist Dequervain's tenosynovitis, she has tried brace, activity modification, anti-inflammatories with continued pain. She would like to consider a cortisone injection today. Blanquita Killian MD [address], [place], [address], [place] [facility] 05/30/2024 16:18:17 09/29/2024 text/html ROS as noted in the HPI 69-year-old woman presenting with recurrent left de Quervain's recently had injection with Dr. Killian 05/27/2024 resolved majority of the pain. She also has triggering of her right long finger she is interested in discussing treatment options Pop Jones MD [address], [place], [address], [place] [facility] 09/29/2024 14:32:38 03/24/2025 text/html ROS as noted in the HPI She returns for follow-up of her left Dequervain's tenosynovitis and right ring finger pain. She is status post Dequervain's injections on 05/27/2024 and 09/29/2024. She noticed about 3 months of relief from her last injection.She continues to have pain along the radial aspect of the wrist and on the right side in line with the ring finger. Blanquita Killian MD [address], [place], [address], [place] [facility] 03/24/2025 16:20:47 OBGyn Episode No OBEpisode recorded.
--- OUTSIDE RECORDS SUMMARY | 2025-04-06 10:55 | XMS_ITS | Clinical Summary ---
Author Organization [facility] Address [address] [place] [address] Care Team Providers Care Caustic Cresylate Shift Superintendent Name Role Phone Melanie Salguero MD Primary [...] this topic Medical Devices Implanted Type Area Cut Tobacco Bulker Device Identifier Shelf Expiration Date Model / Serial / Lot Knee Fem Bsplt W Pa Stry-Howm 6164-[id number] 552 - [id number] Implanted:Qty: 1 on 12/16/2021 by Rupesh Tai MD at [facility] Right: Knee [facility] [id number] 09/01/2026 5517-F-402 / / [id number] Knee Bsplt Triathlon Ti Sz 4 [place]-[employer]dev[employer]ters 3685-[id number]-[id number] 543 - [id number] Implanted:Qty: 1 on 12/16/2021 by Rupesh Tai MD at [facility] Right: Knee [employer] [facility] [id number] 10/11/2026 5536-B-400 / / [id number] Knee Tib Insrt Cr-X3 [id number] Stry-[employer] 2861-F-[id number] 525 - [id number] Implanted:Qty: 1 on 12/16/2021 by Rupesh Tai MD at [facility] Right: Knee [employer] [facility] [id number] 05/29/2026 5530-G-411 / / [id number] Knee Bsplt Triathlon Ti Sz 3 [place]-Howm 8051-[id number]-[id number] 551 - [id number] Implanted:Qty: 1 on 01/11/2024 by Rupesh Tai MD at [facility] Left: Knee [employer] [facility] [id number] 07/27/2028 5536-B-300 / / [id number] Tibial Bearing Insert Cr 10mm [employer] [id number] - [id number] Implanted:Qty: 1 on 01/11/2024 by Rupesh Tai MD at [facility] Left: Knee [facility] [id number] 03/15/2028 5530-G-310 -E / / [id number] Knee Fem Bsplt W Pa [place] 1554-[id number]-[id number] 555 - [id number] Implanted:Qty: 1 on 01/11/2024 by Rupesh Tai MD at [facility] Left: Knee [facility] [id number] 10/15/2028 5517-F-301 / / [id number] Explanted Type Area Cut Tobacco Bulker Device Identifier Shelf Expiration Date Model / Serial / Lot Knee Tib Insrt Cr-X3 [id number] [employer] [id number] - [id number] Explanted:Qty: 1 on 12/16/2021 at [facility] Right: Knee [facility] [id number] 05/18/2023 5530-G-409 / / [id number] Advance Directives For more information, please contact: [phone] Latest Code Status on File Code Status Date Activated Date Inactivated Comments Full Code 01/11/2024 9:33 AM 01/13/2024 11:24 PM This code status was ascertained in the following way: discussion with patient . Code Status History Code Status Date Activated Date Inactivated Comments Full Code 01/11/2024 7:02 AM 01/11/2024 9:33 AM This code status was ascertained in the following way: discussion with healthcare outside medical sales representative . Full Code 12/16/2021 11:19 AM 12/19/2021 12:34 AM Thi s code status was ascertained in the following way: per living will or healthcare instructions . Full Code 12/16/2021 6:32 AM 12/16/2021 11:19 AM This code status was ascertained in the following way: discussion with patient . Care Teams Caustic Cresylate Shift Superintendent Relationship Specialty Start Date End Date Melanie Salguero MD [address] [place] [address] PCP - General Internal Medicine 08/26/21
--- OUTSIDE RECORDS SUMMARY | 2025-04-06 10:55 | XMS_ITS | Clinical Summary ---
Author Organization [employer] [facility] Address [address] [place] [address] Care Team Providers Care Gold Prospector Name Role Phone Melanie Meade MD Primary [...] 1967 Diabetes: Annual Retina Eye Exam 1967 RSV Immunization Adult Patients (1 - Risk 50-74 years 1-dose series) 2007 Zoster Vaccines (1 of 2) 2007 Pneumococcal Vaccine: 50+ Years (2 of 2 - PCV) 03/08/2011 03/08/2010 Cholesterol Screening (Lipid Panel) 05/29/2022 Falls Risk [...] this topic Medical Devices Implanted Type Area Clinical Interviewer Device Identifier Shelf Expiration Date Model / Serial / Lot Knee Fem Bsplt W Pa [facility] [id number] Implanted:Qty: 1 on 12/16/2021 by Rupesh Tai MD Right: Knee [employer] [id number] 09/01/2026 5517-F-402 / / [id number] Knee Bsplt Triathlon Ti Sz 4 Stry-Howm [id number] Implanted:Qty: 1 on 12/16/2021 by Rupesh Tai MD Right: Knee [employer] [id number] 10/11/2026 5536-B-400 / / [id number] Knee Tib Insrt Cr-X3 [id number] Stry-Howm 6338-[id number] Implanted:Qty: 1 on 12/16/2021 by Rupesh Tai MD Right: Knee [employer] [id number] 05/29/2026 5530-G-411 / / [id number] Knee Bsplt Triathlon Ti Sz 3 Stry-Howm [id number] Implanted:Qty: 1 on 01/11/2024 by Rupesh Tai MD Left: Knee [employer] [id number] 07/27/2028 5536-B-300 / / [id number] Tibial Bearing Insert Cr 10mm Stry-Howm 9660-[id number]-[id number] Implanted:Qty: 1 on 01/11/2024 by Rupesh Tai MD Left: Knee [employer] [id number] 03/15/2028 5530-G-310 -E / / [id number] Knee Fem Bsplt W Pa Stry-Howm [id number] Implanted:Qty: 1 on 01/11/2024 by Rupesh Tai MD Left: Knee [employer] [id number] 10/15/2028 5517-F-301 / / [id number] Procedures Procedure Name Priority Date/Time Associated Diagnosis Comments [facility] SCREENING DIGITAL Routine 10/04/2021 8:52 AM EDT Encounter for screening mammogram for malignant neoplasm of breast from Last 3 Months or Most Recently Relevant to Health Maintenance Results * [facility] SCREENING DIGITAL (10/04/2021 8:52 AM EDT) Anatomical Region Laterality Modality Mammography 10/04/2021 8:02 AM EDT Narrative 10/04/2021 8:52 AM EDT [facility] Diagnostic Imaging Department [address] [place] [address] Patient: ANNEMARIEJACOBBEN Nath D.O.B./Age/Sex: 1955 - 66 - F Unit#: [id number] Location/Status: SPDIMAM/REG CLI Mnemonic/Ordering Site: [facility] Ordering Physician: MELANIE MEADE MD [facility] Screening Digital - 10/04/21 0824 EXAM: [facility] Screening Digital EXAM DATE AND TIME: 10/04/2021 8:25 AM HISTORY: Screening. Sister had breast carcinoma at age 63. COMPARISON: 03/26/20, 01/17/19, 12/28/14 TECHNIQUE: CC and MLO views of both breasts were obtained using full field digital mammography. Bilateral digital breast tomosynthesis was performed in the MLO projection. Computer aided detection with the Sookbox 7.2-H was employed. TISSUE DENSITY: a. The [...] Routine screening mammogram BILATERAL in 1 year. [address]10, 00643 3342F, 7025F Dictating Physician: RERE MARTIN MD Electronically Signed by: RERE MARTIN MD Dic Date/Time: 10/04/21850 Sign date/Time: 10/04/21851 Procedure Note Rere Martin MD - 06/11/2022 [facility] Diagnostic Imaging Department [address] [place] [address] Patient: SHARPEJACOB./Age/Sex: 1955 - 66 - F Unit#: [id number] Location/Status: [facility] Mnemonic/Ordering Site: [facility] Ordering Physician: MELANIE MEADE MD [facility] Screening Digital - 10/04/21823 EXAM: [facility] Screening Digital EXAM DATE AND TIME: 10/04/2021 8:25 AM HISTORY: Screening. Sister had breast carcinoma at age 63. COMPARISON: 03/26/20, 01/17/19, 12/28/14 TECHNIQUE: CC and MLO views of both breasts were obtained using fullfield digital mammography. Bilateral digital breast tomosynthesis was performedin the MLO projection. Computer aided detection with the Sookbox 7.2-Hwas employed. TISSUE DENSITY: a. The breasts [...] Routine screening mammogram BILATERAL in 1 year. 18092, 11658 3342F, 7025F Dictating Physician: RERE MARTIN MD Electronically Signed by: RERE MARTIN MD Dic Date/Time: 10/04/21850 Sign date/Time: 10/04/21851 Melanie Meade MD IMG BI PROCEDURES Final Result from Last 3 Months or Most Recently Relevant to Health Maintenance Care Teams Gold Prospector Relationship Specialty Start Date End Date Melanie Meade MD [address] [place] [id number] PCP - General Internal Medicine 02/13/21
--- OUTSIDE RECORDS SUMMARY | 2025-04-06 10:56 | XMS_ITS | Clinical Summary ---
Author Organization [address] Address [address] [place] [address] Care Team Providers Care Education Program Coordinator Name Role Phone No, Pcp (Do Not [...] DETAILED DIRECTIONS Active lidocaine (LIDODERM) 5 %Indications:Ac linwood sciatica Place 1 patch over 12 hours [...] to complete this topic Insurance TOMER LUIS [facility] MGD [employer] TOMER LUIS [facility] [employer] [facility] [employer] Care Teams Education Program Coordinator Relationship Specialty Start Date End Date No, Pcp (Do Not Change Name) PCP - General 10/25/24
--- OUTSIDE RECORDS SUMMARY | 2025-04-06 10:56 | XMS_ITS | Clinical Summary ---
Author Organization [facility] Address Critical access hospital [address] [place] [address] Phone Care Team Providers Care Closed Circuit Screen Watcher Name Role Phone Melanie Salguero MD Primary [...] [facility] [place] [facility] OUT OF [facility] OUT OF STATE O BLUE CROSS OUT OF STATE O BLUE CROSS OUT OF STATE O Care Teams Closed Circuit Screen Watcher Relationship Specialty Start Date End Date Melanie Salguero MD [address] [place] [address] PCP - General 09/26/20 Additional Source Comments The information contained in this document represents components of the legal health record. It is not the complete legal health record.[facility]
--- OUTSIDE RECORDS SUMMARY | 2025-04-06 10:56 | XMS_ITS | Clinical Summary ---
Author Organization [facility] Address [address] [place] [address] Care Team Providers Care Miller Rod Mill Name Role Phone Unknown Primary Care Provider [phone] Allergies No known active allergies Medications hydroCHLOROthiazi [...] ( season) 2025 07/19/2021, 06/21/2021 RSV Vaccine 50 years and older and Patients (1 - 1-dose 75+ series) 2032 Hepatitis B Vaccines Aged Out No long er eligible based on patient's age to complete this topic Insurance [employer] MGD MEDICARE [facility] Care Teams Miller Rod Mill Relationship Specialty Start Date End Date Unknown Unknow Provider Address PCP - General 12/09/22
--- OUTSIDE RECORDS SUMMARY | 2025-04-06 10:56 | XMS_ITS | Patient Health Record ---
Author Organization [facility] Address [address] [place] [address] Care Team Providers Care Meat Team Member Name Role Phone VIRGINIE DE LA GARZA Unavailable [phone] Allergies No Known Allergies Reason For Referral [...] Status Risk Notes Problem Vitamin D deficiency (14616232) Vitamin D deficiency, unspecified (E55.9) Active confirmed Problem Morbid obesity (disorder) (473773547) Morbid (severe) obesity due to excess calories (E66.01) Active confirmed Problem Obesity due to exces s calories (208973724) Other obesity due to excess calories (E66.09) Active confirmed Problem Hyperlipidaemia (76518126) Hyperlipidemia, unspecified hyperlipidemia type (E78.5) Active confirmed Problem Hyperlipoproteinemia (2037331) Acquired hyperlipoproteinemia (E78.5) Active confirmed Problem Sleep apnea (23481839) Sleep apnea, unspecified type (G47.30) Active confirmed Problem Body mass index 35.0 0 to 39.99 (637577512372634) Body mass index [BMI] 39.0-39.9, adult (Z68.39) Active confirmed Problem Body mass index 40+ - severely obese (330841461) Body mass index [BMI] 45.0-49.9, adult (Z68.42) Active confirmed Problem Primary hypertension (83464429) Primary hypertension (I10) Active confirmed Plan Of Treatment Pending Test Test Name Order Date EKG 11/20/2021 Insurance Providers Payer Name Payer Address Payer Phone Subscriber Number Group Number Insured Name Patient Relationship to Insured Coverage Start Date Coverage End Date [employer] [address] [address] [place] [address] [phone] [id number] Coleen Machado Self - patient is the insured for life [address] [place] [address] [id number] Coleen Machado Self - patient is the insured Medications Administered Medication Instructions Date of Administration Dosage Notes MICC B12 INJECTION 03/18/2021 lot # [id number] MICC B12 INJECTION 12/25/2022 1 mg Lot [...]
== END 2025-04-06 10:03 | disposition home or self-care (01) ==
PROVIDERS: PCP Internal Medicine; Visit Provider Hospitalist
DX: R05.3 Chronic cough (principal); G47.33 Obstructive sleep apnea (adult) (pediatric); J45.40 Moderate persistent asthma, uncomplicated; J44.89 Other specified chronic obstructive pulmonary disease; G47.34 Idiopathic sleep related nonobstructive alveolar hypoventilation
CPT/HCPCS: 99214; G2211

== ENCOUNTER → 2025-04-06 09:32 | Outpatient (BNVA) | payer MEDICARE, OTHER, SELFPAY | PROVIDERS: PCP Internal Medicine; Visit Provider Hospitalist | DX: J45.40 Moderate persistent asthma, uncomplicated (principal); J44.89 Other specified chronic obstructive pulmonary disease; G47.34 Idiopathic sleep related nonobstructive alveolar hypoventilation; G47.33 Obstructive sleep apnea (adult) (pediatric); R05.3 Chronic cough | CPT/HCPCS: 99212 ==

== ENCOUNTER 2025-04-24 08:10 | Outpatient (AMB) | payer MEDICARE, OTHER, SELFPAY ==
--- OUTSIDE RECORDS SUMMARY | 2025-04-24 08:23 | XMS_ITS | Clinical Summary ---
Author Organization [facility] Address [address] [place] [address] Care Team Providers Care Director It Project Name Role Phone Unknown Primary Care Provider [phone] Allergies No known active allergies Medications hydroCHLOROthiazi [...] complete this topic Insurance AETNA MGD MEDICARE [facility] Care Teams Director It Project Relationship Specialty Start Date End Date Unknown Unknow Provider Address PCP - General 12/09/22
--- OUTSIDE RECORDS SUMMARY | 2025-04-24 08:23 | XMS_ITS | Data Portability ---
Author Organization [facility] Albar[facility] Address [address] [place] [address] Care Team Providers Care Yard Conductor Name Role Phone MAGO SHEN Primary Care [...] more view 2023 024 [email or web address] [facility], [address], [place], [address], 11/01/202 4 13:17:46 XR, wrist, 3 or more view 2023 024 [facility], [address], [address], [place], [address], 4 13:17:46 Medication Orders lidocain e (PF) 10 mg/mL (1 %) injectio n solution 2024 025 [id number], [address] [place], [address], 5 16:34:58 triamcin olone acetonid e 40 mg/mL suspensi on for injectio n 2024 025 [id number], [address] [place], [address], 5 16:34:58 lidocain e (PF) 10 mg/mL (1 %) injectio n solution 2024 025 [id number], [address] [place], [address], 5 16:34:58 triamcin olone acetonid e 40 mg/mL suspensi on for injectio n 2024 025 [id number], [address] [place], [address], 5 16:34:58 lidocain e (PF) 10 mg/mL (1 %) injectio n solution 2024 025 [email or web address] Not available 5 08:40:43 triamcin olone acetonid e 40 mg/mL suspensi on for injectio n 2024 025 [email or web address] Not available 5 08:40:43 lidocain e (PF) 10 mg/mL (1 %) injectio n solution 2023 024 [email or web address] Not available 4 11:49:48 triamcin olone acetonid e 40 mg/mL suspensi on for injectio n 2023 024 [email or web address] Not available 4 11:49:48 diclofen ac 1 % topical gel 2023 025 [id number], [address] [facility] [address] [facility] [place], [address], 5 14:12:05 Patient TargetsNo targets recorded. Patient Instructions Encounter Date Encounter Id Patient Instructions Last Modified By Organization Details Last Modified Time 04/22/2024 [id number] 3 views of bilateral wrist were ordered and reviewed today, this demonstrates no acute findings. 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 Otherwise anatomic alignment of the wrist and carpal bones. [email or web address] Not available 04/22/2024 12:24:00 03/24/2025 [id number] You have been provided with a cortisone [...] Acquired trigger finger of right middle finger 16828495064 9105 Active 2022 Ayden Khan MD [address], [place], [address] , [place] [facility] 3 11:23:45 Osteoarth ritis of left knee joint 99490842911 9109 Active 2022 AURA REYES PA-C [address], [place], [address] , [place] [facility] 3 11:04:02 Obstructi ve sleep apnea syndrome 76777834 Active 2023 Sleep apnea, obstructi ve Not Available [facility] 5 23:22:41 Osteoporo sis 72198873 Active 2023 Osteoporo sis Not Available [facility] 5 23:22:42 Gastroeso phageal reflux disease 579579512 Active 2023 GERD (gastroes ophageal reflux disease) Not Available [facility] 5 23:22:43 Hyperlipi demia 56940740 Active 2023 Hyperlipi demia Not Available [facility] 5 23:22:43 Asthma 146279045 Active 2023 Asthma Not Available [facility] 5 23:22:44 Hypertens tere disorder 79637419 Active 2023 Hypertens ion Not Available [facility] 5 23:22:44 Anemia 345339776 Active 2023 Anemia - Overview: Formattin g of this note might be different from the original. iron transfusi on weekly in 2103 Not Available [facility] 5 23:22:45 Urinary incontine nce 251207483 Active 2023 Urinary incontine nce Not Available [facility] 5 23:22:42 Periphera l nerve disease 913077709 Active 2023 Periphera l neuropath y - Overview: Formattin g of this note might be different from the original. 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 Procedures Surgical History Date Name Laterality Status Provider Name and Address Organization Details Recorded Time 03/24/20 25 LES trigger finger/De Quervain's injection completed Colleen Bowles [facility] 03/24/2025 14:02:20 03/24/20 25 AJR trigger finger/De Quervain's injection completed Colleen Bowles [facility] 03/24/2025 14:02:29 09/30/19 25 LES trigger finger/De Quervain's injection completed Pop Jones MD [address], [place], [address], [place] [facility] 09/29/2024 14:30:55 05/27/20 24 LES trigger finger/De Quervain's injection completed Blanquita Killian MD [address], [place], [address], [place] [facility] 05/30/2024 16:16:50 01/11/20 24 TOTAL KNEE ARTHROPLASTY (SURG) completed Macie Hopson [place] - [facility] 01/12/2024 09:00:37 10/02/19 24 TOSHIA Knee Injection completed AURA REYES PA-C [address], [place], [address], [place] [facility] 10/02/2023 11:25:23 05/19/20 23 TOSHIA Knee Injection completed AURA REYES PA-C [address], [place], [address], [place] [facility] 05/19/2023 17:01:18 02/27/20 23 TOSHIA Knee Injection completed AURA REYES PA-C [address], [place], [address], [place] [facility] 02/26/2023 11:02:17 12/02/19 23 TOSHIA Knee Injection completed AURA REYES PA-C [address], [place], [address], [place] [facility] 12/01/2022 10:09:03 arthroplasty of knee completed Paula Beckford [place] - [facility] 12/01/2022 09:53:12 delivery completed Paula Beckford [facility] - [facility] 12/01/2022 09:53:19 Imaging Results None recorded. Procedure Notes None recorded. Medical Equipment None Reported. Allergies Allergen ID Allergen Name Allergen Category Reaction Reaction Severity Criticality Documentation Date Start Date Code Code System Note Provider Name and Address Organization Details Recorded Time 28119 metformin medicatio n Not available Not available Not available 03/14/20252023 5229 RxNorm React ion: Bonny veliz, lillie ity: Unkno wn;Ot her react ion(s ): bonny veliz Not Available Critical access hospital 01:16:15 Medications Name Sig Start Date Stop [...] Available Not Available Not Available Josr Edmond [facility] spacer active Not Available Not Available [...] cm Annie Britt [facility] 09/29/2024 14:12:22 Date Recorded Body height Provider Name an d Address Organization Details Last Updated DateTime 03/29/[address]24 [address] [facility] 03/29/2024 13:44:15 Date Recorded Body height Body mass index (BMI) Body weight Provider Name and Address Organization Details Last Updated DateTime 04/22/2024 165.1 cm 38.3 kg/m2 084720.[address] [facility] 04/22/2024 11:20:11 Social History None recorded. [...] 50 mcg/0.25mL dose 06/21/2021 completed Not Available Critical access hospital 06:10:58 COVID-19, mRNA, LNP-S, PF, 100 mcg/0.5mL dose or 50 mcg/0.25mL dose 07/19/2021 completed Not Available Critical access hospital 06:10:58 Past Encounters Encounter ID Performer Location Encounter Start Date Encounter Closed Date Diagnosis/Indication Diagnosis SNOMED-CT Code Diagnosis ICD10 Code Diagnosis IMO Codes Diagnosis Note [id number] MARILEE COLLINS [place] [id number] 12/01/2022 09:20:27 12/01/2022 10:02:15 Osteoarthritis of right knee joint 8988114829 95227 M17.11 [id number] MD [place]EN [place] [id number] 12/03/2022 10:42:28 12/03/2022 11:16:10 Pain in finger of right hand 4536767170 87909 M79.644 Acquired t customer retention representative finger of right middle finger 3085432736 69095 M65.331 [id number] MARILEE COLLINS [place] [id number] 02/26/2023 09:48:44 02/26/2023 10:57:50 Osteoarthritis of left knee joint 2740121936 16542 M17.12 [id number] MARILEE COLLINS [address] [address] 05/19/2023 09:58:09 05/19/2023 10:46:46 Osteoarthritis of left knee joint 6062692249 89061 M17.12 [id number] MARILEE GOLDBERG [address] [address] 06/23/2023 13:54:40 06/23/2023 14:27:57 Osteoarthritis of left knee joint 5305623646 68729 M17.12 [id number] MARILEE COLLINS [facility] [address] [place] [address] [place] [address] 10/02/2023 10:29:22 10/02/2023 11:23:55 Osteoarthritis of left knee joint 9216431466 43667 M17.12 [id number] MD RISA Quinonez [address] [address] 10/16/2023 13:19:48 10/16/2023 13:50:13 Osteoarthritis of left knee joint 7355676942 61249 M17.12 Arthritis of knee 801267 002 M13.869 [id number] MARILEE GOLDBERG [address] [address] 01/07/2024 09:07:02 01/07/2024 15:41:48 Osteoarthritis of left knee joint 1826927067 74041 M17.12 [id number] MARILEE GOLDBERG [address] [place] [address] [place] [address] 01/27/2024 09:39:09 01/27/2024 10:04:22 History of total knee arthroplasty 6052916684 105 Z96.652 Additional diagnosis detail: Status [place]ac[place] t [id number] MD RISA Quinonez [address] [address] 02/23/2024 12:41:43 02/23/2024 13:02:10 History of total knee arthroplasty 1493339908 105 Z96.652 [id number] MD RISA Quinonez [address] [address] 03/29/2024 13:29:02 03/29/2024 13:46:47 History of total knee arthroplasty 0889253885 105 Z96.652 [id number] Blanquita Killian MD [facility] [place] [id number] 04/22/2024 11:02:24 04/22/2024 11:59:00 Pain of right wrist 6726450137 54391 M25.531 147019 Pain of left wrist 58358 10529 94002 M25.532 911278 Osteoarthr itis of metacarpophalangeal joint of finger 682345855 M19.042 3763848298 Radial sty loid tenosynovitis 31680718 M65.4 738809 Triggering of digit 2399 07790 M65.572 [id number] Blanquita Killian MD [facility] [place] [id number] 05/27/2024 14:52:40 05/27/2024 15:44:50 Radial styloid tenosynovitis 27153892 M65.4 [id number] Pop Jones MD [facility] [place] [id number] 09/29/2024 14:02:31 09/29/2024 14:39:31 Triggering of digit 160932991 M65.747 3890675 Radial sty loid tenosynovitis 98288447 M65.4 973150 [id number] Blanquita Killian MD [facility] [place] [id number] 03/24/2025 13:26:20 03/24/2025 14:28:27 Radial styloid tenosynovitis 74133993 M65.4 441046 Acquired t customer retention representative finger of right middle finger 3290809854 22532 M65.331 Health Concerns Section Related Observation LastModified by Organization Detai ls LastModified Time None Recorded Concern Status LastModified by Organization Details LastModified Time None Recorded Advance Directives Directive None Recorded Payers Insurance Date Sequence Insurance Name Policy Number Policy Lassiter Covered Member ID Lassiter Member ID Guarantor Name 03/24/2025 1 [employer] (MEDICARE REPLACEMENT /ADVANTAGE - PPO) [id number] 1 Coleen Machado [id number] Gino Machado 03/23/2025 2 FOR LIFE ( - MEDICARE SUPPLEMENT) Gino Machado [id number] Gino Machado Notes Date Note Type Note Provider Name and Address Organization Details Recorded Time 04/22/2024 text/html ROS as noted in the HPI This is a 68-year-old fhnoz-djrx-bcaupakw female who presents with bilateral, right worse [...] Blanquita Killian MD [address], [place], [address], [place] [facility] 04/22/2024 12:25:57 05/27/2024 text/html ROS as noted in the HPI She presents for follow-up of her left wrist Dequervain's tenosynovitis, she has tried brace, activity modification, anti-inflammatories with continued pain. She would like to consider a cortisone injection today. Blanquita Killian MD [address], [place], [address], [place] [facility] 05/30/2024 16:18:17 09/29/2024 text/html ROS as noted in the HPI 69-year-old woman presenting with recurrent left de Quervain's recently had injection with Dr. Killian 05/27/2024 resolved majority of the pain. She also has triggering of her right long finger she is interested in discussing treatment options Pop Jones MD [address], [place], [address], [place] [facility] 09/29/2024 14:32:38 03/24/2025 text/html ROS as [...] Blanquita Killian MD [address], [place], [address], [place] [facility] 03/24/2025 16:20:47 OBGyn Episode No OBEpisode recorded.
--- OUTSIDE RECORDS SUMMARY | 2025-04-24 08:23 | XMS_ITS | Clinical Summary ---
Author Organization [facility] Address [address] [place] [address] Care Team Providers Care Hatchery Supervisor Name Role Phone Melanie Salguero MD Primary [...] this topic Medical Devices Implanted Type Area Corporate Vp Advertising & Online Device Identifier Shelf Expiration Date Model / Serial / Lot Knee Fem Bsplt W Pa Stry-Howm 6466-Q-[id number] 552 - [id number] Implanted:Qty: 1 on 12/16/2021 by Rupesh Tai MD at [facility] Right: Knee [employer] [id number] 09/01/2026 5517-F-402 / / [id number] Knee Bsplt Triathlon Ti Sz 4 Stry-HowSpartan Race 5624-T-198-552 543 - [id number] Implanted:Qty: 1 on 12/16/2021 by Rupesh Tai MD at [facility] Right: Knee [employer] [id number] 10/11/2026 5536-B-400 / / [id number] Knee Tib Insrt Cr-X3 [id number] Stry-HowSpartan Race 7423-A-894-631 525 - [id number] Implanted:Qty: 1 on 12/16/2021 by Rupesh Tai MD at [facility] Right: Knee [employer] [id number] 05/29/2026 5530-G-411 / / [id number] Knee Bsplt Triathlon Ti Sz 3 Stry-Howm 3381-K-234-642 551 - [id number] Implanted:Qty: 1 on 01/11/2024 by Rupesh Tai MD at [facility] Left: Knee [employer] [id number] 07/27/2028 5536-B-300 / / [id number] Tibial Bearing Insert Cr 10mm [facility] 5931-F-768-E-7 55389 - [id number] Implanted:Qty: 1 on 01/11/2024 by Rupesh Tai MD at [facility] Left: Knee [employer] [id number] 03/15/2028 5530-G-310 -E / / [id number] Knee Fem Bsplt W Pa Stry-HowSpartan Race 1902-Z-881-645 555 - [id number] Implanted:Qty: 1 on 01/11/2024 by Rupesh Tai MD at [facility] Left: Knee [employer] [id number] 10/15/2028 5517-F-301 / / [id number] Explanted Type Area Corporate Vp Advertising & Online Device Identifier Shelf Expiration Date Model / Serial / Lot Knee Tib Insrt Cr-X3 [id number] [facility] 8723-H-656-631 524 - [id number] Explanted:Qty: 1 on 12/16/2021 at [facility] Right: Knee [employer] [id number] 05/18/2023 5530-G-409 / / [id number] Advance Directives For more information, please contact: [phone] Latest Code Status on File Code Status Date Activated Date Inactivated Comments Full Code 01/11/2024 9:33 AM 01/13/2024 11:24 PM This code status was ascertained in the following way: discussion with patient . Code Status History Code Status Date Activated Date Inactivated Comments Full Code 01/11/2024 7:02 AM 01/11/2024 9:33 AM This code status was ascertained in the following way: discussion with healthcare automotive sales representative . Full Code 12/16/2021 11:19 AM 12/19/2021 12:34 AM Thi s code status was ascertained in the following way: per living will or healthcare instructions . Full Code 12/16/2021 6:32 AM 12/16/2021 11:19 AM This code status was ascertained in the following way: discussion with patient . Care Teams Hatchery Supervisor Relationship Specialty Start Date End Date Melanie Salguero MD [address] [place] [address] PCP - General Internal Medicine 08/26/21
--- OUTSIDE RECORDS SUMMARY | 2025-04-24 08:23 | XMS_ITS | Clinical Summary ---
Author Organization [address] Address [address] [place] [id number] Care Team Providers Care Ibm Websphere Commerce Developer Name Role Phone No, Pcp (Do Not [...] to complete this topic Insurance [facility] [employer] [facility] [employer] [facility] [employer] Care Teams Ibm Websphere Commerce Developer Relationship Specialty Start Date End Date No, Pcp (Do Not Change Name) PCP - General 10/25/24
--- OUTSIDE RECORDS SUMMARY | 2025-04-24 08:23 | XMS_ITS | Clinical Summary ---
Author Organization [facility] Address [facility] [address] [place] [address] Phone Care Team Providers Care Sifter Operator Name Role Phone Melanie Salguero MD Primary [...] OF STATE [facility] OUT OF STATE O BL[facility] OUT OF STATE O BLUE CROSS OUT OF STATE O BLUE CROSS OUT OF STATE O Care Teams Sifter Operator Relationship Specialty Start Date End Date Melanie Salguero MD [address] [place] [address] PCP - General 09/26/20 Additional Source Comments The information contained in this document represents components of the legal health record. It is not the complete legal health record.[facility]
--- OUTSIDE RECORDS SUMMARY | 2025-04-24 08:23 | XMS_ITS | Clinical Summary ---
Author Organization [facility] Address [address] [place] [address] Care Team Providers Care Lead Security Officer Name Role Phone Melanie Meade MD Primary [...] this topic Medical Devices Implanted Type Area Attending Ambulatory Care Device Identifier Shelf Expiration Date Model / Serial / Lot Knee Fem Bsplt W Pa [facility] [id number] Implanted:Qty: 1 on 12/16/2021 by Rupesh Tai MD Right: Knee [employer] [id number] 09/01/2026 5517-F-402 / / [id number] Knee Bsplt Triathlon Ti Sz 4 Stry-Howm 3624-V-[id number] 543 Implanted:Qty: 1 on 12/16/2021 by Rupesh Tai MD Right: Knee [employer] [id number] 10/11/2026 5536-B-400 / / [id number] Knee Tib Insrt Cr-X3 [id number] Stry-Howm 7029-E-140-631 525 Implanted:Qty: 1 on 12/16/2021 by Rupesh Tai MD Right: Knee [employer] [id number] 05/29/2026 5530-G-411 / / [id number] Knee Bsplt Triathlon Ti Sz 3 Stry-Howm 3373-M-113-642 551 Implanted:Qty: 1 on 01/11/2024 by Rupesh Tai MD Left: Knee [employer] [id number] 07/27/2028 5536-B-300 / / [id number] Tibial Bearing Insert Cr 10mm Stry-Howm 7762-F-336-E-7 [id number] Implanted:Qty: 1 on 01/11/2024 by Rupesh Tai MD Left: Knee [employer] [id number] 03/15/2028 5530-G-310 -E / / [id number] Knee Fem Bsplt W Pa Stry-Howm 7276-P-345-645 555 Implanted:Qty: 1 on 01/11/2024 by Rupesh Tai MD Left: Knee [employer] [id number] 10/15/2028 5517-F-301 / / [id number] Procedures Procedure Name Priority Date/Time Associated Diagnosis Comments [facility] SCREENING DIGITAL Routine 10/04/2021 8:52 AM EDT Encounter for screening mammogram for malignant neoplasm of breast from Last 3 Months or Most Recently Relevant to Health Maintenance Results * [facility] SCREENING DIGITAL (10/04/2021 8:52 AM EDT) Anatomical Region Laterality Modality Mammography 10/04/2021 8:02 AM EDT Narrative 10/04/2021 8:52 AM EDT [facility] Diagnostic Imaging Department [address] [place] [phone] Patient: ANNEMARIEJACOBBEN Nath D.O.B./Age/Sex: 1955 - 66 - F Unit#: [id number] Location/Status: SPDIMAM/REG CLI Mnemonic/Ordering Site: [facility] Ordering Physician: MELANIE MEADE MD [facility] Screening Digital - 10/04/21 0824 EXAM: [facility] Screening Digital EXAM DATE AND TIME: 10/04/2021 8:25 AM HISTORY: Screening. Sister had breast carcinoma at age 63. COMPARISON: 03/26/20, 01/17/19, 12/28/14 TECHNIQUE: CC and MLO views of both breasts were obtained using full field digital mammography. Bilateral digital breast tomosynthesis was performed in the MLO projection. Computer aided detection with the [employer] 7.2-H was employed. TISSUE DENSITY: a. The [...] Routine screening mammogram BILATERAL in 1 year. [address]010, 22528 3342F, 7025F Dictating Physician: RERE MARTIN MD Electronically Signed by: RERE MARTIN MD Dic Date/Time: 10/04/21850 Sign date/Time: 10/04/21851 Procedure Note Rere Martin MD - 06/11/2022 [facility] Diagnostic Imaging Department [address] [place] [address] Patient: SHARPEJACOB./Age/Sex: 1955 - 66 - F Unit#: [id number] Location/Status: [facility] Mnemonic/Ordering Site: [facility] Ordering Physician: MELANIE MEADE MD [facility] Screening Digital - 10/04/21823 EXAM: [facility] Screening Digital EXAM DATE AND TIME: 10/04/2021 8:25 AM HISTORY: Screening. Sister had breast carcinoma at age 63. COMPARISON: 03/26/20, 01/17/19, 12/28/14 TECHNIQUE: CC and MLO views of both breasts were obtained using fullfield digital mammography. Bilateral digital breast tomosynthesis was performedin the MLO projection. 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 TISSUE DENSITY: a. The breasts [...] Routine screening mammogram BILATERAL in 1 year. [address]805, [address]803 3342F, 7025F Dictating Physician: RERE MARTIN MD Electronically Signed by: RERE MARTIN MD Dic Date/Time: 10/04/21850 Sign date/Time: 10/04/21851 Melanie Meade MD IMG BI PROCEDURES Final Result from Last 3 Months or Most Recently Relevant to Health Maintenance Care Teams Lead Security Officer Relationship Specialty Start Date End Date Melanie Meade MD [address] [place] [phone] PCP - General Internal Medicine 02/13/21
--- NOTE | 2025-04-24 10:48 | A.OFFVIS_ITS ---
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 BMI 39.2 Allergies No Known Allergies (No Known Allergies*) Allergy (Verified 04/24/25 10:48) Medication List - Last Reconciled 04/24/25 by Valentino Lucas MD albuterol sulfate 90 mcg/actuation 2 puffs inhalation Q4H PRN albuterol sulfate 1 vial inhalation Q4H PRN alendronate (Fosamax) 70 mg PO QWEEK atenolol 25 mg PO DAILY fluticasone propion-salmeterol 115-21 mcg/actuation (Advair HFA) 2 puffs inhalation Q12H 30 days hydrochlorothiazide 1 tab PO DAILY inhalational spacing device (Aerochamber MV spacer) As directed methimazole 5 mg PO DAILY montelukast 1 tab PO DAILY prednisone PO daily; Take 2 tabs daily x 5 days, then 1 tablet daily x 5 days 10 days prednisone PO daily; Take 6 tabs daily x 3 days, then 5 tabs x 3 days, then 4 tabs x 3 days, then 3 tabs x 3 days, then 2 tabs daily x 3 days, then 1 tab x 3 days to complete. 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 BMI 39.2: Details: Start time: 10.40am, End time: 11.27am ?I spent 42 minutes speaking with the patient on the phone plus an additional 5 minutes reviewing and updating records for a total of 47 minutes HPI Comments Details: Previous weight loss efforts: WW, Phentermine 37.5mg, Mounjaro, Medi-fast Wakes up: 5am, Sleeps: 11pm Breakfast: skips Lunch: 12pm (salad with chicken, or Fairlife shake) Dinner: 6pm (chicken) Snacks: 4pm (fruits or chips, or nuts), 7pm (tangerines, apples) Exercise: has stationary bike (tracks calories) Beverages: Coffee x2/d (cream), Tea (hot: 2 cups/d with splenda), Soda: none, Juice: none, ETOH: none PFSH Medical History (Updated 04/24/25 @ 11:12 by Valentino Lucas MD) Non-insulin dependent type 2 diabetes mellitus Osteoporosis Hypertension Graves disease BMI 37.0-37.9, adult Nocturnal hypoxia Asthma-COPD overlap syndrome ADTIYA (obstructive sleep apnea) Cough Osteoarthritis Obesity Cervical radiculopathy Constipation Asthma Pre-diabetes GERD (gastroesophageal reflux disease) Iron deficiency anemia Urge incontinence ADITYA on CPAP Surgical History (Updated 04/11/25 @ 14:54 by Kelli Arvizu CMA) Hx of total knee replacement History of ankle surgery Hx of section Hx of colonoscopy Family History (Updated 04/11/25 @ 14:56 by Kelli Arvizu CMA) Mother Asthma Diabetes COPD (chronic obstructive pulmonary disease) Father No problems noted. Brother Diabetes Kidney disease Sister Diabetes Polymyalgia Brother HIV (human immunodeficiency virus infection) Social History (Updated 04/11/25 @ 14:57 by Kelli Arvizu CMA) Are you a primary medicare compliance auditor to a significant other at home: No Do you presently have visiting nurse or other home services: No Alcohol intake: never Patient Tobacco Use Status: Never used Tobacco Telehealth Telehealth Telehealth Platform: Telephone Location of provider rendering services: practice address Location of patient: address on file Patient Identification confirmed using: Name, : Yes Telehealth method: voice only Patient verbally consented to treatment: Yes Patient verbally consented to billing insurance company: Yes Patient informed of any privacy concerns related to visit: Yes Minutes spent on Phone/Video with Pt.: 47 Assessment & Plan Assessment & Plan (1) Obesity: Code(s): E66.9 - Obesity, unspecified Category: Medical Qualifiers: Obesity type: due to excess calories Obesity classification: adult class 2 (BMI 35 - 39.9) Serious obesity comorbidity presence: with serious comorbidity Body mass index: BMI 37.0-37.9 Qualified Code(s): E66.01 - Morbid (severe) obesity due to excess calories; Z68.37 - Body mass index [BMI] 37.0- 37.9, adult Plan: 1.? Plan for lap sleeve gastrectomy. If diaphragmatic or ventral hernias are present at time of surgery, these will be repaired laparoscopically as well. I emphasized the importance of close follow-up, adherence to instructions and good communication. The surgery does not replace the need to change your lifestlyle which is the cause of the obesity problem. The surgery provides the motivation to try again to change your lifestyle, it reduces the appetite and make the transition to a better lifestyle easier and doubles the amount of weight you would lose compared to doing the lifestyle change without the surgery. You will need to be on a liquid diet with protein shakes for 2 weeks before surgery to maximize weight loss and boost your nutritional status to recover better from surgery and also for the first two weeks after surgery to let the stomach heal before we introduce other foods. After the first 2 weeks we will introduce protein bars and soft foods like scrambled eggs, cottage cheese and yogurt and after the 6th week will introduce meat, fish and cooked vegetables in small amounts. Over time you should be able to eat everything in small amounts. Side effects like nausea, vomiting, heartburn or abdominal pain are not common in the practice unless you are not following in the practice. This operation requires lifetime commitment to following in our practice and communication with me. You will much less weight and experience side effects if you don?t communicate or not following in the practice. Complications are rare and in our practice is about 1/10 of the national average. However, you can develop bleeding that may require transfusion (hasn?t happened for year in the practice), you may from complications (we did not have any deaths in the practice) and infections. Infections are usually a result of breakdown in communication or not understanding or following directions correctly. They are difficult to treat, they can happen during the first 6 weeks, they may require to be in the hospital for weeks or even months, not being able to eat by mouth and you may have drains and surgeries to try and correct the issue. Other risks and complications include possible conversion to an open procedure, leaks, small bowel obstruction, blood clots, cardiac, or pulmonary complications, as termination clerk complications such as ulcers, insufficient weight loss and vitamin deficiencies. 2. Nutritional counseling. Start with one premade PREMIER protein (buy at [employer] or [employer]) shake (mix 4oz of Premier mixed with 4oz low fat unsweetened almond milk) at 7am-9am, one protein bar (Celebrate protein bar, buy online with the link I sent you) at 10am-12pm, another premade PREMIER protein shake (mix 4oz of Premier mixed with 4oz low fat unsweetened almond milk each) at 1pm-3pm, another Celebrate protein bar,? dinner at 7pm (8 forks of protein and 8 forks of salad/vegetables), another premade PREMIER protein shake (mix 4oz of Premier mixed with 4oz low fat unsweetened almond milk each) at 9pm-11pm. So you do 3 protein shakes, 2 protein bars and one meal per day. Meal to include lean meat (beef, fish, pork, turkey, chicken), or slovenian yogurt, or egg whites, or beans with a salad with olive oil and fruits (berries, pears, apples, kiwi). Avoid salt, breads, potatoes, rice, pasta, desserts. 3. Each shake would be drunk slowly, like coffee in a period of 2 hours. 4. Cut each bar in 4 pieces and eat each piece in 30min ?to make each bar last 2 hours. 5. I emphasized the importance of measuring accurately the food portion and measure it when serving the food in plate 6. The meal portions include 8 full-size forks of meat and 8 full-size forks of salad. You always eat the meat portion but you can replace up to 4 forks for salad/vegetables with rice, potatoes or pasta, or a fruit ?if you like. The less you do it the better weight loss will be. 7. One full-size fork is what it can be scooped on the fork without falling aside and not what can be bit with the fork. Use regular forks like those you find in a typical restaurant. 8.? Please buy the body composition scale we discussed and send me weight measurements as soon as possible and then once a week. Always include your diet and exercise plan. 9. Start stationary bike at a resistance level of 0.0 Increase level by 1.0 every 3 min to a max level of 6.0. Stay at this level for 3 min and then return to level 0.0 and repeat same steps until 300 calories are burned. Velocity target is 12mph and heart rate is 145 bpm. Goal is to burn 2000 calories per week on exercise 10. Walk outside only in addition to the bike 11. Goal is to lose at least 1.5-2lbs per week 12. Goal to lose 10% of your weight before surgery, which is about 23lbs. Ultimate weight goal: 205lbs before surgery 13. Please follow the diet plan exactly without any change. If you don't like something about the plan or you feel hungry you need to communicate with me so I can help you revise the plan. You should not change the plan yourself 14. To be scheduled for EGD to assess the stomach's anatomy. The possibility of biopsies was discussed. Patient needs to avoid use of NSAIDs and aspirin for 1 week prior to EGD. You must be on liquids only the day before your endoscopy. Risks of perforation and bleeding was discussed with the patient. This will be an outpatient procedure with IV sedation. 15. Emphasized the importance of checking his blood glucose levels frequently and daily and to report to me any blood glucose below 100, so I can adjust his insulin and prevent hypoglycemic episodes 16. Emphasized the importance of monitoring the blood pressure daily in am when wakes up and two more times throughout the day. If systolic blood pressure is 110 mmHg, or less I explained to the patient that needs to notify me. Also I explained the symptoms of orthostatic hypotension (dizziness and lightheadedness) for which the patient also needs to notify me. Orders: Orders Hemoglobin A1c Today E05.00 - Thyrotoxicosis with diffuse goiter without thyrotoxic crisis or storm, E11.9 - Type 2 diabetes mellitus without complications, E66.9 - Obesity, unspecified, G47.33 - Obstructive sleep apnea (adult) (pediatric), I10 - Essential (primary) hypertension, J45.40 - Moderate persistent asthma, uncomplicated, Z68.37 - Body mass index [BMI] 37.0-37.9, adult Complete Blood Count Auto Diff Today E05.00 - Thyrotoxicosis with diffuse goiter without thyrotoxic crisis or storm, E11.9 - Type 2 diabetes mellitus without complications, E66.9 - Obesity, unspecified, G47.33 - Obstructive sleep apnea (adult) (pediatric), I10 - Essential (primary) hypertension, J45.40 - Moderate persistent asthma, uncomplicated, Z68.37 - Body mass index [BMI] 37.0- 37.9, adult Lipid Panel Today E05.00 - Thyrotoxicosis with diffuse goiter without thyrotoxic crisis or storm, E11.9 - Type 2 diabetes mellitus without complications, E66.9 - Obesity, unspecified, G47.33 - Obstructive sleep apnea (adult) (pediatric), I10 - Essential (primary) hypertension, J45.40 - Moderate persistent asthma, uncomplicated, Z68.37 - Body mass index [BMI] 37.0-37.9, adult IRON PROFILE Today E05.00 - Thyrotoxicosis with diffuse goiter without thyrotoxic crisis or storm, E11.9 - Type 2 diabetes mellitus without complications, E66.9 - Obesity, unspecified, G47.33 - Obstructive sleep apnea (adult) (pediatric), I10 - Essential (primary) hypertension, J45.40 - Moderate persistent asthma, uncomplicated, Z68.37 - Body mass index [BMI] 37.0-37.9, adult Comprehensive Met. Panel Today E05.00 - Thyrotoxicosis with diffuse goiter without thyrotoxic crisis or storm, E11.9 - Type 2 diabetes mellitus without complications, E66.9 - Obesity, unspecified, G47.33 - Obstructive sleep apnea (adult) (pediatric), I10 - Essential (primary) hypertension, J45.40 - Moderate persistent asthma, uncomplicated, Z68.37 - Body mass index [BMI] 37.0-37.9, adult Zinc Today E05.00 - Thyrotoxicosis with diffuse goiter without thyrotoxic crisis or storm, E11.9 - Type 2 diabetes mellitus without complications, E66.9 - Obesity, unspecified, G47.33 - Obstructive sleep apnea (adult) (pediatric), I10 - Essential (primary) hypertension, J45.40 - Moderate persistent asthma, uncomplicated, Z68.37 - Body mass index [BMI] 37.0-37.9, adult TSH reflex Free T4 Today E05.00 - Thyrotoxicosis with diffuse goiter without thyrotoxic crisis or storm, E11.9 - Type 2 diabetes mellitus without complications, E66.9 - Obesity, unspecified, G47.33 - Obstructive sleep apnea (adult) (pediatric), I10 - Essential (primary) hypertension, J45.40 - Moderate persistent asthma, uncomplicated, Z68.37 - Body mass index [BMI] 37.0-37.9, adult US abdomen comp w elastography Today E05.00 - Thyrotoxicosis with diffuse goiter without thyrotoxic crisis or storm, E11.9 - Type 2 diabetes mellitus without complications, E66.9 - Obesity, unspecified, G47.33 - Obstructive sleep apnea (adult) (pediatric), I10 - Essential (primary) hypertension, J45.40 - Moderate persistent asthma, uncomplicated, Z68.37 - Body mass index [BMI] 37.0- 37.9, adult FL upper GI w air Today E05.00 - Thyrotoxicosis with diffuse goiter without thyrotoxic crisis or storm, E11.9 - Type 2 diabetes mellitus without complications, E66.9 - Obesity, unspecified, G47.33 - Obstructive sleep apnea (adult) (pediatric), I10 - Essential (primary) hypertension, J45.40 - Moderate persistent asthma, uncomplicated, Z68.37 - Body mass index [BMI] 37.0-37.9, adult Insulin Today E05.00 - Thyrotoxicosis with diffuse goiter without thyrotoxic crisis or storm, E11.9 - Type 2 diabetes mellitus without complications, E66.9 - Obesity, unspecified, G47.33 - Obstructive sleep apnea (adult) (pediatric), I10 - Essential (primary) hypertension, J45.40 - Moderate persistent asthma, uncomplicated, Z68.37 - Body mass index [BMI] 37.0-37.9, adult H Pylori Breath Test Today E05.00 - Thyrotoxicosis with diffuse goiter without thyrotoxic crisis or storm, E11.9 - Type 2 diabetes mellitus without complicatio ns, E66.9 - Obesity, unspecified, G47.33 - Obstructive sleep apnea (adult) (pediatric), I10 - Essential (primary) hypertension, J45.40 - Moderate persistent asthma, uncomplicated, Z68.37 - Body mass index [BMI] 37.0-37.9, adult Vitamin B12 and Folate Today E05.00 - Thyrotoxicosis with diffuse goiter without thyrotoxic crisis or storm, E11.9 - Type 2 diabetes mellitus without complications, E66.9 - Obesity, unspecified, G47.33 - Obstructive sleep apnea (adult) (pediatric), I10 - Essential (primary) hypertension, J45.40 - Moderate persistent asthma, uncomplicated, Z68.37 - Body mass index [BMI] 37.0-37.9, adult C Reactive Protein Today E05.00 - Thyrotoxicosis with diffuse goiter without thyrotoxic crisis or storm, E11.9 - Type 2 diabetes mellitus without complications, E66.9 - Obesity, unspecified, G47.33 - Obstructive sleep apnea (adult) (pediatric), I10 - Essential (primary) hypertension, J45.40 - Moderate persistent asthma, uncomplicated, Z68.37 - Body mass index [BMI] 37.0-37.9, adult Vitamin B1 Today E05.00 - Thyrotoxicosis with diffuse goiter without thyrotoxic crisis or storm, E11.9 - Type 2 diabetes mellitus without complications, E66.9 - Obesity, unspecified, G47.33 - Obstructive sleep apnea (adult) (pediatric), I10 - Essential (primary) hypertension, J45.40 - Moderate persistent asthma, unc omplicated, Z68.37 - Body mass index [BMI] 37.0-37.9, adult Vitamin A Today E05.00 - Thyrotoxicosis with diffuse goiter without thyrotoxic crisis or storm, E11.9 - Type 2 diabetes mellitus without complications, E66.9 - Obesity, unspecified, G47.33 - Obstructive sleep apnea (adult) (pediatric), I10 - Essential (primary) hypertension, J45.40 - Moderate persistent asthma, uncomplicated, Z68.37 - Body mass index [BMI] 37.0-37.9, adult Ferritin Today E05.00 - Thyrotoxicosis with diffuse goiter without thyrotoxic crisis or storm, E11.9 - Type 2 diabetes mellitus without complications, E66.9 - Obesity, unspecified, G47.33 - Obstructive sleep apnea (adult) (pediatric), I10 - Essential (primary) hypertension, J45.40 - Moderate persistent asthma, uncomplicated, Z68.37 - Body mass index [BMI] 37.0-37.9, adult Vitamin D 25-OH Total Today E05.00 - Thyrotoxicosis with diffuse goiter without thyrotoxic crisis or storm, E11.9 - Type 2 diabetes mellitus without complications, E66.9 - Obesity, unspecified, G47.33 - Obstructive sleep apnea (adult) (pediatric), I10 - Essential (primary) hypertension, J45.40 - Moderate persistent asthma, uncomplicated, Z68.37 - Body mass index [BMI] 37.0-37.9, adult XR chest 2V Today E05.00 - Thyrotoxicosis with diffuse goiter without thyrotoxic crisis or storm, E11.9 - Type 2 diabetes mellitus without complications, E66.9 - Obesity, unspecified, G47.33 - Obstructive sleep apnea (adult) (pediatric), I10 - Essential (primary) hypertension, J45.40 - Moderate persistent asthma, uncomplicated, Z68.37 - Body mass index [BMI] 37.0-37.9, adult ECG 12 lead EKG Today E05.00 - Thyrotoxicosis with diffuse goiter without thyrotoxic crisis or storm, E11.9 - Type 2 diabetes mellitus without complications, E66.9 - Obesity, unspecified, G47.33 - Obstructive sleep apnea (adult) (pediatric), I10 - Essential (primary) hypertension, J45.40 - Moderate persistent asthma, uncomplicated, Z68.37 - Body mass index [BMI] 37.0-37.9, adult Referrals Behavioral Health Referral E05.00 - Thyrotoxicosis with diffuse goiter without thyrotoxic crisis or storm, E11.9 - Type 2 diabetes mellitus without complications, E66.9 - Obesity, unspecified, G47.33 - Obstructive sleep apnea (adult) (pediatric), I10 - Essential (primary) hypertension, J45.40 - Moderate persistent asthma, uncomplicated, Z68.37 - Body mass index [BMI] 37.0-37.9, adult Nutrition/Dietitian Referral E05.00 - Thyrotoxicosis with diffuse goiter without thyrotoxic crisis or storm, E11.9 - Type 2 diabetes mellitus without complications, E66.9 - Obesity, unspecified, G47.33 - Obstructive sleep apnea (adult) (pediatric), I10 - Essential (primary) hypertension, J45.40 - Moderate persistent asthma, uncomplicated, Z68.37 - Body mass index [BMI] 37.0-37.9, adult
[2025-04-24 11:05] VITALS: BMI 37.4
== END 2025-04-24 11:28 | disposition home or self-care (01) ==
LOC: HO.HBS 08:10
PROVIDERS: PCP Internal Medicine; Visit Provider Surgery
DX: E66.9 Obesity, unspecified (principal); Z68.37 Body mass index [BMI] 37.0-37.9, adult
CPT/HCPCS: 99204

== ENCOUNTER 2025-05-22 10:12 | Outpatient (AMB) | payer MEDICARE, OTHER, SELFPAY ==
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
--- OUTSIDE RECORDS SUMMARY | 2025-05-22 12:33 | XMS_ITS | Continuity of Care Document ---
Author Organization [place] [facility] Satnam Albarran [place] Address [address] [place] [address] Care Team Providers Care Edger Tailer Name Role Phone MAGO SHEN Primary Care Provider [phone] Assessment Encounter Date Assessment Date Assessment LastModified by Organization Details LastModified Time 03/24/2025 03/24/2025 The above findings were discussed [...] recorded . Surgeries None recorded . Imaging None recorded . Medication Orders lidocain e (PF) 10 mg/mL (1 %) injectio n solution 2024 [facility] #[id number], [address] [place], [address], 16:34:58 triamcin olone acetonid e 40 mg/mL suspensi on for injectio n 2024 025 [id number], [address] [place], [address], 16:34:58 lidocain e (PF) 10 mg/mL (1 %) injectio n solution 2024 [id number] [address] [place], [address], 16:34:58 triamcin olone acetonid e 40 mg/mL suspensi on for injectio n 2024 [id number], [address] [place], [address], 16:34:58 Patient TargetsNo targets recorded. Patient Instructions Encounter Date Encounter Id Patient Instructions Last Modified By Organization Details Last Modified Time 03/24/2025 [id number] You have been provided with a cortisone [...] or contact us through the portal DONNELL. [email or web address] Not available 03/24/2025 16:19:34 Reason for Referral None Reported. Problems Name Problem SNOMED Code Status Onset Date Resolution Date Notes Provider Name and Address Organization Details Recorded Time Acquired trigger finger of right middle finger 28933324230 9105 Active 2022 Ayden Khan MD [address], [place], [address] , [place] [facility] 3 11:23:45 Osteoarth ritis of left knee joint 97998778174 9109 Active 2022 AURA REYES PA-C [address], [place], [address] , [place] [facility] 3 11:04:02 Obstructi ve sleep apnea syndrome 76877120 Active 2023 Sleep apnea, obstructi ve Not Available [facility] 5 23:22:41 Osteoporo sis 12756287 Active 2023 Osteoporo sis Not Available [facility] 5 23:22:42 Gastroeso phageal reflux disease 058213075 Active 2023 GERD (gastroes ophageal reflux disease) Not Available [facility] 5 23:22:43 Hyperlipi demia 66702178 Active 2023 Hyperlipi demia Not Available [facility] 5 23:22:43 Asthma 000229013 Active 2023 Asthma Not Available [facility] 5 23:22:44 Hypertens tere disorder 46204698 Active 2023 Hypertens ion Not Available [facility] 5 23:22:44 Anemia 708502554 Active 2023 Anemia - Overview: Formattin g of this note might be different from the original. iron transfusi on weekly in 2103 Not Available [facility] 5 23:22:45 Urinary incontine nce 471269305 Active 2023 Urinary incontine nce Not Available [facility] 5 23:22:42 Periphera l nerve disease 609289546 Active 2023 Periphera l neuropath y - Overview: Formattin g of this note might be different from the original. 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 Procedures Surgical History Date Name Laterality Status Provider Name and Address Organization Details Recorded Time 03/24/20 25 LES trigger finger/De Quervain's injection completed Colleen Bowles [place] [facility] 03/24/2025 14:02:20 03/24/20 25 AJR trigger finger/De Quervain's injection completed Colleen Bowles [place] [facility] 03/24/2025 14:02:29 09/30/19 25 LES trigger finger/De Quervain's injection completed Pop Jones MD [address], [place], [address], [place] [facility] 09/29/2024 14:30:55 05/27/20 24 LES trigger finger/De Quervain's injection completed Blanquita Killian MD [address], [place], [address], [place] [facility] 05/30/2024 16:16:50 01/11/20 24 TOTAL KNEE ARTHROPLASTY (SURG) completed Macie Hopson [facility] 01/12/2024 09:00:37 10/02/19 24 TOSHIA Knee Injection completed AURA REYES PA-C [address], [place], [address], [place] [facility] 10/02/2023 11:25:23 05/19/20 23 TOSHIA Knee Injection completed AURA REYES PA-C [address] [facility], [place], [address], [place] [facility] 05/19/2023 17:01:18 02/27/20 23 TOSHIA Knee Injection completed AURA REYES PA-C [address], [place], [address], [place] [facility] 02/26/2023 11:02:17 12/02/19 23 TOSHIA Knee Injection completed AURA REYES PA-C [address], [place], [address], [place] [facility] 12/01/2022 10:09:03 arthroplasty of knee completed Paula Beckford [place] [facility] 12/01/2022 09:53:12 delivery completed Paula Beckford [place] [facility] 12/01/2022 09:53:19 Imaging Results None recorded. Procedure Notes None recorded. Medical Equipment None Reported. Allergies Allergen ID Allergen Name Allergen Category Reaction Reaction Severity Criticality Documentation Date Start Date Code Code System Note Provider Name and Address Organization Details Recorded Time 78028 metformin medicatio n Not available Not available Not available 03/14/20252023 6809 RxNorm React ion: Diarr hea, sever ity: Unkno wn;Ot her react ion(s ): diarr hea Not Available [facility] 01:16:15 Medications Name Sig Start Date Stop [...] Available Not Available Not Available Josr Edmond [facility] spacer active Not Available Not [...] R:IN THE ABDOMEN, THIGH, OR UPPER ARM 03/24 completed Not Available Not Available Not [...] Not Available Not Available Not Available Vitals None Recorded Social History None recorded. Functional Status Question [...] 50 mcg/0.25mL dose 06/21/2021 completed Not Available [facility] 06:10:58 COVID-19, mRNA, LNP-S, PF, 100 mcg/0.5mL dose or 50 mcg/0.25mL dose 07/19/2021 completed Not Available [facility] 06:10:58 Past Encounters Encounter ID Performer Location Encounter Start Date Encounter Closed Date Diagnosis/Indication Diagnosis SNOMED-CT Code Diagnosis ICD10 Code Diagnosis IMO Codes Diagnosis Note [id number] Blanquita Killian MD [address] [address] 03/24/2025 13:26:20 03/24/2025 14:28:27 Radial styloid tenosynovitis 28010127 M65.4 977461 Acquired t safety deposit clerk finger of right middle finger 9382119765 45963 M65.331 Health Concerns Section Related Observation LastModified by Organization Detai ls LastModified Time None Recorded Concern Status LastModified by Organization Details LastModified Time None Recorded Payers Encounter Date Sequence Insurance Name Policy Number Policy Lassiter Covered Member ID Lassiter Member ID Guarantor Name 03/24/2025 1 [employer] (MEDICARE REPLACEMENT /ADVANTAGE - PPO) [id number] 1 Coleen Machado [id number] Gino Machado 03/24/2025 2 FOR LIFE ( - MEDICARE SUPPLEMENT) Gino Machado [id number] Gino Machado Notes Date Note Type Note Provider Name and Address Organization Details Recorded Time 03/24/2025 text/html ROS as noted in the [...] Blanquita Killian MD [address], [place], [address], [place] [facility] 03/24/2025 16:20:47 OBGyn Episode No OBEpisode recorded.
--- OUTSIDE RECORDS SUMMARY | 2025-05-22 12:33 | XMS_ITS | Data Portability ---
Author Organization [place] [facility] Satnam Albarran [place] Address [address] [place] [address] Care Team Providers Care Rice Farmworker Name Role Phone MAGO SHEN Primary Care [...] more view 2023 024 [email or web address] [facility], [address], [place], [address], 11/01/202 4 13:17:46 XR, wrist, 3 or more view 2023 024 [facility], [address], [address], [place], [address], 4 13:17:46 Medication Orders lidocain e (PF) 10 mg/mL (1 %) injectio n solution 2024 025 [facility] #[id number], [address] [place], [address], 5 16:34:58 triamcin olone acetonid e 40 mg/mL suspensi on for injectio n 2024 025 [id number], [address] [place], [address], 5 16:34:58 lidocain e (PF) 10 mg/mL (1 %) injectio n solution 2024 025 [facility]1291, [address] [place], [address], 5 16:34:58 triamcin olone acetonid e 40 mg/mL suspensi on for injectio n 2024 025 [facility]1291, [address] [place], [address], 5 16:34:58 lidocain e (PF) 10 mg/mL (1 %) injectio n solution 2024 025 [email or web address] Not available 5 08:40:43 triamcin olone acetonid e 40 mg/mL suspensi on for injectio n 2024 025 [email or web address] Not available 5 08:40:43 lidocain e (PF) 10 mg/mL (1 %) injectio n solution 2023 024 [email or web address] Not available 4 11:49:48 triamcin olone acetonid e 40 mg/mL suspensi on for injectio n 2023 024 [email or web address] Not available 4 11:49:48 diclofen ac 1 % topical gel [address] [facility] #[id number], [address] [place], [address], 5 14:12:05 Patient TargetsNo targets recorded. Patient Instructions Encounter Date Encounter Id Patient Instructions Last Modified By Organization Details Last Modified Time 04/22/2024 [id number] views of bilateral wrist were ordered and reviewed today, this demonstrates no acute findings. 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 Otherwise anatomic alignment of the wrist and carpal bones. [email or web address] Not available 04/22/2024 12:24:00 03/24/2025 [id number] You have been provided with a cortisone [...] Acquired trigger finger of right middle finger 68472300541 9105 Active 2022 Ayden Khan MD [address], [place], [address] , [place] [facility] 3 11:23:45 Osteoarth ritis of left knee joint 39792357666 9109 Active 2022 AURA REYES PA-C [address], [place], [address] , [place] [facility] 3 11:04:02 Obstructi ve sleep apnea syndrome 22417918 Active 2023 Sleep apnea, obstructi ve Not Available [facility] 5 23:22:41 Osteoporo sis 26622391 Active 2023 Osteoporo sis Not Available [facility] 5 23:22:42 Gastroeso phageal reflux disease 896962727 Active 2023 GERD (gastroes ophageal reflux disease) Not Available [facility] 5 23:22:43 Hyperlipi demia 73254955 Active 2023 Hyperlipi demia Not Available [facility] 5 23:22:43 Asthma 889685661 Active 2023 Asthma Not Available [facility] 5 23:22:44 Hypertens tere disorder 49415676 Active 2023 Hypertens ion Not Available [facility] 5 23:22:44 Anemia 955393667 Active 2023 Anemia - Overview: Formattin g of this note might be different from the original. iron transfusi on weekly in 2103 Not Available [facility] 5 23:22:45 Urinary incontine nce 382003699 Active 2023 Urinary incontine nce Not Available [facility] 5 23:22:42 Periphera l nerve disease 356198107 Active 2023 Periphera l neuropath y - Overview: Formattin g of this note might be different from the original. 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 Procedures Surgical History Date Name Laterality Status Provider Name and Address Organization Details Recorded Time 03/24/20 25 LES trigger finger/De Quervain's injection completed Colleen Bowles [facility] 03/24/2025 14:02:20 03/24/20 25 AJR trigger finger/De Quervain's injection completed Colleen Bowles [facility] 03/24/2025 14:02:29 09/30/19 25 LES trigger finger/De Quervain's injection completed Pop Jones MD [address], [place], [address], [place] [facility] 09/29/2024 14:30:55 05/27/20 24 LES trigger finger/De Quervain's injection completed Blanquita Killian MD [address], [place], [address], [place] [facility] 05/30/2024 16:16:50 01/11/20 24 TOTAL KNEE ARTHROPLASTY (SURG) completed Macie Hopson [place] [facility] 01/12/2024 09:00:37 10/02/19 24 TOSHIA Knee Injection completed AURA REYES PA-C [address], [place], [address], [place] [facility] 10/02/2023 11:25:23 05/19/20 23 TOSHIA Knee Injection completed AURA REYES PA-C [address], [place], [address], [place] [facility] 05/19/2023 17:01:18 02/27/20 23 TOSHIA Knee Injection completed AURA REYES PA-C [address], [place], [address], [place] [facility] 02/26/2023 11:02:17 12/02/19 23 TOSHIA Knee Injection completed AURA REYES PA-C [address], [place], [address], [place] [facility] 12/01/2022 10:09:03 arthroplasty of knee completed Paula Beckford [place] [facility] 12/01/2022 09:53:12 delivery completed Paula Beckford [place] [facility] 12/01/2022 09:53:19 Imaging Results None recorded. Procedure Notes None recorded. Medical Equipment None Reported. Allergies Allergen ID Allergen Name Allergen Category Reaction Reaction Severity Criticality Documentation Date Start Date Code Code System Note Provider Name and Address Organization Details Recorded Time 87930 metformin medicatio n Not available Not available Not available 03/14/20252023 8339 RxNorm React ion: Bonny veliz, lillie ity: Unkno wn;Ot her react ion(s ): bonny veliz Not Available [facility] 01:16:15 Medications Name Sig Start Date Stop [...] Available Not Available Not Available Josr Edmond [facility] spacer active Not Available Not Available [...] cm Annie Britt [place] - [facility] 09/29/2024 14:12:22 Date Recorded Body height Provider Name an d Address Organization Details Last Updated DateTime 03/29/[address]24 [address] [facility] 03/29/2024 13:44:15 Date Recorded Body height Body mass index (BMI) Body weight Provider Name and Address Organization Details Last Updated DateTime 04/22/2024 165.1 cm 38.3 kg/m2 785759.[address] [place] [facility] 04/22/2024 11:20:11 Social History None recorded. [...] 50 mcg/0.25mL dose 06/21/2021 completed Not Available [facility] 06:10:58 COVID-19, mRNA, LNP-S, PF, 100 mcg/0.5mL dose or 50 mcg/0.25mL dose 07/19/2021 completed Not Available [facility] 06:10:58 Past Encounters Encounter ID Performer Location Encounter Start Date Encounter Closed Date Diagnosis/Indication Diagnosis SNOMED-CT Code Diagnosis ICD10 Code Diagnosis IMO Codes Diagnosis Note [id number] MARILEE COLLINS [place] [id number] 12/01/2022 09:20:27 12/01/2022 10:02:15 Osteoarthritis of right knee joint 7622682240 52392 M17.11 [id number] MD [place] [id number] 12/03/2022 10:42:28 12/03/2022 11:16:10 Pain in finger of right hand 4827173707 59771 M79.644 Acquired t bridge rigger finger of right middle finger 2595421047 99628 M65.331 [id number] MARILEE COLLINS [place] [id number] 02/26/2023 09:48:44 02/26/2023 10:57:50 Osteoarthritis of left knee joint 3679731327 74044 M17.12 [id number] MARILEE COLLINS [address] [address] 05/19/2023 09:58:09 05/19/2023 10:46:46 Osteoarthritis of left knee joint 8928387106 35991 M17.12 [id number] MARILEE GOLDBERG [address] [address] 06/23/2023 13:54:40 06/23/2023 14:27:57 Osteoarthritis of left knee joint 4949038993 26458 M17.12 [id number] MARILEE COLLINS [facility] [address] [place] [address] [place] [address] 10/02/2023 10:29:22 10/02/2023 11:23:55 Osteoarthritis of left knee joint 1579460879 16486 M17.12 [id number] MD RISA Quinonez [address] [address] 10/16/2023 13:19:48 10/16/2023 13:50:13 Osteoarthritis of left knee joint 5673335793 85489 M17.12 Arthritis of knee 693008 002 M13.869 [id number] MARILEE GOLDBERG [address] [address] 01/07/2024 09:07:02 01/07/2024 15:41:48 Osteoarthritis of left knee joint 4390068775 80042 M17.12 [id number] MARILEE GOLDBERG [address] [place] [address] [place] [address] 01/27/2024 09:39:09 01/27/2024 10:04:22 History of total knee arthroplasty 2264896473 105 Z96.652 Additional diagnosis detail: Status post left [place] replacemen t [id number] MD RISA Quinonez [address] [address] 02/23/2024 12:41:43 02/23/2024 13:02:10 History of total knee arthroplasty 6342350937 105 Z96.652 [id number] MD RISA Quinonez [address] [address] 03/29/2024 13:29:02 03/29/2024 13:46:47 History of total knee arthroplasty 9292231668 105 Z96.652 [id number] Blanquita Killian MD [facility] [place] [id number] 04/22/2024 11:02:24 04/22/2024 11:59:00 Pain of right wrist 3395316491 16585 M25.531 625205 Pain of left wrist 08111 34306 33556 M25.532 080834 Osteoarthr itis of metacarpophalangeal joint of finger 781470169 M19.042 6413312861 Radial sty loid tenosynovitis 19345815 M65.4 001617 Triggering of digit 2399 07305 M65.632 [id number] Blanquita Killian MD [facility] [place] [id number] 05/27/2024 14:52:40 05/27/2024 15:44:50 Radial styloid tenosynovitis 43456634 M65.4 729570 [id number] Pop Jones MD [facility] [place] [id number] 09/29/2024 14:02:31 09/29/2024 14:39:31 Triggering of digit 860120363 M65.298 [id number] Radial sty loid tenosynovitis 03229669 M65.4 967231 [id number] Blanquita Killian MD [facility] [place] [id number] 03/24/2025 13:26:20 03/24/2025 14:28:27 Radial styloid tenosynovitis 13483231 M65.4 518391 Acquired t bridge rigger finger of right middle finger 8209486269 22004 M65.331 Health Concerns Section Related Observation LastModified by Organization Detai ls LastModified Time None Recorded Concern Status LastModified by Organization Details LastModified Time None Recorded Advance Directives Directive None Recorded Payers Insurance Date Sequence Insurance Name Policy Number Policy Lassiter Covered Member ID Lassiter Member ID Guarantor Name 03/24/2025 1 [employer] (MEDICARE REPLACEMENT /ADVANTAGE - PPO) [id number] 1 Coleen Machado [id number] Gino Machado 03/23/2025 2 FOR LIFE ( - MEDICARE SUPPLEMENT) Gino Machado [id number] Gino Machado Notes Date Note Type Note Provider Name and Address Organization Details Recorded Time 04/22/2024 text/html ROS as noted in the HPI This is a 68-year-old [id number] female who presents with bilateral, right worse [...] Blanquita Killian MD [address], [place], [address], [place] [facility] 04/22/2024 12:25:57 05/27/2024 text/html ROS as noted in the HPI She presents for follow-up of her left wrist Dequervain's tenosynovitis, she has tried brace, activity modification, anti-inflammatories with continued pain. She would like to consider a cortisone injection today. Blanquita Killian MD [address], [place], [address], [place] [facility] 05/30/2024 16:18:17 09/29/2024 text/html ROS as noted in the HPI 69-year-old woman presenting with recurrent left de Quervain's recently had injection with Dr. Killian 05/27/2024 resolved majority of the pain. She also has triggering of her right long finger she is interested in discussing treatment options Pop Jones MD [address], [place], [address], [place] [facility] 09/29/2024 14:32:38 03/24/2025 text/html ROS as [...] Blanquita Killian MD [address], [place], [address], [place] [facility] 03/24/2025 16:20:47 OBGyn Episode No OBEpisode recorded.
--- OUTSIDE RECORDS SUMMARY | 2025-05-22 12:33 | XMS_ITS | Clinical Summary ---
Author Organization [facility] Address [address] [place] [address] Care Team Providers Care Senior Market Intelligence Consultant Name Role Phone Melanie Salguero MD Primary [...] this topic Medical Devices Implanted Type Area Donor Services Technician Device Identifier Shelf Expiration Date Model / Serial / Lot Knee Fem Bsplt W Pa Stry-Howm 1230-W-468-645 552 - [id number] Implanted:Qty: 1 on 12/16/2021 by Rupesh Tai MD at [facility] Right: Knee [facility] [id number] 09/01/2026 5517-F-402 / / [id number] Knee Bsplt Triathlon Ti Sz 4 Stry-HowWasatch [employer] 7659-T-913-552 543 - [id number] Implanted:Qty: 1 on 12/16/2021 by Rupesh Tai MD at [facility] Right: Knee [employer] [facility] [id number] 10/11/2026 5536-B-400 / / [id number] Knee Tib Insrt Cr-X3 [id number] Stry-HowWasatch Vapor[employer]ix 3045-P-082-631 525 - [id number] Implanted:Qty: 1 on 12/16/2021 by Rupesh Tai MD at [facility] Right: Knee [employer] [facility] [employer] [id number] 05/29/2026 5530-G-411 / / [id number] Knee Bsplt Triathlon Ti Sz 3 Stry-Howm 3390-U-484-642 551 - [id number] Implanted:Qty: 1 on 01/11/2024 by Rupesh Tai MD at [facility] Left: Knee [facility] [id number] 07/27/2028 5536-B-300 / / [id number] Tibial Bearing Insert Cr 10mm StrBomoda-ScheduleSoft 3095-V-952-E-7 58738 - [id number] Implanted:Qty: 1 on 01/11/2024 by Rupesh Tai MD at [facility] Left: Knee [facility] [id number] 03/15/2028 5530-G-310 -E / / [id number] Knee Fem Bsplt W Pa Stry-HowWasatch Vapor[employer]ix 9200-I-575-645 555 - [id number] Implanted:Qty: 1 on 01/11/2024 by Rupesh Tai MD at [facility] Left: Knee [facility] [id number] 10/15/2028 5517-F-301 / / [id number] Explanted Type Area Donor Services Technician Device Identifier Shelf Expiration Date Model / Serial / Lot Knee Tib Insrt Cr-X3 [id number] StrBomoda[employer] 8624-X-059-631 524 - [id number] Explanted:Qty: 1 on 12/16/2021 at [facility] Right: Knee [facility] [id number] 05/18/2023 5530-G-409 / / [id number] Advance Directives For more information, please contact: [phone] Latest Code Status on File Code Status [...] discussion with patient . Care Teams Senior Market Intelligence Consultant Relationship Specialty Start Date End Date Melanie Salguero MD [address] [place] [address] PCP - General Internal Medicine 08/26/21
--- OUTSIDE RECORDS SUMMARY | 2025-05-22 12:34 | XMS_ITS | Clinical Summary ---
Author Organization [facility] Address [address] [place] [address] Care Team Providers Care Correspondence School Instructor Name Role Phone Unknown Primary Care Provider [phone] Allergies No known active allergies Medications hydroCHLOROthiazi [...] complete this topic Insurance AETNA MGD MEDICARE [facility] Care Teams Correspondence School Instructor Relationship Specialty Start Date End Date Unknown Unknow Provider Address PCP - General 12/09/22
--- OUTSIDE RECORDS SUMMARY | 2025-05-22 12:34 | XMS_ITS | Clinical Summary ---
Author Organization [address] Address [address] [place] [address] Care Team Providers Care Tnt Line Supervisor Name Role Phone No, Pcp (Do Not [...] to complete this topic Insurance TOMER LUIS [facility] MGD [employer] TOMER LUIS [facility] [employer] [facility] [employer] Care Teams Tnt Line Supervisor Relationship Specialty Start Date End Date No, Pcp (Do Not Change Name) PCP - General 10/25/24
== END 2025-05-22 11:11 | disposition home or self-care (01) ==
LOC: HO.HBST 10:12
PROVIDERS: Visit Provider Counselor Mental Health
DX: F43.20 Adjustment disorder, unspecified (principal); Z72.4 Inappropriate diet and eating habits; Z71.89 Other specified counseling
CPT/HCPCS: 90791

== ENCOUNTER → 2025-06-20 20:30 | Outpatient (REF) | payer MEDICARE, OTHER, SELFPAY ==
--- OUTSIDE RECORDS SUMMARY | 2025-06-20 21:58 | XMS_ITS | Continuity of Care Document ---
Author Name [facility] Organization [facility] Care Team Providers Care Protozoologist Name Role Phone [facility] Unavailable Unavailable Social History Combined list of available smoking, tobacco, and other social history from Department of Defense and Veterans Affairs facilities. Social History Type Response Date Comment Sourc e This section is an empty social history section. [facility]
--- OUTSIDE RECORDS SUMMARY | 2025-06-20 21:59 | XMS_ITS | Continuity of Care Document ---
Author Organization [facility] Satnam Albarran AONE Metcalfe Address [address] [place] [address] Care Team Providers Care Literacy Coach Name Role Phone MAGO SHEN Primary Care Provider [phone] Assessment Encounter Date Assessment Date Assessment LastModified [...] mg/mL (1 %) injectio n solution 2024 [id number], [address] [place], [address], 16:34:58 triamcin olone acetonid e 40 mg/mL suspensi on for injectio n 2024 025 [id number], [address] [place], [address], 16:34:58 lidocain e (PF) 10 mg/mL (1 %) injectio n solution 2024 [id number] [address] [place], [address], 16:34:58 triamcin olone acetonid e 40 mg/mL suspensi on for injectio n 2024 [id number], [address] [place], [address], 16:34:58 Patient TargetsNo targets recorded. Patient Instructions Encounter Date Encounter Id Patient Instructions Last Modified By Organization Details Last Modified Time 03/24/2025 [id number] You have been provided with a cortisone [...] Acquired trigger finger of right middle finger [id number] 9105 Active 2022 Ayden Khan MD [address], [place], [address] , [place] [facility] 11:23:45 Osteoarth ritis of left knee joint 34480832421 9109 Active 2022 AURA REYES PA-C [address], [place], [address] , [place] [facility] 11:04:02 Obstructi ve sleep apnea syndrome 93275286 Active 2023 Sleep apnea, obstructi ve Not Available [facility] 5 23:22:41 Osteoporo sis 59914617 Active 2023 Osteoporo sis Not Available [facility] 5 23:22:42 Gastroeso phageal reflux disease 714731781 Active 2023 GERD (gastroes ophageal reflux disease) Not Available [facility] 5 23:22:43 Hyperlipi demia 21729902 Active 2023 Hyperlipi demia Not Available [facility] 5 23:22:43 Asthma 855203450 Active 2023 Asthma Not Available [facility] 5 23:22:44 Hypertens tere disorder 40101220 Active 2023 Hypertens ion Not Available [facility] 5 23:22:44 Anemia 835686050 Active 2023 Anemia - Overview: Formattin g of this note might be different from the original. iron transfusi on weekly in 2103 Not Available [facility] 5 23:22:45 Urinary incontine nce 153590241 Active 2023 Urinary incontine nce Not Available [facility] 5 23:22:42 Periphera l nerve disease 540411463 Active 2023 Periphera l neuropath y - Overview: Formattin g of this note might be different from the original. 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 Procedures Surgical History Date Name Laterality Status Provider Name and Address Organization Details Recorded Time 03/24/20 25 LES trigger finger/De Quervain's injection completed Colleen Bowles [place] [facility] 03/24/2025 14:02:20 03/24/20 25 AJR trigger finger/De Quervain's injection completed Colleen Bowles [place] [facility] 03/24/2025 14:02:29 09/30/19 25 LES trigger finger/De Quervain's injection completed Pop Jones MD [address], [place], [address], [place] [facility] 09/29/2024 14:30:55 05/27/20 24 LES trigger finger/De Quervain's injection completed Blanquita Killian MD [address], [place], [address], [place] [facility] 05/30/2024 16:16:50 01/11/20 24 TOTAL KNEE ARTHROPLASTY (SURG) completed Macie Hopson [facility] 01/12/2024 09:00:37 10/02/19 24 TOSHIA Knee Injection completed AURA REYES PA-C [address], [place], [address], [place] [facility] 10/02/2023 11:25:23 05/19/20 23 TOSHIA Knee Injection completed AURA REYES PA-C [address] [facility], [place], [address], [place] [facility] 05/19/2023 17:01:18 02/27/20 23 TOSHIA Knee Injection completed AURA REYES PA-C [address], [place], [address], [place] [facility] 02/26/2023 11:02:17 12/02/19 23 TOSHIA Knee Injection completed AURA REYES PA-C [address], [place], [address], [place] [facility] 12/01/2022 10:09:03 arthroplasty of knee completed Paula Beckford [place] [facility] 12/01/2022 09:53:12 delivery completed Paula Beckford [place] [facility] 12/01/2022 09:53:19 Imaging Results None recorded. Procedure Notes None recorded. Medical Equipment None Reported. Allergies Allergen ID Allergen Name Allergen Category Reaction Reaction Severity Criticality Documentation Date Start Date Code Code System Note Provider Name and Address Organization Details Recorded Time 55668 metformin medicatio n Not available Not available Not available 03/14/20252023 6809 RxNorm React ion: Diarr hea, sever ity: Unkno wn;Ot her react ion(s ): diarr hea Not Available [facility] 01:16:15 Medications Name Sig Start Date [...] Available Not Available Not Available Josr Edmond [facility] spacer active Not Available Not Available [...] 50 mcg/0.25mL dose 06/21/2021 completed Not Available [facility] 06:10:58 COVID-19, mRNA, LNP-S, PF, 100 mcg/0.5mL dose or 50 mcg/0.25mL dose 07/19/2021 completed Not Available [facility] 06:10:58 Past Encounters Encounter ID Performer Location Encounter Start Date Encounter Closed Date Diagnosis/Indication Diagnosis SNOMED-CT Code Diagnosis ICD10 Code Diagnosis IMO Codes Diagnosis Note [id number] Blanquita Killian MD [address] [address] 03/24/2025 13:26:20 03/24/2025 14:28:27 Radial styloid tenosynovitis 27632096 M65.4 054119 Acquired t aluminum welder finger of right middle finger 6843186935 21512 M65.331 Health Concerns Section Related Observation LastModified by Organization Detai ls LastModified Time None Recorded Concern Status LastModified by Organization Details LastModified Time None Recorded Payers Encounter Date Sequence Insurance Name Policy Number Policy Lassiter Covered Member ID Lassiter Member ID Guarantor Name 03/24/2025 1 A[employer] (MEDICARE REPLACEMENT /ADVANTAGE - PPO) [id number] Coleen Machado [id number] Gino Machado 03/24/2025 2 FOR LIFE ( - MEDICARE SUPPLEMENT) Gino Machado [id number] Gino Machado Notes Date Note Type Note [...] Blanquita Killian MD [address], [place], [address], [place] [facility] 03/24/2025 16:20:47 OBGyn Episode No OBEpisode recorded.
--- OUTSIDE RECORDS SUMMARY | 2025-06-20 22:00 | XMS_ITS | Clinical Summary ---
Author Organization [facility] Address [address] [place] [address] Care Team Providers Care Business Support Coordinator Name Role Phone Unknown Primary Care Provider [phone] Allergies No known active allergies Medications hydroCHLOROthiazi [...] complete this topic Insurance AETNA MGD MEDICARE [facility] Care Teams Business Support Coordinator Relationship Specialty Start Date End Date Unknown Unknow Provider Address PCP - General 12/09/22
--- OUTSIDE RECORDS SUMMARY | 2025-06-20 22:00 | XMS_ITS | Patient Health Record ---
Author Organization [facility] Address [address] [place] [address] Care Team Providers Care Supplier Relationship Director Name Role Phone VIRGINIE DE LA GARZA Unavailable [phone] Allergies No Known Allergies Reason For Referral No Information Medications Medication SIG (Take, Route, Frequency, Duration) Notes Start Date End Date Status Berberine HCI 500 MG Capsule as directed Orally Active Ibuprofen 600 MG Tablet 1 tablet with fo od or milk as needed Orally once a day; Duration: 30 days 02/24/2023 Active Phentermine HCl 30 MG Capsule 1 capsule Orally Once a day; Duration: 30 days 02/24/2023 Active hydroCHLOROthiazide 25 MG Tablet 1 tablet in the morning Orally Once a day Active Singulair 10 MG Tablet 1 tablet Orally O nce a day Active Social History Tobacco Use: Social History Observation Description Date Details (start date - stop date) Never Smoker NA - NA Social History Tobacco Use: Social Info Question Answer Notes Tobacco Use/Smoking Are you a nonsmoker Problems Problem Type SNOMED Code ICD Code Onset Dates Problem Status W/U Status Risk Notes Problem Vitamin D deficiency (55385984) Vitamin D deficiency, unspecified (E55.9) Active confirmed Problem Morbid obesity (disorder) (646839141) Morbid (severe) obesity due to excess calories (E66.01) Active confirmed Problem Obesity due to exces s calories (682161018) Other obesity due to excess calories (E66.09) Active confirmed Problem Hyperlipidaemia (85508684) Hyperlipidemia, unspecified hyperlipidemia type (E78.5) Active confirmed Problem Hyperlipoproteinemia (1187235) Acquired hyperlipoproteinemia (E78.5) Active confirmed Problem Sleep apnea (32676775) Sleep apnea, unspecified type (G47.30) Active confirmed Problem Body mass index 35.0 0 to 39.99 (424314983890034) Body mass index [BMI] 39.0-39.9, adult (Z68.39) Active confirmed Problem Body mass index 40+ - severely obese (617118377) Body mass index [BMI] 45.0-49.9, adult (Z68.42) Active confirmed Problem Primary hypertension (52610925) Primary hypertension (I10) Active confirmed Plan Of Treatment Pending Test Test Name Order Date EKG 11/20/2021 Insurance Providers Payer Name Payer Address Payer Phone Subscriber Number Group Number Insured Name Patient Relationship to Insured Coverage Start Date Coverage End Date A[employer] [address] [address] [place] [address] [id number] Coleen Machado Self - patient is the insured for life [address] [place] [address] [id number] Coleen Machado Self - patient is the insured Medications Administered Medication Instructions Date of Administration Dosage Notes MICC B12 INJECTION 03/18/2021 lot # [id number] MICC B12 INJECTION 12/25/2022 1 mg Lot # [id number] MICC B12 INJECTION 01/15/2023 1 Semaglutide 01/15/2023 0.25 mg R tricep SQ Semaglutide 01/22/2023 sema 0.25mg Semaglutide 01/29/2023 0.25 mg LRQ SQ Semaglutide 02/05/2023 0.5 mg LRQ SQ Medical (General) History Medical History History ICD Code hypertension allergies sleep apnea Surgical History Surgery Date(Month/Year) section ankle surgery right knee replacement surgery Bonnie son [facility]
--- OUTSIDE RECORDS SUMMARY | 2025-06-20 22:00 | XMS_ITS | Clinical Summary ---
Author Organization [facility] [place] [facility] Prior to 11/19/[address] [place] [address] Care Team Providers Care Reconditioner Name Role Phone Melanie Salguero MD Primary [...] this topic Medical Devices Implanted Type Area Sample Body Builder Device Identifier Shelf Expiration Date Model / Serial / Lot Knee Fem Bsplt W Pa Stry-Howm 9536-O-733-645 552 - [id number] Implanted:Qty: 1 on 12/16/2021 by Rupesh Tai [place] [facility] Right: Knee [facility] [id number] 09/01/2026 5517-F-402 / / [id number] Knee Bsplt Triathlon Ti Sz 4 Stry-HowAccellos 3876-C-415-552 543 - [id number] Implanted:Qty: 1 on 12/16/2021 by Rupesh Tai [place] [facility] Right: Knee [facility] [id number] 10/11/2026 5536-B-400 / / [id number] Knee Tib Insrt Cr-X3 [id number] Stry-HowAccellos 9701-K-528-631 525 - [id number] Implanted:Qty: 1 on 12/16/2021 by Rupesh Tai MD [place] [facility] Right: Knee [facility] [id number] 05/29/2026 5530-G-411 / / [id number] Knee Bsplt Triathlon Ti Sz 3 Stry-Howm 8785-C-575-642 551 - [id number] Implanted:Qty: 1 on 01/11/2024 by Rupesh Tai MD at [facility] Left: Knee [facility] [id number] 07/27/2028 5536-B-300 / / [id number] Tibial Bearing Insert Cr 10mm Stry-Howm 6677-W-832-E-7 16435 - [id number] Implanted:Qty: 1 on 01/11/2024 by Rupesh Tai MD at [facility] Left: Knee [facility] [id number] 03/15/2028 5530-G-310 -E / / [id number] Knee Fem Bsplt W Pa Stry-Howm 5987-Z-177-645 555 - [id number] Implanted:Qty: 1 on 01/11/2024 by Rupesh Tai MD at [facility] Left: Knee [employer] [facility] [id number] 10/15/2028 5517-F-301 / / [id number] Explanted Type Area Sample Body Builder Device Identifier Shelf Expiration Date Model / Serial / Lot Knee Tib Insrt Cr-X3 [id number] Str[employer] 9348-Q-239-631 524 - [id number] Explanted:Qty: 1 on 12/16/2021 [place] [facility] Right: Knee [employer] [facility] [id number] 05/18/2023 5530-G-409 / / [id number] Advance Directives For more information, please contact: [phone] Latest Code Status on File Code Status Date Activated Date Inactivated Comments Full Code 01/11/2024 9:33 AM 01/13/2024 11:24 PM This code status was ascertained in the following way: discussion with patient . Code Status History Code Status Date Activated Date Inactivated Comments Full Code 01/11/2024 7:02 AM 01/11/2024 9:33 AM This code status was ascertained in the following way: discussion with healthcare retail wireless sales representative . Full Code 12/16/2021 11:19 AM 12/19/2021 12:34 AM Thi s code status was ascertained in the following way: per living will or healthcare instructions . Full Code 12/16/2021 6:32 AM 12/16/2021 11:19 AM This code status was ascertained in the following way: discussion with patient . Care Teams Reconditioner Relationship Specialty Start Date End Date Melanie Salguero MD [address] [place] [address] PCP - General Internal Medicine 08/26/21
--- OUTSIDE RECORDS SUMMARY | 2025-06-20 22:00 | XMS_ITS | Data Portability ---
Author Organization [place] [facility] Satnam Albarran [place] Address [address] [place] [address] Care Team Providers Care Vet Assistant Name Role Phone MAGO SHEN Primary Care [...] more view 2023 024 [email or web address] [facility], [address], [place], [address], 11/01/202 4 13:17:46 XR, wrist, 3 or more view 2023 024 [facility], [address], [address], [place], [address], 4 13:17:46 Medication Orders lidocain e (PF) 10 mg/mL (1 %) injectio n solution 2024 025 [id number], [address] [place], [address], 5 16:34:58 triamcin olone acetonid e 40 mg/mL suspensi on for injectio n 2024 025 [id number], [address] [place], [address], 5 16:34:58 lidocain e (PF) 10 mg/mL (1 %) injectio n solution 2024 025 [id number], [address] [place], [address], 5 16:34:58 triamcin olone acetonid e 40 mg/mL suspensi on for injectio n 2024 025 [id number], [address] [place], [address], 5 16:34:58 lidocain e (PF) 10 mg/mL (1 %) injectio n solution 2024 025 [email or web address] Not available 5 08:40:43 triamcin olone acetonid e 40 mg/mL suspensi on for injectio n 2024 025 Not available 5 08:40:43 lidocain e (PF) 10 mg/mL (1 %) injectio n solution 2023 024 [email or web address] Not available 4 11:49:48 triamcin olone acetonid e 40 mg/mL suspensi on for injectio n 2023 024 [email or web address] Not available 4 11:49:48 diclofen ac 1 % topical gel 2023 025 [id number], [address] [facility] [place], [address], 5 14:12:05 Patient TargetsNo targets recorded. Patient Instructions Encounter Date Encounter Id Patient Instructions Last Modified By Organization Details Last Modified Time 04/22/2024 [id number] views of bilateral wrist were ordered and reviewed today, this demonstrates no acute findings. 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 Otherwise anatomic alignment of the wrist and carpal bones. [email or web address] Not available 04/22/2024 12:24:00 03/24/2025 [id number] You have been provided with a cortisone [...] Acquired trigger finger of right middle finger 67430271117 9105 Active 2022 Ayden Khan MD [address], [place], [address] , [place] [facility] 3 11:23:45 Osteoarth ritis of left knee joint 02030608998 9109 Active 2022 AURA REYES PA-C [address], [place], [address] , [place] [facility] 3 11:04:02 Obstructi ve sleep apnea syndrome 74901326 Active 2023 Sleep apnea, obstructi ve Not Available [facility] 5 23:22:41 Osteoporo sis 66095322 Active 2023 Osteoporo sis Not Available [facility] 5 23:22:42 Gastroeso phageal reflux disease 352098060 Active 2023 GERD (gastroes ophageal reflux disease) Not Available [facility] 5 23:22:43 Hyperlipi demia 28104151 Active 2023 Hyperlipi demia Not Available [facility] 5 23:22:43 Asthma 403265796 Active 2023 Asthma Not Available [facility] 5 23:22:44 Hypertens tere disorder 13758725 Active 2023 Hypertens ion Not Available [facility] 5 23:22:44 Anemia 927843017 Active 2023 Anemia - Overview: Formattin g of this note might be different from the original. iron transfusi on weekly in 2103 Not Available [facility] 5 23:22:45 Urinary incontine nce 672543625 Active 2023 Urinary incontine nce Not Available [facility] 5 23:22:42 Periphera l nerve disease 017378092 Active 2023 Periphera l neuropath y - Overview: Formattin g of this note might be different from the original. 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 Procedures Surgical History Date Name Laterality Status Provider Name and Address Organization Details Recorded Time 03/24/20 25 LES trigger finger/De Quervain's injection completed Colleen Bowles [facility] 03/24/2025 14:02:20 03/24/20 25 AJR trigger finger/De Quervain's injection completed Colleen Bowles [facility] 03/24/2025 14:02:29 09/30/19 25 LES trigger finger/De Quervain's injection completed Pop Jones MD [address], [place], [address], [place] [facility] 09/29/2024 14:30:55 05/27/20 24 LES trigger finger/De Quervain's injection completed Blanquita Killian MD [address], [place], [address], [place] [facility] 05/30/2024 16:16:50 01/11/20 24 TOTAL KNEE ARTHROPLASTY (SURG) completed Macie Hopson [place] [facility] 01/12/2024 09:00:37 10/02/19 24 TOSHIA Knee Injection completed AURA REYES PA-C [address], [place], [address], [place] [facility] 10/02/2023 11:25:23 05/19/20 23 TOSHIA Knee Injection completed AURA REYES PA-C [address], [place], [address], [place] [facility] 05/19/2023 17:01:18 02/27/20 23 TOSHIA Knee Injection completed AURA REYES PA-C [address], [place], [address], [place] [facility] 02/26/2023 11:02:17 12/02/19 23 TOSHIA Knee Injection completed AURA REYES PA-C [address], [place], [address], [place] [facility] 12/01/2022 10:09:03 arthroplasty of knee completed Paula Beckford [place] [facility] 12/01/2022 09:53:12 delivery completed Paula Beckford [facility] 12/01/2022 09:53:19 Imaging Results None recorded. Procedure Notes None recorded. Medical Equipment None Reported. Allergies Allergen ID Allergen Name Allergen Category Reaction Reaction Severity Criticality Documentation Date Start Date Code Code System Note Provider Name and Address Organization Details Recorded Time 05071 metformin medicatio n Not available Not available Not available 03/14/20252023 4469 RxNorm React ion: Bonny veliz, lillie ity: Unkno wn;Ot her react ion(s ): bonny veliz Not Available [facility] 01:16:15 Medications Name Sig Start Date Stop [...] cm Annie Britt [facility] 09/29/2024 14:12:22 Date Recorded Body height Provider Name an d Address Organization Details Last Updated DateTime 03/29/2024 [address] [place] [facility] 03/29/2024 13:44:15 Date Recorded Body height Body mass index (BMI) Body weight Provider Name and Address Organization Details Last Updated DateTime 04/22/2024 165.1 cm 38.3 kg/m2 364422.[address] [place] [facility] 04/22/2024 11:20:11 Social History None recorded. [...] 50 mcg/0.25mL dose 06/21/2021 completed Not Available [facility] 06:10:58 COVID-19, mRNA, LNP-S, PF, 100 mcg/0.5mL dose or 50 mcg/0.25mL dose 07/19/2021 completed Not Available [facility] 06:10:58 Past Encounters Encounter ID Performer Location Encounter Start Date Encounter Closed Date Diagnosis/Indication Diagnosis SNOMED-CT Code Diagnosis ICD10 Code Diagnosis IMO Codes Diagnosis Note [id number] MARILEE COLLINS [place] [id number] 12/01/2022 09:20:27 12/01/2022 10:02:15 Osteoarthritis of right knee joint 9412590041 76790 M17.11 [id number] [place] [id number] 12/03/2022 10:42:28 12/03/2022 11:16:10 Pain in finger of right hand 2692707233 00995 M79.644 Acquired t inspector plumbing finger of right middle finger 0579704226 74703 M65.331 [id number] MARILEE COLLINS [place] [id number] 02/26/2023 09:48:44 02/26/2023 10:57:50 Osteoarthritis of left knee joint 6723823834 39258 M17.12 [id number] MARILEE COLLINS [address] [address] 05/19/2023 09:58:09 05/19/2023 10:46:46 Osteoarthritis of left knee joint 4117952194 74733 M17.12 [id number] MARILEE GOLDBERG [address] [address] 06/23/2023 13:54:40 06/23/2023 14:27:57 Osteoarthritis of left knee joint 1972734768 31976 M17.12 [id number] MARILEE COLLINS [facility] [address] [place] [address] [place] [id number] 10/02/2023 10:29:22 10/02/2023 11:23:55 Osteoarthritis of left knee joint 7325604570 34575 M17.12 [id number] MD RISA Quinonez [address] [address] 10/16/2023 13:19:48 10/16/2023 13:50:13 Osteoarthritis of left knee joint 6878739320 91539 M17.12 Arthritis of knee 597374 002 M13.869 [id number] MARILEE GOLDBERG [address] [address] 01/07/2024 09:07:02 01/07/2024 15:41:48 Osteoarthritis of left knee joint 0822636261 78948 M17.12 [id number] MARILEE GOLDBERG [address] [place] [address] [place] [address] 01/27/2024 09:39:09 01/27/2024 10:04:22 History of total knee arthroplasty 1616754806 105 Z96.652 Additional diagnosis detail: Status post left [place] replacemen t [id number] MD RISA Quinonez [address] [address] 02/23/2024 12:41:43 02/23/2024 13:02:10 History of total knee arthroplasty 1324309037 105 Z96.652 [id number] MD RISA Quinonez [address] [address] 03/29/2024 13:29:02 03/29/2024 13:46:47 History of total knee arthroplasty 1084715328 105 Z96.652 [id number] Blanquita Killian MD [facility] [place] [id number] 04/22/2024 11:02:24 04/22/2024 11:59:00 Pain of right wrist 8294379780 83132 M25.531 912176 Pain of left wrist 26974 09218 96131 M25.532 503342 Osteoarthr itis of metacarpophalangeal joint of finger 914511446 M19.042 4757588289 Radial sty loid tenosynovitis 68896661 M65.4 537398 Triggering of digit 2399 07220 M65.806 [id number] Blanquita Killian MD [facility] [place] [id number] 05/27/2024 14:52:40 05/27/2024 15:44:50 Radial styloid tenosynovitis 91587419 M65.4 [id number] Pop Jones MD [facility] [place] [id number] 09/29/2024 14:02:31 09/29/2024 14:39:31 Triggering of digit 014227374 M65.072 1048429 Radial sty loid tenosynovitis 60138497 M65.4 075169 [id number] Blanquita Killian MD [facility] [place] [id number] 03/24/2025 13:26:20 03/24/2025 14:28:27 Radial styloid tenosynovitis 96865478 M65.4 441062 Acquired t inspector plumbing finger of right middle finger 8720551496 85815 M65.331 Health Concerns Section Related Observation LastModified by Organization Detai ls LastModified Time None Recorded Concern Status LastModified by Organization Details LastModified Time None Recorded Advance Directives Directive None Recorded Payers Insurance Date Sequence Insurance Name Policy Number Policy Lassiter Covered Member ID Lassiter Member ID Guarantor Name 03/24/2025 1 [employer] (MEDICARE REPLACEMENT /ADVANTAGE - PPO) [id number] 1 Coleen Machado [id number] Gino Machado 03/23/2025 2 FOR LIFE ( - MEDICARE SUPPLEMENT) Gino Machado [id number] Gino Machado Notes Date Note Type Note Provider Name and Address Organization Details Recorded Time 04/22/2024 text/html ROS as noted in the HPI This is a 68-year-old lqeyg-bsqj-lkugyjir female who presents with bilateral, right worse [...] Blanquita Killian MD [address], [place], [address], [place] [facility] 04/22/2024 12:25:57 05/27/2024 text/html ROS as noted in the HPI She presents for follow-up of her left wrist Dequervain's tenosynovitis, she has tried brace, activity modification, anti-inflammatories with continued pain. She would like to consider a cortisone injection today. Blanquita Killian MD [address], [place], [address], [place] [facility] 05/30/2024 16:18:17 09/29/2024 text/html ROS as noted in the HPI 69-year-old woman presenting with recurrent left de Quervain's recently had injection with Dr. Killian 05/27/2024 resolved majority of the pain. She also has triggering of her right long finger she is interested in discussing treatment options Pop Jones MD [address], [place], [address], [place] [facility] 09/29/2024 14:32:38 03/24/2025 text/html ROS as [...] Blanquita Killian MD [address], [place], [address], [place] [facility] 03/24/2025 16:20:47 OBGyn Episode No OBEpisode recorded.
--- OUTSIDE RECORDS SUMMARY | 2025-06-20 22:00 | XMS_ITS | Clinical Summary ---
Author Organization [address] Address [address] [place] [address] Care Team Providers Care Nonprofit Manager Name Role Phone No, Pcp (Do Not [...] DETAILED DIRECTIONS Active lidocaine (LIDODERM) 5 %Indications:Ac bad river band sciatica Place 1 patch over 12 hours [...] to complete this topic Insurance [facility] M[facility] [employer] [facility] [employer] [facility] [employer] Care Teams Nonprofit Manager Relationship Specialty Start Date End Date No, Pcp (Do Not Change Name) PCP - General 10/25/24
--- OUTSIDE RECORDS SUMMARY | 2025-06-20 22:00 | XMS_ITS | Clinical Summary ---
Author Organization [email or web address] [facility] Address [address] [place] [address] Care Team Providers Care Tax Accounting Assistant Name Role Phone Melanie Maede MD Primary Care Provider Surgical History Surgery [...] this topic Medical Devices Implanted Type Area Kai [place] Device Identifier Shelf Expiration Date Model / Serial / Lot Knee Fem Bsplt W Pa [facility] [id number] Implanted:Qty: 1 on 12/16/2021 by Rupesh Tai MD Right: Knee [employer] [id number] 09/01/2026 5517-F-402 / / [id number] Knee Bsplt Triathlon Ti Sz 4 Stry-Howm [id number] Implanted:Qty: 1 on 12/16/2021 by Rupesh Tai MD Right: Knee [employer] [id number] 10/11/2026 5536-B-400 / / [id number] Knee Tib Insrt Cr-X3 [id number] Stry-Howm [id number] 525 Implanted:Qty: 1 on 12/16/2021 by Rupesh Tai MD Right: Knee [employer] [id number] 05/29/2026 5530-G-411 / / [id number] Knee Bsplt Triathlon Ti Sz 3 Stry-Howm 3225-[id number] Implanted:Qty: 1 on 01/11/2024 by Rupesh Tai MD Left: Knee [employer] [id number] 07/27/2028 5536-B-300 / / [id number] Tibial Bearing Insert Cr 10mm Stry-Howm [id number] Implanted:Qty: 1 on 01/11/2024 by Rupesh Tai MD Left: Knee [employer] [id number] 03/15/2028 5530-G-310 -E / / [id number] Knee Fem Bsplt W Pa Stry-Howm [id number] Implanted:Qty: 1 on 01/11/2024 by Rupesh Tai MD Left: Knee [employer] [id number] 10/15/2028 5517-F-301 / / [id number] Procedures Procedure Name Priority Date/Time Associated Diagnosis Comments [facility] SCREENING DIGITAL Routine 10/04/2021 8:52 AM EDT Encounter for screening mammogram for malignant neoplasm of breast from Last 3 Months or Most Recently Relevant to Health Maintenance Results * [facility] SCREENING DIGITAL (10/04/2021 8:52 AM EDT) Anatomical Region Laterality Modality Mammography 10/04/2021 8:02 AM EDT Narrative 10/04/2021 8:52 AM EDT [facility] Diagnostic Imaging Department [address] [place] [address] Patient: ANNEMARIEJACOBBEN Nath D.O.B./Age/Sex: 1955 - 66 - F Unit#: [id number] Location/Status: [facility] CLI Mnemonic/Ordering Site: [facility] Ordering Physician: MELANIE MEADE MD [facility] Screening Digital - 10/04/2124 EXAM: [facility] Screening Digital EXAM DATE AND TIME: 10/04/2021 8:25 AM HISTORY: Screening. Sister had breast carcinoma at age 63. COMPARISON: 03/26/20, 01/17/19, 12/28/14 TECHNIQUE: CC and MLO views of both breasts were obtained using full field digital mammography. Bilateral digital breast tomosynthesis was performed in the MLO projection. Computer aided detection with the [employer] 7.2-H was employed. TISSUE DENSITY: a. The [...] Routine screening mammogram BILATERAL in 1 year. [address], [address]41 3342F, 7025F Dictating Physician: RERE MARTIN MD Electronically Signed by: RERE MARTIN MD Dic Date/Time: 10/04/21850 Sign date/Time: 10/04/21851 Procedure Note Rere Martin MD - 06/11/2022 [facility] Diagnostic Imaging Department [address] [place] [address] Patient: ANNEMARIEJACOB Nath D.O.B./Age/Sex: 1955 - 66 - F Unit#: [id number] Location/Status: [facility] Mnemonic/Ordering Site: [facility] Ordering Physician: MELANIE MEADE MD [facility] Screening Digital - 10/04/21823 EXAM: [facility] Screening Digital EXAM DATE AND TIME: 10/04/2021 8:25 AM HISTORY: Screening. Sister had breast carcinoma at age 63. COMPARISON: 03/26/20, 01/17/19, 12/28/14 TECHNIQUE: CC and MLO views of both breasts were obtained using fullfield digital mammography. Bilateral digital breast tomosynthesis was performedin the MLO projection. Computer aided detection with the [employer] 7.2-Hwas employed. TISSUE DENSITY: a. The breasts [...] Routine screening mammogram BILATERAL in 1 year. [address]393, 74372 3342F, 7025F Dictating Physician: RERE MARTIN MD Electronically Signed by: RERE MARTIN MD Dic Date/Time: 10/04/21850 Sign date/Time: 10/04/21851 Melanie Meade MD IMG BI PROCEDURES Final Result from Last 3 Months or Most Recently Relevant to Health Maintenance Care Teams Tax Accounting Assistant Relationship Specialty Start Date End Date Melanie Meade MD [address] [place] [id number] PCP - General Internal Medicine 02/13/21
== END ==
LOC: HO.SL 20:30
PROVIDERS: PCP Internal Medicine; Visit Provider Hospitalist
DX: G47.34 Idiopathic sleep related nonobstructive alveolar hypoventilation (principal); G47.33 Obstructive sleep apnea (adult) (pediatric)
CPT/HCPCS: 95810

== ENCOUNTER → 2025-06-20 23:49 | Outpatient (BNV) | payer MEDICARE, OTHER, SELFPAY | PROVIDERS: PCP Internal Medicine; Visit Provider Internal Medicine | DX: G47.33 Obstructive sleep apnea (adult) (pediatric) (principal) | CPT/HCPCS: 95810 ==